=== PATIENT | female | born 1945 | race Caucasian/White ===

== ENCOUNTER 2016-11-11 08:07 | Day surgery (SDC) | payer MEDICARE ==
[2016-11-06 14:30] VITALS: BMI 31.8
[~2016-11-11 08:07] MED LIST: LACTATED RINGERS 1,000 ML IV SCH; LIDOCAINE 1% 20 ML VIAL (10MG/ML) FOR IV START INTRADERMA PRN
[2016-11-11] MEDS ORDERED: LACTATED RINGERS 1,000 ML IV ONE (08:37)
[2016-11-11 08:44] VITALS: TEMP 97.8
[2016-11-11] MEDS ORDERED: LIDOCAINE 1% 20 ML VIAL (10MG/ML) FOR IV START INTRADERMA ONE (08:44)
[2016-11-11 08:55] LABS: Glucose,Whole Blood 111 mg/dL (75-99)
[2016-11-11] MEDS ORDERED: LIDOCAINE 1% INJ 10MG/ML (20 ML MDV) ONE (09:42)
[2016-11-11] MEDS ORDERED: PROPOFOL 10 MG/ML 20 ML VIAL IV ONE (09:42)
[2016-11-11 10:04] VITALS: BP 110/59
--- NOTE | 2016-11-11 10:04 | P.PCN ---
Date of Procedure: 11/11/16 Procedure(s) Performed: Procedure: Total colonoscopy. Preoperative diagnosis: Screening for neoplasia. Postoperative diagnosis: Diverticulosis with no evidence of acute diverticulitis , strictures, polyps or cancer. Preparation: HalfLytely prep. Sedation: Was provided by anesthesia. Brief clinical history: The patient is a 71-year-old female who is referred for this evaluation for screening for neoplasia. She had a prior exam around 10 years ago. The patient has no abdominal complaints, bleeding or anemia. Procedure: With the patient on her left lateral decubitus position and after informed consent and adequate sedation, the perianal area was inspected and it did not show any fissures or fistulas. There were no masses felt on digital rectal examination. The Olympus CFQ 160L video colonoscope was then inserted in the rectum in the usual fashion and advanced to the cecum. There were a few diverticular orifices seen scattered in the sigmoid and on the right side with no evidence of acute diverticulitis or strictures. No polyps or tumors were seen. The mucosa appeared healthy. I retroflexed endoscope in the rectum before the endoscope was withdrawn. The patient tolerated the procedure well. Plan: The patient was reassured. Discussed dietary measures. Consideration can be given for repeat exam in 10 years depending on her overall health at that time. She will be discussing that with you. She will follow-up with you as planned.
[2016-11-11 10:31] VITALS: PULSE 56; RESP 18
== END 2016-11-11 10:44 | disposition home or self-care (01) ==
LOC: ORWHC2ENDO 08:07
DX: Z12.11 Encounter for screening for malignant neoplasm of colon (principal); K57.30 Diverticulosis of large intestine without perforation or abscess without bleeding; I12.9 Hypertensive chronic kidney disease with stage 1 through stage 4 chronic kidney disease, or unspecified chronic kidney disease; N18.9 Chronic kidney disease, unspecified; E78.5 Hyperlipidemia, unspecified; E11.9 Type 2 diabetes mellitus without complications; J45.909 Unspecified asthma, uncomplicated; M10.9 Gout, unspecified; Z79.84 Long term (current) use of oral hypoglycemic drugs; Z79.899 Other long term (current) drug therapy
CPT/HCPCS: J2001; J2704; G0121

== ENCOUNTER → 2016-12-23 | Outpatient (CLI) | payer MEDICARE ==
--- NOTE | 2016-12-23 14:11 | US ---
EXAMINATION TYPE: US kidneys/renal and bladder DATE OF EXAM: 12/23/2016 1:54 PM COMPARISON: NONE CLINICAL HISTORY: N18.3 STAGE III CKD. EXAM MEASUREMENTS: Right Kidney: 9.5 x 4.4 x 4.3cm cm Left Kidney: 9.9 x 4.4 x 4.8cm cm Right Kidney: no hydro or mass seen Left Kidney: no hydro or mass seen Bladder: wnl Bilateral Jets seen: Yes Incidental finding of thickened endometrium, post menopausal patient at 1.4cm There is no evidence for hydronephrosis at this point in time. No nephrolithiasis is seen. No lesia s are identified. The urinary bladder is anechoic. Bilateral ureteral jets are seen. IMPRESSION: No hydronephrosis is evident bilaterally. Note is made of abnormal thickened endometrium. Advise pelv ic ultrasound follow-up to better evaluate and characterize.
== END ==
LOC: RADUSWWP 13:32
PROVIDERS: ATTEND Family Medicine
DX: N18.3 Chronic kidney disease, stage 3 (moderate) (principal)
CPT/HCPCS: 76770

== ENCOUNTER → 2017-02-16 | Outpatient (CLI) | payer MEDICARE ==
--- NOTE | 2017-02-16 15:37 | US ---
EXAMINATION TYPE: US pelvic complete DATE OF EXAM: 02/16/2017 COMPARISON: NONE CLINICAL HISTORY: N85.00 ENDOMETRIAL HYPERPLASIA. Patient states no symptoms, 6, para 6 TECHNIQUE: Transvaginal (TV) and Transabdominal (TA) Date of LMP: 15+ years ago EXAM MEASUREMENTS: Uterus: 8.2 x 3.9 x 4.5 cm Endometrial Stripe: 1.2 cm Right Ovary: not seen Left Ovary: not seen 1. Uterus: anteverted, heterogeneous without any definite lesions seen at this time, nabothian cysts 2. Endometrium: thickened at 1.2cm, complex, vascular 3. Right Ovary: not seen due to overlying bowel 4. Left Ovary: not seen due to overlying bowel 5. Bilateral Adnexa: wnl 6. Posterior cul-de-sac: wnl Uterus is anteverted in shape and within normal limits in size. Endometriosis heterogeneously thicken ed with some solid and cystic component seen best on transvaginal evaluation. No free fluid is seen i n pelvis. Nabothian cysts are seen in the cervix. Neither ovary is present. No suspicious adnexal lesions are seen. IMPRESSION: Abnormal heterogeneous thickening of the endometrium for postmenopausal female, further i nvestigation with biopsy is advised.
== END | disposition home or self-care (01) ==
LOC: RADUSWWP 14:47
PROVIDERS: ATTEND Family Medicine
DX: R93.8 Abnormal findings on diagnostic imaging of other specified body structures (principal); N85.00 Endometrial hyperplasia, unspecified
CPT/HCPCS: 76830; 76856

== ENCOUNTER → 2017-03-30 | Outpatient (CLI) | payer MEDICARE ==
[2017-03-30 11:15] LABS: Basophils # (A) 0.1 k/uL (0-0.2); Basophils % (A) 1 %; CH 29.6; CHCM 33.3; Eosinophils # (A) 0.4 k/uL (0-0.7); Eosinophils % (A) 4 %; HCT 37.3 % (34.0-46.0); HDW 3.02; HGB 12.5 gm/dL (11.4-16.0); Luc # (Auto) 0.14; Luc % (Auto) 1; Lymphocytes # (A) 1.8 k/uL (1.0-4.8); Lymphocytes % (A) 18 %; MCH 29.9 pg (25.0-35.0); MCHC 33.4 g/dL (31.0-37.0); MCV 89.6 fL (80.0-100.0); Mean Platelet Volume 7.4; Monocytes # (A) 0.7 k/uL (0-1.0); Monocytes % (A) 7 %; Neutrophils # (A) 6.9 k/uL (1.3-7.7); Neutrophils % (A) 69 %; RBC 4.17 m/uL (3.80-5.40); RDW 15.5 % (11.5-15.5); WBC 9.9 k/uL (3.8-10.6)
== END | disposition home or self-care (01) ==
LOC: LABPAT 10:34
PROVIDERS: ATTEND Obstetrics & Gynecology
DX: Z01.810 Encounter for preprocedural cardiovascular examination (principal); Z01.818 Encounter for other preprocedural examination
CPT/HCPCS: 85025; 93005

== ENCOUNTER 2017-04-14 06:34 | Day surgery (SDC) | payer MEDICARE ==
[2017-04-08 12:35] VITALS: BMI 32.5
--- NOTE | 2017-04-13 07:06 | P.HPOB ---
History of Present Illness H&P Date: 04/13/17 Chief Complaint: Endometrial thickening on ultrasound This patient is a pleasant 71-year-old 6 para 6 female who referred herself to me for evaluation of an abnormal pelvic ultrasound. Patient apparently had an ultrasound done for unknown reasons that showed endometrium to be 1.2 cm with complex and vascular areas. Patient states she was not having any pain or bleeding and she herself is uncertain as to why she had the ultrasound. Patient did have an endometrial biopsy done by Dr. Thurston on February 19 did not show any tissue. Patient now presents for further evaluation by hysteroscopy and D&C. Review of Systems Constitutional: Denies chills, Denies fever Cardiovascular: Denies chest pain, Denies shortness of breath Respiratory: Denies cough Gastrointestinal: Denies abdominal pain, Denies diarrhea, Denies nausea, Denies vomiting Genitourinary: Reports as per HPI Menstruation: Reports amenorrhea, Reports postmenopausal Past Medical History Past Medical History: Asthma, Diabetes Mellitus, Hyperlipidemia, Hypertension, Renal Disease, Skin Disorder Additional Past Medical History / Comment(s): Psoriasis, kidneys functioning 29% , gout History of Any Multi-Drug Resistant Organisms: None Reported Past Surgical History: Cholecystectomy, Tubal Ligation Past Anesthesia/Blood Transfusion Reactions: No Reported Reaction Past Psychological History: No Psychological Hx Reported Smoking Status: Former smoker Past Alcohol Use History: None Reported Past Drug Use History: None Reported - Past Family History Mother Family Medical History: No Reported History Medications and Allergies Home Medications Medication Instructions Recorded Confirmed Type Atorvastatin [Lipitor] 40 mg PO HS 04/29/16 04/08/17 History Cholecalciferol [Vitamin D3] 2,000 unit PO DAILY 04/29/16 04/08/17 History Metoprolol Tartrate [Lopressor] 25 mg PO DAILY 04/29/16 04/08/17 History Allopurinol [Zyloprim] 300 mg PO AC-SUPPER 11/06/16 04/08/17 History Budesonide-Formot 160-4.5 Mcg 1 - 2 puff INHALATION BID 11/06/16 04/08/17 History [Symbicort 160-4.5 Mcg Inhaler] Glimepiride [Amaryl] 1 mg PO AC-BRKFST 11/06/16 04/08/17 History Aspirin [Adult Low Dose Aspirin EC] 81 mg PO DAILY 04/08/17 04/08/17 History Losartan [Cozaar] 50 mg PO DAILY 04/08/17 04/08/17 History Allergies Allergy/AdvReac Type Severity Reaction Status Date / Time No Known Allergies Allergy Verified 04/08/17 12:26 Exam - OBG Physical Exam Abdomen: bowel sounds normal, no diffuse tenderness, no bruit present, no guarding noted, no hepatomegaly, no splenomegaly, no mass Vulva: both: normal Vagina: no discharge, atrophic mucosa Cervix: no lesion, no discharge Uterus: normal size, normal contour Adnexa: both: normal Results Transvaginal ultrasound on February 16 showed the endometrium to be 1.2 cm. Assessment and Plan (1) Endometrial thickening on ultra sound Narrative/Plan: This is a pleasant 71-year-old 6 para 6 female with abnormal endometrial thickening on ultrasound who presents for hysteroscopy and D&C for further evaluation. Patient denies have discussed the surgery and risks including risks of infection, bleeding, possible uterine perforation. All the patient's questions are answered and a written consent is obtained. Status: Acute
[~2017-04-14 06:34] MED LIST changes: +HYDROmorphone 1 MG/ML 1 ML SYRINGE IVP PRN; -LIDOCAINE 1% 20 ML VIAL (10MG/ML) FOR IV START INTRADERMA PRN; +MIDAZOLAM 2 MG/2 ML VIAL IV PRN; +Pre Op ABX Message 1 EACH MISC MISCELLANE ONE
[2017-04-14 07:08] LABS: Glucose,Whole Blood 107 mg/dL (75-99)
[2017-04-14] MEDS ORDERED: LIDOCAINE 1% 20 ML VIAL (10MG/ML) FOR IV START INTRADERMA ONE (07:09)
[2017-04-14] MEDS: ONDANSETRON 4 MG/2 ML VIAL IVP ONE ×2 (07:13→08:19)
[2017-04-14] MEDS ORDERED: fentaNYL (PF) 50 MCG/ML 2 ML AMP ONE (07:23)
[2017-04-14] MEDS ORDERED: LIDOCAINE 1% INJ 10MG/ML (20 ML MDV) ONE (07:23)
[2017-04-14] MEDS ORDERED: PROPOFOL 10 MG/ML 20 ML VIAL IV ONE (07:23)
[2017-04-14 07:53] VITALS: TEMP 97.4
--- NOTE | 2017-04-14 07:55 | P.OP ---
Date of Procedure: 04/14/17 Preoperative Diagnosis: Abnormal endometrial thickening on ultrasound. Postoperative Diagnosis: Same Procedure(s) Performed: #1: Hysteroscopy. #2: Dilation and curettage. Implants: Anesthesia: MAC Surgeon: Clinton Gonzalez Estimated Blood Loss (ml): 10 Urine output (ml): 10 Pathology: other (Uterine curettings) Condition: stable Disposition: PACU Indications for Procedure: Please see dictated H&P for intimate details of this patient's admission. Brief summary is a pleasant 71-year-old 6 para 6 female who is self referred to pr for evaluation of abnormal pelvic ultrasound. Patient had a pelvic ultrasound showed endometrial thickening to 1.2 cm and insufficient endometrial biopsy. Patient now presents for hysteroscopy D&C for further evaluation. Patient does understand the surgery and risks including risks of infection, bleeding, possible uterine perforation. All the patient's questions are answered and a written consent is obtained. Operative Findings: This patient had a approximately 1-1/2-2 cm endometrial growths that appeared to be a polyp. Description of Procedure: This patient is taken to the operating room where she is laid in the supine position. She subsequently undergoes general mask anesthesia without incident. With an adequate level of anesthesia she's placed in the dorsal lithotomy position. She has a vaginal perineal prep and drape. Examination anesthesia shows a small uterus in the mid position. The bladder is drained at this time for 10 mL of clear urine. A weighted speculum was placed in the posterior vagina. Anterior lip of cervix was grabbed with an Allis clamp. Uterus is then sounded gently to about 7 cm. Gentle dilation at this time is done of the endocervix to allow the hysteroscope easily and the uterine cavity. Hysteroscopy is performed and the endocervix appears normal, there is a 1-1/2 cm growth in the endometrium consistent with a polyp. The rest the endometrium does look atrophic without other growths. This done the hysteroscope was then removed. Cervix is dilated more to allow a polyp forceps and the uterine cavity and the growth is then removed with appears to be intact. With this done a gentle thorough curettage of all 4 quadrants is done and this tissue sent off as well. With this completed the procedure is terminated. The Allis clamp and weighted speculum was removed. Patient is awakened from anesthesia and taken recovery room in satisfactory condition. There are no complications. All counts are correct 3.
[2017-04-14 08:13] LABS: Glucose,Whole Blood 103 mg/dL (75-99)
[2017-04-14] MEDS ORDERED: IBUPROFEN 200 MG TAB PO ONE (08:52)
[2017-04-14 09:34] VITALS: BP 135/60; PULSE 57; RESP 18
== END 2017-04-14 09:39 | disposition home or self-care (01) ==
LOC: OR 06:34
PROVIDERS: ATTEND Obstetrics & Gynecology
DX: N84.0 Polyp of corpus uteri (principal); I10 Essential (primary) hypertension; E78.5 Hyperlipidemia, unspecified; N28.9 Disorder of kidney and ureter, unspecified; E11.9 Type 2 diabetes mellitus without complications; Z79.84 Long term (current) use of oral hypoglycemic drugs; J44.9 Chronic obstructive pulmonary disease, unspecified; Z79.82 Long term (current) use of aspirin; Z79.51 Long term (current) use of inhaled steroids; Z79.899 Other long term (current) drug therapy
CPT/HCPCS: 88305; 58558; J2405; J2001; J3010; J2704

== ENCOUNTER → 2018-03-18 | Outpatient (CLI) | payer MEDICARE | END | disposition home or self-care (01) | LOC: LABWHC1 08:36 | PROVIDERS: ATTEND Family Medicine | DX: Z13.88 Encounter for screening for disorder due to exposure to contaminants (principal) | CPT/HCPCS: 36415; 83655 ==

== ENCOUNTER → 2018-11-03 | Outpatient (CLI) | payer MEDICARE ==
[2018-11-03 08:52] LABS: HCT 40.8 % (34.0-46.0); MCH 29.1 pg (25.0-35.0); MCHC 31.9 g/dL (31.0-37.0); MCV 91.1 fL (80.0-100.0); Mean Platelet Volume 7.4; Platelet Count 362 k/uL (150-450); RBC 4.48 m/uL (3.80-5.40); RDW 15.4 % (11.5-15.5); WBC 8.8 k/uL (3.8-10.6)
[2018-11-03 16:40] LABS: ALT 38 U/L (8-44); AST 32 U/L (13-35)
== END ==
LOC: LABWHC1 07:57
PROVIDERS: ATTEND Dermatology Dermatopathology
DX: L40.0 Psoriasis vulgaris (principal); Z79.899 Other long term (current) drug therapy
CPT/HCPCS: 36415; 84450; 84460; 85027

== ENCOUNTER → 2019-01-31 | Outpatient (CLI) | payer MEDICARE | END | disposition home or self-care (01) | LOC: LABWHC1 08:22 | PROVIDERS: ATTEND Dermatology Dermatopathology | DX: Z53.9 Procedure and treatment not carried out, unspecified reason (principal) ==

== ENCOUNTER → 2019-01-31 | Outpatient (CLI) | payer MEDICARE ==
[2019-01-31 09:20] LABS: Anisocytosis Slight; HGB 13.4 gm/dL (11.4-16.0); MCH 28.8 pg (25.0-35.0); Mean Platelet Volume 7.3; Platelet Count 326 k/uL (150-450); RBC 4.67 m/uL (3.80-5.40); RDW 16.3 % (11.5-15.5); WBC 10.7 k/uL (3.8-10.6)
[2019-01-31 17:30] LABS: ALT 35 U/L (8-44); AST 30 U/L (13-35)
== END ==
LOC: LABWHC1 08:55
PROVIDERS: ATTEND Dermatology Dermatopathology
DX: L40.0 Psoriasis vulgaris (principal); Z79.899 Other long term (current) drug therapy
CPT/HCPCS: 36415; 84450; 84460; 85027

== ENCOUNTER → 2019-04-18 | Outpatient (CLI) | payer MEDICARE ==
[2019-04-18 09:40] LABS: HCT 39.4 % (34.0-46.0); MCH 30.2 pg (25.0-35.0); MCV 91.3 fL (80.0-100.0); Mean Platelet Volume 7.5; Platelet Count 308 k/uL (150-450); RBC 4.31 m/uL (3.80-5.40); RDW 15.3 % (11.5-15.5); WBC 11.2 k/uL (3.8-10.6)
[2019-04-18 16:11] LABS: ALT 34 U/L (8-44); AST 26 U/L (13-35)
== END | disposition home or self-care (01) ==
LOC: LABWHC1 08:46
PROVIDERS: ATTEND Dermatology Dermatopathology
DX: L40.0 Psoriasis vulgaris (principal); Z79.899 Other long term (current) drug therapy
CPT/HCPCS: 36415; 84450; 84460; 85027

== ENCOUNTER → 2019-07-22 | Outpatient (CLI) | payer MEDICARE ==
[2019-07-22 09:06] LABS: HCT 41.6 % (34.0-46.0); HGB 13.7 gm/dL (11.4-16.0); MCH 30.5 pg (25.0-35.0); MCHC 32.9 g/dL (31.0-37.0); MCV 92.7 fL (80.0-100.0); Mean Platelet Volume 6.7; Platelet Count 309 k/uL (150-450); RBC 4.48 m/uL (3.80-5.40); WBC 11.8 k/uL (3.8-10.6)
[2019-07-22 16:21] LABS: ALT 42 U/L (8-44); AST 28 U/L (13-35)
== END | disposition home or self-care (01) ==
LOC: LABWHC1 08:06
PROVIDERS: ATTEND Dermatology Dermatopathology
DX: L40.0 Psoriasis vulgaris (principal); Z79.899 Other long term (current) drug therapy
CPT/HCPCS: 36415; 84450; 84460; 85027

== ENCOUNTER → 2019-10-25 | Outpatient (CLI) | payer MEDICARE ==
[2019-10-25 10:37] LABS: HGB 14.4 gm/dL (11.4-16.0); MCH 29.6 pg (25.0-35.0); MCHC 31.9 g/dL (31.0-37.0); MCV 92.5 fL (80.0-100.0); Mean Platelet Volume 8.5; Platelet Count 284 k/uL (150-450); RBC 4.86 m/uL (3.80-5.40); RDW 14.1 % (11.5-15.5); WBC 9.8 k/uL (3.8-10.6)
[2019-10-25 15:50] LABS: ALT 36 U/L (8-44); AST 30 U/L (13-35)
== END | disposition home or self-care (01) ==
LOC: LABWHC1 09:14
PROVIDERS: ATTEND Dermatology Dermatopathology
DX: L40.0 Psoriasis vulgaris (principal); Z79.899 Other long term (current) drug therapy
CPT/HCPCS: 36415; 84450; 84460; 85027

== ENCOUNTER → 2020-02-13 | Outpatient (CLI) | payer MEDICARE ==
[2020-02-13 10:54] LABS: HCT 44.2 % (34.0-46.0); HGB 13.8 gm/dL (11.4-16.0); MCH 28.7 pg (25.0-35.0); MCHC 31.1 g/dL (31.0-37.0); MCV 92.2 fL (80.0-100.0); Mean Platelet Volume 8.1; Platelet Count 322 k/uL (150-450); RBC 4.79 m/uL (3.80-5.40); RDW 15.2 % (11.5-15.5); WBC 12.7 k/uL (3.8-10.6)
[2020-02-13 17:20] LABS: ALT 39 U/L (8-44); AST 31 U/L (13-35)
== END | disposition home or self-care (01) ==
LOC: LABWHC1 08:48
PROVIDERS: ATTEND Dermatology Dermatopathology
DX: L40.0 Psoriasis vulgaris (principal); Z79.899 Other long term (current) drug therapy
CPT/HCPCS: 36415; 84450; 84460; 85027

== ENCOUNTER → 2020-05-17 | Outpatient (CLI) | payer MEDICARE ==
[2020-05-17 08:50] LABS: HCT 41.2 % (34.0-46.0); HGB 13.1 gm/dL (11.4-16.0); MCH 29.6 pg (25.0-35.0); MCHC 31.9 g/dL (31.0-37.0); MCV 92.6 fL (80.0-100.0); Mean Platelet Volume 8.5; Platelet Count 302 k/uL (150-450); RBC 4.44 m/uL (3.80-5.40); RDW 15.9 % (11.5-15.5); WBC 10.4 k/uL (3.8-10.6)
[2020-05-17 16:41] LABS: ALT 30 U/L (8-44); AST 29 U/L (13-35)
== END | disposition home or self-care (01) ==
LOC: LABWHC1 08:00
PROVIDERS: ATTEND Dermatology Dermatopathology
DX: L40.0 Psoriasis vulgaris (principal); Z79.899 Other long term (current) drug therapy
CPT/HCPCS: 36415; 84450; 84460; 85027

== ENCOUNTER → 2020-07-23 | Outpatient (CLI) | payer MEDICARE ==
[2020-07-23 08:31] LABS: Anisocytosis Slight; HGB 13.4 gm/dL (11.4-16.0); MCHC 33.4 g/dL (31.0-37.0); MCV 95.6 fL (80.0-100.0); Mean Platelet Volume 8.3; Platelet Count 299 k/uL (150-450); RBC 4.19 m/uL (3.80-5.40); RDW 16.4 % (11.5-15.5); WBC 11.6 k/uL (3.8-10.6)
[2020-07-23 15:50] LABS: ALT 33 U/L (8-44); AST 28 U/L (13-35)
== END | disposition home or self-care (01) ==
LOC: LABWHC1 07:49
PROVIDERS: ATTEND Dermatology Dermatopathology
DX: L40.0 Psoriasis vulgaris (principal); Z79.899 Other long term (current) drug therapy
CPT/HCPCS: 36415; 84450; 84460; 85027

== ENCOUNTER → 2020-10-02 | Outpatient (CLI) | payer MEDICARE ==
[2020-10-02 09:34] LABS: HCT 40.9 % (34.0-46.0); HGB 13.5 gm/dL (11.4-16.0); MCH 31.8 pg (25.0-35.0); MCHC 32.9 g/dL (31.0-37.0); MCV 96.5 fL (80.0-100.0); Mean Platelet Volume 7.8; Platelet Count 254 k/uL (150-450); RBC 4.24 m/uL (3.80-5.40); RDW 15.4 % (11.5-15.5); WBC 11.1 k/uL (3.8-10.6)
[2020-10-02 09:47] LABS: Potassium 4.8 mmol/L (3.5-5.1)
== END | disposition home or self-care (01) ==
LOC: LABPAT 08:36
PROVIDERS: ATTEND Internal Medicine Interventional Cardiology
DX: Z01.818 Encounter for other preprocedural examination (principal); I70.213 Atherosclerosis of native arteries of extremities with intermittent claudication, bilateral legs
CPT/HCPCS: 36415; 80051; 82565; 84520; 85027

== ENCOUNTER → 2020-10-23 | Outpatient (CLI) | payer MEDICARE ==
[2020-10-23 15:30] LABS: HCT 40.7 % (37.2-46.3); HGB 13.2 g/dL (12.0-15.0); MCH 30.8 pg (27.0-32.0); MCHC 32.4 g/dL (32.0-37.0); MCV 95.1 fL (80.0-97.0); Mean Platelet Volume 11.2 fL (9.5-12.2); Platelet Count 263 X 10*3/uL (140-440); RBC 4.28 X 10*6/uL (4.10-5.20); RDW 15.2 % (11.5-14.5); WBC 11.29 X 10*3/uL (4.50-10.00)
[2020-10-23 15:45] LABS: ALT 40 U/L (8-44); AST 30 U/L (13-35)
== END | disposition home or self-care (01) ==
LOC: LABWHC1 08:36
PROVIDERS: ATTEND Physician Assistant
DX: L40.0 Psoriasis vulgaris (principal); Z79.899 Other long term (current) drug therapy
CPT/HCPCS: 36415; 84450; 84460; 85027; 86480

== ENCOUNTER 2020-12-15 18:39 | Inpatient (IN) | payer MEDICARE ==
[2020-12-15] MEDS ORDERED: SODIUM CHLORIDE 0.9% 1,000 ML IV STA ×2 (19:09)
[2020-12-15] MEDS ORDERED: ALBUTEROL HFA INHALER INHALATION STA (19:17)
[2020-12-15] MEDS ORDERED: methylPREDNISolone SOD SUCCI 125 MG/2 ML VIAL IV STA (19:20)
[2020-12-15 19:32] LABS: Basophils % (A) 0 %; Eosinophils % (A) 0 %; HCT 38.4 % (34.0-46.0); Lymphocytes # (A) 0.9 k/uL (1.0-4.8); Lymphocytes % (A) 8 %; MCH 30.9 pg (25.0-35.0); MCHC 33.7 g/dL (31.0-37.0); MCV 91.5 fL (80.0-100.0); Mean Platelet Volume 8.3; Monocytes # (A) 0.7 k/uL (0-1.0); Monocytes % (A) 6 %; Neutrophils # (A) 9.7 k/uL (1.3-7.7); Neutrophils % (A) 83 %; Platelet Count 244 k/uL (150-450); RDW 15.1 % (11.5-15.5); WBC 11.6 k/uL (3.8-10.6)
[2020-12-15 19:47] LABS: Albumin 3.6 g/dL (3.5-5.0); Calcium 7.2 mg/dL (8.4-10.2); Magnesium 2.3 mg/dL (1.6-2.3); Total Bilirubin 0.9 mg/dL (0.2-1.3); Total Protein 6.8 g/dL (6.3-8.2)
[2020-12-15 19:48] LABS: Potassium 5.9 mmol/L (3.5-5.1)
--- NOTE | 2020-12-15 19:58 | XR ---
EXAMINATION TYPE: XR chest 2V DATE OF EXAM: 12/15/2020 COMPARISON: 12/05/2013 HISTORY: Difficulty breathing TECHNIQUE: 2 views FINDINGS: There is coarse interstitial infiltrate in both lungs. Heart size is normal. There are ches t leads. Costophrenic angles are fairly clear. Bony thorax is intact. IMPRESSION: Coarse pulmonary infiltrates appear new compared to old exam and consistent with moderate interstitial pneumonia. No pleural fluid seen to suggest heart failure.
[2020-12-15 20:01] LABS: Partial Thromboplastin Time 24.8 sec (22.0-30.0); Prothrombin Time 10.7 sec (9.0-12.0)
--- NOTE | 2020-12-15 20:35 | ED ---
SOB HPI - General Chief Complaint: Shortness of Breath Stated Complaint: Low O2 Time Seen by Provider: 12/15/20 18:53 Source: patient, RN notes reviewed Mode of arrival: ambulatory Limitations: no limitations - History of Present Illness Initial Comments: This is a 75-year-old female who has a history of diagnosed Covid 19 who was supposed get outpatient antibody infusion was found be hypoxemic on evaluation was brought here for further evaluation she is complaints of shortness of breath decreased oral intake. He was diagnosed yesterday with a viral infection. No other complaints by her she was found have her pulse ox in the 70s. MD Complaint: shortness of breath, cough - Related Data Home Medications Medication Instructions Recorded Confirmed Metoprolol Tartrate [Lopressor] 25 mg PO DAILY 04/29/16 12/15/20 Glimepiride [Amaryl] 0.5 mg PO AC-BRKFST 11/06/16 12/15/20 allopurinoL [Zyloprim] 300 mg PO DAILY 11/06/16 12/15/20 Azithromycin [Zithromax Z-pack (6 See Taper PO DIRECTED 12/15/20 12/15/20 tabs)] Dexamethasone 6 mg PO DAILY 12/15/20 12/15/20 Montelukast Sodium [Singulair] 10 mg PO DAILY 12/15/20 12/15/20 Pantoprazole Sodium [Protonix] 20 mg PO BID 12/15/20 12/15/20 Rosuvastatin [Crestor] 10 mg PO HS 12/15/20 12/15/20 Telmisartan [Micardis] 80 mg PO DAILY 12/15/20 12/15/20 Allergies Allergy/AdvReac Type Severity Reaction Status Date / Time No Known Allergies Allergy Verified 12/15/20 20:55 Review of Systems ROS Statement: Those systems with pertinent positive or pertinent negative responses have been documented in the HPI. ROS Other: All systems not noted in ROS Statement are negative. Past Medical History Past Medical History: Asthma, COPD, Diabetes Mellitus, Hyperlipidemia, Hypertension, Renal Disease, Skin Disorder Additional Past Medical History / Comment(s): Psoriasis, kidneys functioning 29%, gout History of Any Multi-Drug Resistant Organisms: None Reported Past Surgical History: Cholecystectomy, Tubal Ligation Past Anesthesia/Blood Transfusion Reactions: No Reported Reaction Past Psychological History: No Psychological Hx Reported Smoking Status: Former smoker Past Alcohol Use History: None Reported Past Drug Use History: None Reported - Past Family History Mother Family Medical History: No Reported History General Exam - General Exam Comments Initial Comments: This a well-developed well-nourished awake alert oriented 3 female Limitations: no limitations General appearance: alert, in no apparent distress Head exam: Present: atraumatic, normocephalic, normal inspection Eye exam: Present: normal appearance, PERRL, EOMI. Absent: scleral icterus, conjunctival injection, periorbital swelling ENT exam: Present: mucous membranes dry Neck exam: Present: normal inspection. Absent: tenderness, meningismus, lymphadenopathy Respiratory exam: Present: rales, decreased breath sounds. Absent: respiratory distress, wheezes, rhonchi, stridor Cardiovascular Exam: Present: regular rate, normal rhythm, normal heart sounds. Absent: systolic murmur, diastolic murmur, rubs, gallop, clicks GI/Abdominal exam: Present: soft, normal bowel sounds. Absent: distended, tenderness, guarding, rebound, rigid Extremities exam: Present: normal inspection, full ROM, normal capillary refill. Absent: tenderness, pedal edema, joint swelling, calf tenderness Back exam: Present: normal inspection Neurological exam: Present: alert, oriented X3, CN II-XII intact Psychiatric exam: Present: normal affect, normal mood Skin exam: Present: warm, dry, intact, normal color. Absent: rash Course Vital Signs 12/15/20 12/15/20 12/15/20 18:41 19:19 20:19 Temperature 97.9 F Pulse Rate 70 69 Respiratory 22 18 Rate Blood Pressure 130/64 121/60 O2 Sat by Pulse 93 L 93 L 95 Oximetry Medical Decision Making - Medical Decision Making I did discuss findings with the patient she did demonstrate evidence of acute kidney injury but he acidosis likely on the basis of dehydration she is Covid 19 positive in addition to hypoxemia. Sodium 126 and d-dimer is 1.21 this is also likely elevated on the basis of the QT kidney injury VQ scan will be ordered for the morning. - Lab Data Result diagrams: 12/15/20 19:15 12/15/20 19:15 Lab Results 12/15/20 12/15/20 12/15/20 Range/Units 19:15 19:15 19:15 WBC 11.6 H (3.8-10.6) k/uL RBC 4.20 (3.80-5.40) m/uL Hgb 13.0 (11.4-16.0) gm/dL Hct 38.4 (34.0-46.0) % MCV 91.5 (80.0-100.0) fL MCH 30.9 (25.0-35.0) pg MCHC 33.7 (31.0-37.0) g/dL RDW 15.1 (11.5-15.5) % Plt Count 244 (150-450) k/uL MPV 8.3 Neutrophils % 83 % Lymphocytes % 8 % Monocytes % 6 % Eosinophils % 0 % Basophils % 0 % Neutrophils # 9.7 H (1.3-7.7) k/uL Lymphocytes # 0.9 L (1.0-4.8) k/uL Monocytes # 0.7 (0-1.0) k/uL Eosinophils # 0.0 (0-0.7) k/uL Basophils # 0.0 (0-0.2) k/uL PT 10.7 (9.0-12.0) sec INR 1.0 (<1.2) APTT 24.8 (22.0-30.0) sec D-Dimer 1.21 H (<0.60) mg/L FEU Sodium 126 L (137-145) mmol/L Potassium 5.9 H (3.5-5.1) mmol/L Chloride 96 L (98-107) mmol/L Carbon Dioxide 17 L (22-30) mmol/L Anion Gap 13 mmol/L BUN 86 H (7-17) mg/dL Creatinine 2.98 H (0.52-1.04) mg/dL Est GFR (CKD-EPI)AfAm 17 (>60 ml/min/1.73 sqM) Est GFR (CKD-EPI)NonAf 15 (>60 ml/min/1.73 sqM) Glucose 161 H (74-99) mg/dL Lactic Ac Sepsis Rflx Plasma Lactic Acid Ming (0.7-2.0) mmol/L Calcium 7.2 L (8.4-10.2) mg/dL Magnesium 2.3 (1.6-2.3) mg/dL Total Bilirubin 0.9 (0.2-1.3) mg/dL AST 85 H (14-36) U/L ALT 43 H (4-34) U/L Alkaline Phosphatase 66 (38-126) U/L Creatine Kinase 370 H (30-135) U/L Troponin I (0.000-0.034) ng/mL NT-Pro-B Natriuret Pep pg/mL Total Protein 6.8 (6.3-8.2) g/dL Albumin 3.6 (3.5-5.0) g/dL 12/15/20 12/15/20 12/15/20 Range/Units 19:15 19:15 19:15 WBC (3.8-10.6) k/uL RBC (3.80-5.40) m/uL Hgb (11.4-16.0) gm/dL Hct (34.0-46.0) % MCV (80.0-100.0) fL MCH (25.0-35.0) pg MCHC (31.0-37.0) g/dL RDW (11.5-15.5) % Plt Count (150-450) k/uL MPV Neutrophils % % Lymphocytes % % Monocytes % % Eosinophils % % Basophils % % Neutrophils # (1.3-7.7) k/uL Lymphocytes # (1.0-4.8) k/uL Monocytes # (0-1.0) k/uL Eosinophils # (0-0.7) k/uL Basophils # (0-0.2) k/uL PT (9.0-12.0) sec INR (<1.2) APTT (22.0-30.0) sec D-Dimer (<0.60) mg/L FEU Sodium (137-145) mmol/L Potassium (3.5-5.1) mmol/L Chloride (98-107) mmol/L Carbon Dioxide (22-30) mmol/L Anion Gap mmol/L BUN (7-17) mg/dL Creatinine (0.52-1.04) mg/dL Est GFR (CKD-EPI)AfAm (>60 ml/min/1.73 sqM) Est GFR (CKD-EPI)NonAf (>60 ml/min/1.73 sqM) Glucose (74-99) mg/dL Lactic Ac Sepsis Rflx Plasma Lactic Acid Ming 2.9 H* (0.7-2.0) mmol/L Calcium (8.4-10.2) mg/dL Magnesium (1.6-2.3) mg/dL Total Bilirubin (0.2-1.3) mg/dL AST (14-36) U/L ALT (4-34) U/L Alkaline Phosphatase (38-126) U/L Creatine Kinase (30-135) U/L Troponin I <0.012 (0.000-0.034) ng/mL NT-Pro-B Natriuret Pep 621 pg/mL Total Protein (6.3-8.2) g/dL Albumin (3.5-5.0) g/dL 12/15/20 12/15/20 Range/Units 19:53 21:58 WBC (3.8-10.6) k/uL RBC (3.80-5.40) m/uL Hgb (11.4-16.0) gm/dL Hct (34.0-46.0) % MCV (80.0-100.0) fL MCH (25.0-35.0) pg MCHC (31.0-37.0) g/dL RDW (11.5-15.5) % Plt Count (150-450) k/uL MPV Neutrophils % % Lymphocytes % % Monocytes % % Eosinophils % % Basophils % % Neutrophils # (1.3-7.7) k/uL Lymphocytes # (1.0-4.8) k/uL Monocytes # (0-1.0) k/uL Eosinophils # (0-0.7) k/uL Basophils # (0-0.2) k/uL PT (9.0-12.0) sec INR (<1.2) APTT (22.0-30.0) sec D-Dimer (<0.60) mg/L FEU Sodium (137-145) mmol/L Potassium (3.5-5.1) mmol/L Chloride (98-107) mmol/L Carbon Dioxide (22-30) mmol/L Anion Gap mmol/L BUN (7-17) mg/dL Creatinine (0.52-1.04) mg/dL Est GFR (CKD-EPI)AfAm (>60 ml/min/1.73 sqM) Est GFR (CKD-EPI)NonAf (>60 ml/min/1.73 sqM) Glucose (74-99) mg/dL Lactic Ac Sepsis Rflx Y Plasma Lactic Acid Ming 1.8 (0.7-2.0) mmol/L Calcium (8.4-10.2) mg/dL Magnesium (1.6-2.3) mg/dL Total Bilirubin (0.2-1.3) mg/dL AST (14-36) U/L ALT (4-34) U/L Alkaline Phosphatase (38-126) U/L Creatine Kinase (30-135) U/L Troponin I (0.000-0.034) ng/mL NT-Pro-B Natriuret Pep pg/mL Total Protein (6.3-8.2) g/dL Albumin (3.5-5.0) g/dL - EKG Data -: EKG Interpreted by Me EKG Comments: Neuro sinus rhythm a 75 KS interval 188 QRS duration 82 QT since QTC 46/[address]-T wave changes - Radiology Data Radiology results: report reviewed (Imaging reviewed diffuse interstitial infiltrates), image reviewed Disposition Clinical Impression: Pneumonia due to COVID-19 virus, Acute kidney injury, Dehydration, Hyponatremia, Hypoxemia, Elevated d-dimer Disposition: ADMITTED IP TO THIS HOSP Condition: Fair Referrals: Nilsa Thurston MD [Primary Care Provider] - 1-2 days
[2020-12-15 20:56] LABS: D-Dimer 1.21 mg/L FEU (<0.60)
[2020-12-15] MEDS ORDERED: NALOXONE 0.4 MG/ML 1 ML VIAL IV PRN (22:41)
[2020-12-15] MEDS ORDERED: ACETAMINOPHEN TAB 325 MG TAB PO PRN (22:41)
[2020-12-15] MEDS: AZITHROMYCIN 250 MG TAB PO SCH (23:07)
[2020-12-15] MEDS: SODIUM CHLORIDE 0.9% 1,000 ML IV SCH (23:08)
[2020-12-16] MEDS: ALBUTEROL HFA INHALER INHALATION SCH ×5 (04:40→22:17)
--- NOTE | 2020-12-16 08:21 | NM ---
EXAMINATION TYPE: NM pul perfusion DATE OF EXAM: 12/16/2020 COMPARISON: Radiographs 12/15/2020. HISTORY: Shortness of breath and elevated d-dimer. Following administration of 4.9 mCi Tc 99m MAA. Images obtained post injection. FINDINGS: There are 2 small segmental perfusion defects in the right middle and lower lobe. Otherwise homogenou s perfusion elsewhere. IMPRESSION: Low probability for acute PE in the right lung.
[2020-12-16] MEDS: SODIUM CHLORIDE 0.9% 1,000 ML IV SCH ×2 (08:51→15:23)
[2020-12-16] MEDS: METOPROLOL TARTRATE 25 MG TAB PO SCH (08:52)
[2020-12-16] MEDS: ZINC SULFATE 220 MG CAP PO SCH (08:52)
[2020-12-16] MEDS: ASCORBIC ACID 500 MG TAB PO SCH (08:52)
[2020-12-16] MEDS: MONTELUKAST 10 MG TAB PO SCH (08:53)
[2020-12-16] MEDS: dexAMETHasone 2 MG TAB PO SCH (08:53)
[2020-12-16] MEDS: CHOLECALCIFEROL 25 MCG (1000 IU) TABLET PO SCH (08:53)
[2020-12-16 08:54] LABS: HCT 37.3 % (34.0-46.0); HGB 12.6 gm/dL (11.4-16.0); MCH 31.6 pg (25.0-35.0); MCHC 33.9 g/dL (31.0-37.0); Mean Platelet Volume 7.8; Platelet Count 249 k/uL (150-450); RBC 4.01 m/uL (3.80-5.40); RDW 15.2 % (11.5-15.5); WBC 10.1 k/uL (3.8-10.6)
[2020-12-16] MEDS: PANTOPRAZOLE 40 MG/10 ML VIAL IV SCH (08:54)
[2020-12-16] MEDS: ENOXAPARIN 40 MG/0.4 ML SYRINGE SQ SCH (08:55)
[2020-12-16] MEDS ORDERED: LOSARTAN 50 MG TAB PO SCH (09:00)
[2020-12-16] MEDS ORDERED: allopurinoL 300 MG TAB PO SCH (09:00)
[2020-12-16 09:06] LABS: Albumin 3.3 g/dL (3.5-5.0); Calcium 6.8 mg/dL (8.4-10.2); Magnesium 2.5 mg/dL (1.6-2.3); Potassium 5.7 mmol/L (3.5-5.1); Total Bilirubin 0.6 mg/dL (0.2-1.3); Total Protein 6.2 g/dL (6.3-8.2)
[2020-12-16] MEDS: GLIMEPIRIDE 1 MG TAB PO SCH (09:09)
[2020-12-16 09:36] LABS: Glucose,Whole Blood 191 mg/dL (75-99)
--- NOTE | 2020-12-16 10:23 | P.HPIM ---
History of Present Illness H&P Date: 12/16/20 HISTORY OF PRESENT ILLNESS: 75-year-old female one of Dr. Thurston's patient with multiple medical problem known to have history of COPD, type 2 diabetes, hypertension, chronic kidney disease who apparently was exposed to Covid 19 from her daughter and granddaughter 5 days ago, patient was tested on Thursday was positive. Patient developed to have worsening dyspnea and shortness of breath cough productive DrRamírez phlegm along with tightness and wheezes with low-grade temperature and nausea and abdominal pain with generalized fatigue tiredness become debilitated not been able to ambulate and walk her symptoms become much worse ended up coming to the emergency department at [facility] on 12/15/2020 where was seen and evaluated her chest x-ray showed bilateral infiltrate, patient was hypoxic requiring high flow O2. Patient was started on steroid pulmonary consultation was obtained patient will be hospitalized with above problem. REVIEW OF SYSTEMS: Constitutional: Generalized fatigue, low-grade temperature, night sweats, weakness and lethargy and significant shortness of breath. EENT: No headache. No blurred vision or double vision, no loss of vision. No loss of Hearing, no ringing in the ears, no dizziness. No nasal drainage or congestion. No epistaxis. No sore throat. Lungs: Significant dyspnea and shortness of breath cough wheezes. Cardiovascular: No chest pain, no lower extremity edema. No palpitations. No paroxysmal nocturnal dyspnea. No orthopnea. No lightheadedness or dizziness. No syncopal episodes. Abdominal: No abdominal pain. No nausea, vomiting. No diarrhea. No constipation. No bloody or tarry stools.. No loss of appetite. Genitourinary: No dysuria, increased frequency, urgency. No urinary retention. Musculoskeletal: No myalgias. No muscle weakness, no gait dysfunction, no frequent falls. No back pain. No neck pain. Integumentary: No wounds, no lesions. No rash or pruritus. No unusual bruising. No change in hair or nails. Neurologic: No aphasia. No facial droop. No change in mentation. No head injury. No headache. No paralysis. No paresthesia. Psychiatric: No depression. No anxiety. No mood swings. Endocrine: No abnormal blood sugars. No weight change. No excessive sweating or thirst. No cold intolerance. SOCIAL HISTORY: She quit smoking 16 years ago he smoked pack a day for 20 years no alcohol abuse no drug use she is and lives with her family. FAMILY HISTORY: Father age 83 from CVA, mother age 80 from cancer most likely breast, patient had 6 children are all living and well and 16 siblings few have passed from CAD cancer and COPD. PHYSICAL EXAMINATION: Gen: This is 75-year-old female in mild respiratory distress slightly bit anxious having mild wheezes. HEENT: Head is atraumatic, normocephalic. Pupils equal, round. Sclerae is anicteric. NECK: Supple. No JVD. No lymphadenopathy. No thyromegaly. LUNGS: Decreased breath some bilateral rhonchi slight crackles in the bases more in the right than the left side mild expiratory wheezes. HEART: Regular rate and rhythm. No murmur. Mild tachycardia ABDOMEN: Soft. Bowel sounds are present. No masses. No tenderness. EXTREMITIES: No pedal edema. No calf tenderness. NEUROLOGICAL: Patient is awake, alert and oriented x3. Cranial nerves 2 through 12 are grossly intact. ASSESSMENT AND PLAN: 1. Acute respiratory failure: Secondary to Covid 19 mellitus. Continue high flow O2 deny consultation continue updraft treatment and steroid. 2. Acute Covid 19 pneumonitis: Patient be seen pulmonary she might be a good candidate to start antiviral medication, she is ready pastime for monoclonal antibiotic infusion, continue steroid management continue updraft continue O2 along with zinc vitamin D and vitamin C. Patient marker will be drawn every 2 days and repeat chest x-ray returned days. 3. D-dimer: The kidney function being abnormal patient will be going for VQ scan in the meanwhile continue anticoagulation management.. 4. Acute kidney injury with chronic kidney disease: Her creatinine is much worse up to 2.98 with GFR only at 15, continue hydration we'll consult nep hrology.. 5. Severe hyponatremia: Most likely the effect of the Covid 19 causing mild SIADH, continue fluid restriction repeat CMP in 24 hours. 6. Type 2 diabetes: Continue Accu-Chek with sliding scales coverage orders home oral hypoglycemic medication which has less effect this point.. 7. COPD with slight excess patient specially with the Covid 19 infection and pneumonitis continue dexamethasone 6 mg a day, continue DuoNeb and Pulmicort. 8. Hypertension: Resume losartan 150 mg a day along with metoprolol 25 mg daily. 9. Hyperlipidemia: Continue patient on atorvastatin 20 mg daily.. 10. GI prophylaxis: Continue patient on pantoprazole 40 mg a day. 11. DVT prophylaxis: Continue Lovenox 40 mg subcutaneous daily. CODE STATUS: Full code. Patient will be admitted to the hospital for a minimum of 2 night stay. Past Medical History Past Medical History: Asthma, COPD, Diabetes Mellitus, Hyperlipidemia, Hypertension, Renal Disease, Skin Disorder Additional Past Medical History / Comment(s): Psoriasis, kidneys functioning 29%, gout History of Any Multi-Drug Resistant Organisms: None Reported Past Surgical History: Cholecystectomy, Tubal Ligation Past Anesthesia/Blood Transfusion Reactions: No Reported Reaction Past Psychological History: No Psychological Hx Reported Smoking Status: Former smoker Past Alcohol Use History: None Reported Past Drug Use History: None Reported - Past Family History Mother Family Medical History: No Reported History Medications and Allergies Home Medications Medication Instructions Recorded Confirmed Type Metoprolol Tartrate [Lopressor] 25 mg PO DAILY 04/29/16 12/15/20 History Glimepiride [Amaryl] 0.5 mg PO AC-BRKFST 11/06/16 12/15/20 History allopurinoL [Zyloprim] 300 mg PO DAILY 11/06/16 12/15/20 History Azithromycin [Zithromax Z-pack (6 See Taper PO DIRECTED 12/15/20 12/15/20 H istory tabs)] Dexamethasone 6 mg PO DAILY 12/15/20 12/15/20 History Montelukast Sodium [Singulair] 10 mg PO DAILY 12/15/20 12/15/20 History Pantoprazole Sodium [Protonix] 20 mg PO BID 12/15/20 12/15/20 History Rosuvastatin [Crestor] 10 mg PO HS 12/15/20 12/15/20 History Telmisartan [Micardis] 80 mg PO DAILY 12/15/20 12/15/20 History Allergies Allergy/AdvReac Type Severity Reaction Status Date / Time No Known Allergies Allergy Verified 12/15/20 20:55 Physical Exam Vitals: Vital Signs Temp Pulse Resp BP Pulse Ox 12/16/20 04:51 75 18 128/74 93 L 12/16/20 02:44 97.5 F L 61 18 114/54 98 12/15/20 23:13 66 20 125/95 93 L 12/15/20 20:19 69 18 121/60 95 12/15/20 19:19 93 L 12/15/20 18:41 97.9 F 70 22 130/64 93 L Intake and Output 12/15/20 12/15/20 12/16/20 14:59 22:59 06:59 Other: Weight 76.204 kg Results CBC & Chem 7: 12/16/20 08:35 12/16/20 08:35 Labs: Abnormal Lab Results - Last 24 Hours (Table) 12/15/20 12/15/20 12/15/20 Range/Units 19:15 19:15 19:15 WBC 11.6 H (3.8-10.6) k/uL Neutrophils # 9.7 H (1.3-7.7) k/uL Lymphocytes # 0.9 L (1.0-4.8) k/uL D-Dimer 1.21 H (<0.60) mg/L FEU Sodium 126 L (137-145) mmol/L Potassium 5.9 H (3.5-5.1) mmol/L Chloride 96 L (98-107) mmol/L Carbon Dioxide 17 L (22-30) mmol/L BUN 86 H (7-17) mg/dL Creatinine 2.98 H (0.52-1.04) mg/dL Glucose 161 H (74-99) mg/dL Plasma Lactic Acid Ming (0.7-2.0) mmol/L Calcium 7.2 L (8.4-10.2) mg/dL AST 85 H (14-36) U/L ALT 43 H (4-34) U/L Creatine Kinase 370 H (30-135) U/L Coronavirus (PCR) (Not Detectd) 12/15/20 12/15/20 Range/Units 19:15 23:12 WBC (3.8-10.6) k/uL Neutrophils # (1.3-7.7) k/uL Lymphocytes # (1.0-4.8) k/uL D-Dimer (<0.60) mg/L FEU Sodium (137-145) mmol/L Potassium (3.5-5.1) mmol/L Chloride (98-107) mmol/L Carbon Dioxide (22-30) mmol/L BUN (7-17) mg/dL Creatinine (0.52-1.04) mg/dL Glucose (74-99) mg/dL Plasma Lactic Acid Ming 2.9 H* (0.7-2.0) mmol/L Calcium (8.4-10.2) mg/dL AST (14-36) U/L ALT (4-34) U/L Creatine Kinase (30-135) U/L Coronavirus (PCR) Detected A (Not Detectd)
--- NOTE | 2020-12-16 12:02 | P.CNPUL ---
History of Present Illness Consult date: 12/16/20 Requesting physician: Hay Menon Reason for consult: hypoxemia, pneumonia Chief complaint: Shortness of breath and cough. History of present illness: This is a 75-year-old female primarily a patient Dr. Thurston, patient is known to have history of COPD, hypertension, type 2 diabetes, chronic kidney disease. Patient was recently exposed to her granddaughter and she tested positive for covid 19. Patient tested positive last Thursday. However she had symptoms now for almost 10 days symptoms are classic symptoms of Covid 19 pneumonia. Patient had cough, shortness of breath, fever, nausea vomiting, diarrhea, fatigue, aches and pains. Patient was seen in the emergency room on 12/15/2020, and her chest x- ray showed evidence of bilateral infiltrates. Patient was also noted to be hypoxic, and she required high flow oxygen and high FiO2. Patient is presently on a nonrebreather mask, 100% FiO2, and her O2 saturation is marginal. Patient was admitted to the ICU after I reviewed her chest x-ray and I reviewed her vitals, and I saw her on consultation in the ICU. Patient is now on a high flow cannula at 50 L in the ICU, and her O2 saturation 92%. Hemodynamically stable. And she had a temp of 98. CBC was relatively normal. Electrolytes showed elevated potassium of 5.7 BUN is 71 creatinine 2.32. LDH was 1760, lactic acid was 1.8. And her PCR for wan virus was positive. D-dimer was 1.87. Review of Systems Constitutional: Generalized fatigue, low-grade temperature, night sweats, weakness and lethargy and significant shortness of breath. EENT: No headache. No blurred vision or double vision, no loss of vision. No loss of Hearing, no ringing in the ears, no dizziness. No nasal drainage or congestion. No epistaxis. No sore throat. Lungs: Significant dyspnea and shortness of breath cough wheezes. Cardiovascular: No chest pain, no lower extremity edema. No palpitations. No paroxysmal nocturnal dyspnea. No orthopnea. No lightheadedness or dizziness. No syncopal episodes. Abdominal: No abdominal pain. No nausea, vomiting. No diarrhea. No constipation. No bloody or tarry stools.. No loss of appetite. Genitourinary: No dysuria, increased frequency, urgency. No urinary retention. Musculoskeletal: No myalgias. No muscle weakness, no gait dysfunction, no frequent falls. No back pain. No neck pain. Integumentary: No wounds, no lesions. No rash or pruritus. No unusual bruising. No change in hair or nails. Neurologic: No aphasia. No facial droop. No change in mentation. No head injury. No headache. No paralysis. No paresthesia. Psychiatric: No depression. No anxiety. No mood swings. Endocrine: No abnormal blood sugars. No weight change. No excessive sweating or thirst. No cold intolerance. Past Medical History Past Medical History: Asthma, COPD, Diabetes Mellitus, Hyperlipidemia, Hypertension, Renal Disease, Skin Disorder Additional Past Medical History / Comment(s): Psoriasis, kidneys functioning 29%, gout History of Any Multi-Drug Resistant Organisms: None Reported Past Surgical History: Cholecystectomy, Tubal Ligation Past Anesthesia/Blood Transfusion Reactions: No Reported Reaction Past Psychological History: No Psychological Hx Reported Smoking Status: Former smoker Past Alcohol Use History: None Reported Past Drug Use History: None Reported - Past Family History Mother Family Medical History: No Reported History Medications and Allergies Home Medications Medication Instructions Recorded Confirmed Type Metoprolol Tartrate [Lopressor] 25 mg PO DAILY 04/29/16 12/15/20 History Glimepiride [Amaryl] 0.5 mg PO AC-BRKFST 11/06/16 12/15/20 History allopurinoL [Zyloprim] 300 mg PO DAILY 11/06/16 12/15/20 History Azithromycin [Zithromax Z-pack (6 See Taper PO DIRECTED 12/15/20 12/15/20 History tabs)] Dexamethasone 6 mg PO DAILY 12/15/20 12/15/20 History Montelukast Sodium [Singulair] 10 mg PO DAILY 12/15/20 12/15/20 History Pantoprazole Sodium [Protonix] 20 mg PO BID 12/15/20 12/15/20 History Rosuvastatin [Crestor] 10 mg PO HS 12/15/20 12/15/20 History Telmisartan [Micardis] 80 mg PO DAILY 12/15/20 12/15/20 History Allergies Allergy/AdvReac Type Severity Reaction Status Date / Time No Known Allergies Allergy Verified 12/15/20 20:55 Physical Exam Vitals: Vital Signs Temp Pulse Resp BP Pulse Ox 12/16/20 11:00 98.0 F 62 24 100/50 92 L 12/16/20 10:10 65 24 88 L 12/16/20 10:00 63 18 110/58 87 L 12/16/20 09:50 65 22 87 L 12/16/20 09:40 97.5 F L 66 26 H 128/111 88 L 12/16/20 09:31 72 12/16/20 08:50 97.6 F 76 18 130/61 94 L 12/16/20 07:19 76 20 122/86 91 L 12/16/20 06:00 57 L 18 99 12/16/20 04:51 75 18 128/74 93 L 12/16/20 02:44 97.5 F L 61 18 114/54 98 12/15/20 23:13 66 20 125/95 93 L 12/15/20 20:19 69 18 121/60 95 12/15/20 19:19 93 L 12/15/20 18:41 97.9 F 70 22 130/64 93 L Intake and Output 12/15/20 12/16/20 12/16/20 22:59 06:59 14:59 Intake Total 260 Output Total 0 Balance 260 Intake: IV 260 Sodium Chloride 0.9% 1, 260 000 ml @ 130 mls/hr IV . [id number] [facility] Rx#:[id number] Output: Urine 0 Other: # Voids 1 Weight 76.204 kg Physical Exam Physical exam revealed a 75-year-old female pleasant in mild respiratory distress. Head: Atraumatic, normocephalic. HEENT:[Neck is supple.] [No neck masses.] [No thyromegaly.] [No JVD.] Chest: [Symmetrical chest expansion, fine crackles at the bases, no rhonchi and no wheezes Cardiac Exam: [Normal S1 and S2, no S3 gallop, no murmur.] Abdomen: [Soft, nontender, no megaly, no rebound, no guarding, normal bowel sounds.] Extremities: [No clubbing, no edema, no cyanosis.] Neurological Exam: [No focal neurologic deficit.] Alert oriented 3. Psychiatric: Normal mood, affect and normal mental status examination. Results - Laboratory Findings CBC and BMP: 12/16/20 08:35 12/16/20 08:35 PT/INR, D-dimer PT 10.7 sec (9.0-12.0) 12/15/20 19:15 INR 1.0 (<1.2) 12/15/20 19:15 D-Dimer 1.87 mg/L FEU (<0.60) H 12/16/20 08:35 Abnormal lab findings: Abnormal Labs 12/15/20 12/15/20 12/15/20 19:15 19:15 19:15 WBC 11.6 H Neutrophils # 9.7 H Lymphocytes # 0.9 L D-Dimer 1.21 H Sodium 126 L Potassium 5.9 H Chloride 96 L Carbon Dioxide 17 L BUN 86 H Creatinine 2.98 H Glucose 161 H POC Glucose (mg/dL) Plasma Lactic Acid Ming Calcium 7.2 L Magnesium AST 85 H ALT 43 H Lactate Dehydrogenase Creatine Kinase 370 H Total Protein Albumin Coronavirus (PCR) 12/15/20 12/15/20 12/16/20 19:15 23:12 08:35 WBC Neutrophils # Lymphocytes # D-Dimer 1.87 H Sodium Potassium Chloride Carbon Dioxide BUN Creatinine Glucose POC Glucose (mg/dL) Plasma Lactic Acid Ming 2.9 H* Calcium Magnesium AST ALT Lactate Dehydrogenase Creatine Kinase Total Protein Albumin Coronavirus (PCR) Detected A 12/16/20 12/16/20 08:35 09:35 WBC Neutrophils # Lymphocytes # D-Dimer Sodium 135 L Potassium 5.7 H Chloride Carbon Dioxide 21 L BUN 71 H Creatinine 2.32 H Glucose 200 H POC Glucose (mg/dL) 191 H Plasma Lactic Acid Ming Calcium 6.8 L Magnesium 2.5 H AST 82 H ALT 49 H Lactate Dehydrogenase 1760 H Creatine Kinase Total Protein 6.2 L Albumin 3.3 L Coronavirus (PCR) - Diagnostic Findings Chest x-ray: image reviewed (Diffuse bilateral interstitial infiltrates) Assessment and Plan Assessment: Impression: Acute hypoxic respiratory failure secondary to acute covid 19 pneumonitis. Acute on chronic kidney disease. Could be related to hypovolemia. Hypovolemic hyponatremia on presentation, improved with hydration. Acute hyperkalemia secondary to acute on chronic kidney disease. Elevated inflammatory markers. Type 2 diabetes. Benign essential hypertension. Dyslipidemia. History of underlying COPD, presently in active. Recommendation: Continue high FiO2 and titrate accordingly. Continue hydration using 0.9 normal saline at 100 mL per hour. Continue the Covid 19 cocktails. Continue Lovenox. Continue Decadron. Continue GI and DVT prophylaxis. Continue tight control of her blood sugars. Will recommend actemra and convalescent plasma if available. Patient is beyond the window for treatment with REM. Prognosis is definitely guarded. We'll continue to follow in the ICU Time with Patient: Greater than 30
[2020-12-16 12:16] LABS: Glucose,Whole Blood 194 mg/dL (75-99)
[2020-12-16 12:17] LABS: Ferritin 2442.5 ng/mL (10.0-291.0)
--- NOTE | 2020-12-16 12:22 | P.NPCON ---
History of Present Illness - Reason for Consult Consult date: 12/16/20 acute renal failure, hyperkalemia - Chief Complaint Shortness of breath - History of Present Illness 75-year-old female coming to the hospital with the above complaints. She was diagnosed with Covid last week Thursday and was staying at home. She was developing progressive shortness of breath associated with cough and phlegm. She also had low-grade fever with abdominal pain. She has chronic kidney disease stage III with a baseline creatinine of 1.5 MG per DL. On admission serum creatinine was 2.9, started on IV fluids improved to 2.3 today. She had fevers associated with poor oral intake nausea vomiting and diarrhea. No NSAID use or recent contrast studies. She takes allopurinol and telmisartan at home. Blood pressures were in 80s systolic on arrival. Review of Systems Constitutional: Reports as per HPI Past Medical History Past Medical History: Asthma, COPD, Diabetes Mellitus, Hyperlipidemia, Hyp ertension, Renal Disease, Skin Disorder Additional Past Medical History / Comment(s): Psoriasis, kidneys functioning 29%, gout History of Any Multi-Drug Resistant Organisms: None Reported Past Surgical History: Cholecystectomy, Tubal Ligation Past Anesthesia/Blood Transfusion Reactions: No Reported Reaction Past Psychological History: No Psychological Hx Reported Smoking Status: Former smoker Past Alcohol Use History: None Reported Past Drug Use History: None Reported - Past Family History Mother Family Medical History: No Reported History Medications and Allergies Home Medications Medication Instructions Recorded Confirmed Type Metoprolol Tartrate [Lopressor] 25 mg PO DAILY 04/29/16 12/15/20 History Glimepiride [Amaryl] 0.5 mg PO AC-BRKFST 11/06/16 12/15/20 History allopurinoL [Zyloprim] 300 mg PO DAILY 11/06/16 12/15/20 History Azithromycin [Zithromax Z-pack (6 See Taper PO DIRECTED 12/15/20 12/15/20 History tabs)] Dexamethasone 6 mg PO DAILY 12/15/20 12/15/20 History Montelukast Sodium [Singulair] 10 mg PO DAILY 12/15/20 12/15/20 History Pantoprazole Sodium [Protonix] 20 mg PO BID 12/15/20 12/15/20 History Rosuvastatin [Crestor] 10 mg PO HS 12/15/20 12/15/20 History Telmisartan [Micardis] 80 mg PO DAILY 12/15/20 12/15/20 History Allergies Allergy/AdvReac Type Severity Reaction Status Date / Time No Known Allergies Allergy Verified 12/15/20 20:55 Physical Exam Vitals: Vital Signs Temp Pulse Resp BP Pulse Ox 12/16/20 12:00 98.0 F 65 17 117/76 94 L 12/16/20 11:00 98.0 F 62 24 100/50 92 L 12/16/20 10:10 65 24 88 L 12/16/20 10:00 63 18 110/58 87 L 12/16/20 09:50 65 22 87 L 12/16/20 09:40 97.5 F L 66 26 H 128/111 88 L 12/16/20 09:31 72 12/16/20 08:50 97.6 F 76 18 130/61 94 L 12/16/20 07:19 76 20 122/86 91 L 12/16/20 06:00 57 L 18 99 12/16/20 04:51 75 18 128/74 93 L 12/16/20 02:44 97.5 F L 61 18 114/54 98 12/15/20 23:13 66 20 125/95 93 L 12/15/20 20:19 69 18 121/60 95 12/15/20 19:19 93 L 12/15/20 18:41 97.9 F 70 22 130/64 93 L Intake and Output 12/15/20 12/16/20 12/16/20 22:59 06:59 14:59 Intake Total 335 Output Total 550 Balance -215 Intake: IV 335 Sodium Chloride 0.9% 1, 335 000 ml @ 75 mls/hr IV . [id number] [facility] Rx#:[id number] Output: Urine 550 Other: # Voids 0 Weight 76.204 kg Exam limited secondary to Covid 19 pandemic to limit PPE. Results - Lab Results Most recent lab results Calcium 6.8 mg/dL (8.4-10.2) L 12/16/20 08:35 Magnesium 2.5 mg/dL (1.6-2.3) H 12/16/20 08:35 12/16/20 08:35 12/16/20 08:35 Assessment and Plan Assessment: #1 nonoliguric acute kidney injury suspect hemodynamic /Covid 19 ATN with low blood pressure and concomitant use of telmisartan. #2 hyperkalemia secondary to acute kidney injury/telmisartan. #3 hyponatremia secondary to hypovolemia from nausea vomiting and diarrhea. #4 Covid 19 pneumonia #5 chronic kidney disease stage III suspect nephrosclerosis with a baseline creatinine of 1.5 MG per DL. Plan: #1 agree with IV fluids continue at 75 ML's an hour. Monitor closely for respiratory status. #2 stop losartan/allopurinol with hyperkalemia and acute kidney injury. #3 bladder scan to rule out urinary retention. #4 strict ins and outs, renal ultrasound, urine analysis and urine electrolytes. #5 avoid nephrotoxic agents and hypotensive episodes #6 no acute indication for INTRAMURAL DIRECTOR at this time.
[2020-12-16] MEDS: INSULIN ASPART (NovoLOG) 100 UNIT/ML VIAL SQ SCH ×3 (12:54→20:38)
--- NOTE | 2020-12-16 13:33 | US ---
EXAMINATION TYPE: US kidneys/renal and bladder DATE OF EXAM: 12/16/2020 COMPARISON: NONE CLINICAL HISTORY: 75 year-old female acute kidney injury. TECHNIQUE: Multiple sonographic images of the kidneys and bladder are obtained. FINDINGS: EXAM MEASUREMENTS: Right Kidney: 9.1 x 3.9 x 3.5 cm Left Kidney: 9.7 x 4.5 x 4.1 cm Right Kidney: Small extrarenal pelvis. No calyceal dilatation to suggest hydronephrosis. Medial corti elizabeth cyst measuring 1.1 x 0.8 x 1.1cm Left Kidney: No evidence of hydronephrosis Bladder: appears wnl Bilateral Jets seen: yes Incidental echogenic appearance to the visualized liver. IMPRESSION: No hydronephrosis. A 1.1 cm cortical cyst in the right kidney. There may be underlying hepatic steato sis partially visualized.
[2020-12-16 13:41] LABS: Creatinine,Urine Random 70.2 mg/dL
[2020-12-16 13:42] LABS: Appearance,Urine Clear (Clear); Bacteria,Urine Rare /hpf; Bilirubin,Urine Negative (Negative); Blood,Urine Trace (Negative); Color,Urine Light Yellow; Glucose,Urine (UA) Negative (Negative); Ketones,Urine Negative (Negative); Leukocyte Esterase,Urine Negative (Negative); Mucus,Urine Rare /hpf; Nitrite,Urine Negative (Negative); PH, Urine 5.5 (5.0-8.0); Protein,Urine 1+ (Negative); RBC,Urine <1 /hpf (0-5); Specific Gravity,Urine 1.016 (1.001-1.035); Urobilinogen,Urine <2.0 mg/dL (<2.0); WBC,Urine 1 /hpf (0-5)
[2020-12-16 14:31] LABS: Erythrocyte Sedimentation Rate 77 mm/hr (0-20)
[2020-12-16 18:08] LABS: Glucose,Whole Blood 271 mg/dL (75-99)
[2020-12-16] MEDS: AZITHROMYCIN 250 MG TAB PO SCH (20:19)
[2020-12-16] MEDS: ATORVASTATIN 20 MG TAB PO SCH (20:19)
[2020-12-16 20:26] LABS: Glucose,Whole Blood 244 mg/dL (75-99)
[2020-12-17] MEDS: ALBUTEROL HFA INHALER INHALATION SCH ×6 (01:26→19:39)
[2020-12-17] MEDS: SODIUM CHLORIDE 0.9% 1,000 ML IV SCH ×2 (03:30→23:00)
[2020-12-17 05:27] LABS: HCT 36.7 % (34.0-46.0); HGB 12.2 gm/dL (11.4-16.0); MCH 31.1 pg (25.0-35.0); MCHC 33.1 g/dL (31.0-37.0); MCV 93.9 fL (80.0-100.0); Platelet Count 291 k/uL (150-450); RBC 3.91 m/uL (3.80-5.40); RDW 15.5 % (11.5-15.5); WBC 14.4 k/uL (3.8-10.6)
[2020-12-17 05:39] LABS: Albumin 2.9 g/dL (3.5-5.0); Calcium 6.8 mg/dL (8.4-10.2); Total Bilirubin 0.7 mg/dL (0.2-1.3); Total Protein 5.6 g/dL (6.3-8.2)
[2020-12-17 05:58] LABS: Potassium 6.4 mmol/L (3.5-5.1)
[2020-12-17 06:17] LABS: Glucose,Whole Blood 150 mg/dL (75-99)
[2020-12-17] MEDS ORDERED: INSULIN REGULAR 100 UNIT/ML VIAL IV ONE ×3 (06:27→19:13)
[2020-12-17] MEDS ORDERED: DEXTROSE 50% SYRINGE 50 ML IVP STA ×3 (06:28→19:14)
[2020-12-17] MEDS: GLIMEPIRIDE 1 MG TAB PO SCH (06:44)
[2020-12-17] MEDS: INSULIN ASPART (NovoLOG) 100 UNIT/ML VIAL SQ SCH ×4 (06:44→22:59)
[2020-12-17 07:11] LABS: Phosphorus 3.2 mg/dL (2.5-4.5)
[2020-12-17 07:45] LABS: Erythrocyte Sedimentation Rate 58 mm/hr (0-20)
--- NOTE | 2020-12-17 08:14 | XR ---
EXAMINATION TYPE: XR chest 1V portable DATE OF EXAM: 12/17/2020 Comparison: 12/15/2020 Clinical History: 75-year-old female Pneumonia Findings: Heart mildly enlarged. Redemonstrated interstitial opacities with increasing and more confluent bilat eral airspace disease. No pleural effusion. Impression: Progression with more confluent formation of bilateral airspace disease now.
[2020-12-17] MEDS: dexAMETHasone 2 MG TAB PO SCH (09:43)
[2020-12-17] MEDS: ASCORBIC ACID 500 MG TAB PO SCH (09:43)
[2020-12-17] MEDS: CHOLECALCIFEROL 25 MCG (1000 IU) TABLET PO SCH (09:43)
[2020-12-17] MEDS: METOPROLOL TARTRATE 25 MG TAB PO SCH (09:44)
[2020-12-17] MEDS: ZINC SULFATE 220 MG CAP PO SCH (09:45)
[2020-12-17] MEDS: MONTELUKAST 10 MG TAB PO SCH (09:45)
[2020-12-17] MEDS: ENOXAPARIN 40 MG/0.4 ML SYRINGE SQ SCH (09:45)
[2020-12-17] MEDS: PANTOPRAZOLE 40 MG/10 ML VIAL IV SCH (09:45)
[2020-12-17] MEDS ORDERED: TOCILIZUMAB 640 MG in SODIUM CHLORIDE 0.9% 68 ML IV ONE (11:00)
[2020-12-17 11:26] LABS: Glucose,Whole Blood 177 mg/dL (75-99)
--- NOTE | 2020-12-17 11:52 | P.PN ---
Subjective Progress Note Date: 12/17/20 HISTORY OF PRESENT ILLNESS: 75-year-old female one of Dr. Thurston's patient with multiple medical problem known to have history of COPD, type 2 diabetes, hypertension, chronic kidney disease who apparently was exposed to Covid 19 from her daughter and granddaughter 5 days ago, patient was tested on Thursday was positive. Patient developed to have worsening dyspnea and shortness of breath cough productive Dr. phlegm along with tightness and wheezes with low-grade temperature and nausea and abdominal pain with generalized fatigue tiredness become debilitated not been able to ambulate and walk her symptoms become much worse ended up coming to the emergency department at [facility] on 12/15/2020 where was seen and evaluated her chest x-ray showed bilateral infiltrate, patient was hypoxic requiring high flow O2. Patient was started on steroid pulmonary consultation was obtained patient will be hospitalized with above problem. 12/17: Patient remains in the ICU, on nonrebreather with pulse ox running between 85 and 92%. Respiratory rate in the 20s to 30, heart rate in the 70s and 80s, afebrile, blood pressure 126/59. Repeat blood work reveals WBC 14.4, hemoglobin 12.2, count 291. D-dimer 2.48. Sodium 134 initially 6.4 this morning repeat 5.9. Chloride 105, CO2 23, BUN 55 and creatinine 1.53. Blood sugars running between 143 and 244. Ferritin 2825. AST 85, ALT 53. LDH 2007. CK 146. Repeat chest x-ray reveals progression with more confluent formation of bilateral airspace disease. Renal ultrasound reveals no hydronephrosis. A 1.1 cm cortical cyst in the right kidney. There may be underlying hepatic steatosis. Patient is followed by nephrology with plan to continue IV fluids at 75 mL per hour, patient of losartan and allopurinol. Strict I&O, bladder scan. REVIEW OF SYSTEMS: Constitutional: Generalized fatigue, low-grade temperature, night sweats, weakness and lethargy and significant shortness of breath. EENT: No headache. No blurred vision or double vision, no loss of vision. No loss of Hearing, no ringing in the ears, no dizziness. No nasal drainage or congestion. No epistaxis. No sore throat. Lungs: Significant dyspnea and shortness of breath cough wheezes. Cardiovascular: No chest pain, no lower extremity edema. No palpitations. No paroxysmal nocturnal dyspnea. No orthopnea. No lightheadedness or dizziness. No syncopal episodes. Abdominal: No abdominal pain. No nausea, vomiting. No diarrhea. No constipation. No bloody or tarry stools.. No loss of appetite. Genitourinary: No dysuria, increased frequency, urgency. No urinary retention. Musculoskeletal: No myalgias. No muscle weakness, no gait dysfunction, no frequent falls. No back pain. No neck pain. Integumentary: No wounds, no lesions. No rash or pruritus. No unusual bruising. No change in hair or nails. Neurologic: No aphasia. No facial droop. No change in mentation. No head injury. No headache. No paralysis. No paresthesia. Psychiatric: No depression. No anxiety. No mood swings. Endocrine: Noted abnormal blood sugars. No weight change. PHYSICAL EXAMINATION: Gen: This is 75-year-old female in mild respiratory distress with mild wheezes. HEENT: Head is atraumatic, normocephalic. Pupils equal, round. Sclerae is anicteric. NECK: Supple. No JVD. No lymphadenopathy. No thyromegaly. LUNGS: Decreased breath some bilateral rhonchi slight crackles in the bases more in the right than the left side mild expiratory wheezes. HEART: Regular rate and rhythm. No murmur. Mild tachycardia ABDOMEN: Soft. Bowel sounds are present. No masses. No tenderness. EXTREMITIES: No pedal edema. No calf tenderness. NEUROLOGICAL: Patient is awake, alert and oriented x3. Cranial nerves 2 through 12 are grossly intact. ASSESSMENT AND PLAN: 1. Acute hypoxic respiratory failure: Secondary to Covid 19 infection. Continue high flow O2 deny consultation continue updraft treatment and steroid. Pulmonary medicine consult appreciated. 2. Acute Covid 19 pneumonitis: Patient be seen pulmonary she might be a good candidate to start antiviral medication, she is ready pastime for monoclonal antibiotic infusion, continue steroid management continue updraft continue O2 along with zinc vitamin D and vitamin C. Patient marker will be drawn every 2 days and repeat chest x-ray returned days. 3. D-dimer: The kidney function being abnormal patient will be going for VQ scan in the meanwhile continue anticoagulation management.. 4. Acute kidney injury with chronic kidney disease stage III: Her creatinine is much worse up to 2.98 with GFR only at 15, continue hydration we'll consult nephrology.. 5. Severe hyponatremia, resolved: Most likely the effect of the Covid 19 causing mild SIADH, continue fluid restriction repeat CMP in 24 hours. 6. Type 2 diabetes, uncontrolled with hyperglycemia. Continue glimepiride 0.5 mg with breakfast, NovoLog scale. 7. COPD with slight exacerbation with the Covid 19 infection and pneumonitis continue dexamethasone 6 mg a day, continue DuoNeb and Pulmicort. 8. Hypertension: Hold losartan, continue metoprolol 25 mg daily. 9. Hyperlipidemia: Continue patient on atorvastatin 20 mg daily.. 10. GI prophylaxis: Continue patient on pantoprazole 40 mg a day. 11. DVT prophylaxis: Continue Lovenox 40 mg subcutaneous daily. CODE STATUS: Full code. DISCHARGE PLAN To be determined. Impression and plan of care have been directed as dictated by the signing physician. Yecenia Mendosa nurse practitioner acting as scribe for signing physician. Objective - Vital Signs Vital signs: Vital Signs Temp 99 F 12/17/20 08:00 Pulse 87 12/17/20 08:00 Resp 26 H 12/17/20 08:00 BP 113/34 12/17/20 08:00 Pulse Ox 86 L 12/17/20 09:05 Intake & Output 12/16/20 12/17/20 12/17/20 18:59 06:59 18:59 Intake Total 785 900 75 Output Total 1835 885 80 Balance -1050 15 -5 Weight 81.3 kg Intake: IV 785 900 75 Sodium Chloride 0.9% 1, 785 900 75 000 ml @ 75 mls/hr IV . [id number] [facility] Rx#:[id number] Output: Urine 1535 885 80 Post Void Residual 300 Other: Voiding Method Indwelling Catheter Indwelling Catheter # Voids 0 - Labs CBC & Chem 7: 12/17/20 04:27 12/17/20 04:27 Labs: Abnormal Lab Results - Last 24 Hours (Table) 12/16/20 12/16/20 12/16/20 Range/Units 08:35 08:35 09:35 WBC (3.8-10.6) k/uL ESR 77 H (0-20) mm/hr D-Dimer (<0.60) mg/L FEU Sodium (137-145) mmol/L Potassium (3.5-5.1) mmol/L BUN (7-17) mg/dL Creatinine (0.52-1.04) mg/dL Glucose (74-99) mg/dL POC Glucose (mg/dL) 191 H (75-99) mg/dL Calcium (8.4-10.2) mg/dL Ferritin 2442.5 H (10.0-291.0) ng/mL AST (14-36) U/L ALT (4-34) U/L Lactate Dehydrogenase (313-618) U/L Creatine Kinase (30-135) U/L Total Protein (6.3-8.2) g/dL Albumin (3.5-5.0) g/dL Urine Protein (Negative) Urine Blood (Negative) Urine Bacteria (None) /hpf Urine Mucus (None) /hpf 12/16/20 12/16/20 12/16/20 Range/Units 12:15 13:17 17:56 WBC (3.8-10.6) k/uL ESR (0-20) mm/hr D-Dimer (<0.60) mg/L FEU Sodium (137-145) mmol/L Potassium (3.5-5.1) mmol/L BUN (7-17) mg/dL Creatinine (0.52-1.04) mg/dL Glucose (74-99) mg/dL POC Glucose (mg/dL) 194 H 271 H (75-99) mg/dL Calcium (8.4-10.2) mg/dL Ferritin (10.0-291.0) ng/mL AST (14-36) U/L ALT (4-34) U/L Lactate Dehydrogenase (313-618) U/L Creatine Kinase (30-135) U/L Total Protein (6.3-8.2) g/dL Albumin (3.5-5.0) g/dL Urine Protein 1+ H (Negative) Urine Blood Trace H (Negative) Urine Bacteria Rare H (None) /hpf Urine Mucus Rare H (None) /hpf 12/16/20 12/17/20 12/17/20 Range/Units 20:25 04:27 04:27 WBC 14.4 H (3.8-10.6) k/uL ESR 58 H (0-20) mm/hr D-Dimer 2.48 H (<0.60) mg/L FEU Sodium (137-145) mmol/L Potassium (3.5-5.1) mmol/L BUN (7-17) mg/dL Creatinine (0.52-1.04) mg/dL Glucose (74-99) mg/dL POC Glucose (mg/dL) 244 H (75-99) mg/dL Calcium (8.4-10.2) mg/dL Ferritin (10.0-291.0) ng/mL AST (14-36) U/L ALT (4-34) U/L Lactate Dehydrogenase (313-618) U/L Creatine Kinase (30-135) U/L Total Protein (6.3-8.2) g/dL Albumin (3.5-5.0) g/dL Urine Protein (Negative) Urine Blood (Negative) Urine Bacteria (None) /hpf Urine Mucus (None) /hpf 12/17/20 12/17/20 12/17/20 Range/Units 04:27 04:27 06:15 WBC (3.8-10.6) k/uL ESR (0-20) mm/hr D-Dimer (<0.60) mg/L FEU Sodium 134 L (137-145) mmol/L Potassium 6.4 H* (3.5-5.1) mmol/L BUN 55 H (7-17) mg/dL Creatinine 1.53 H (0.52-1.04) mg/dL Glucose 143 H (74-99) mg/dL POC Glucose (mg/dL) 150 H (75-99) mg/dL Calcium 6.8 L (8.4-10.2) mg/dL Ferritin (10.0-291.0) ng/mL AST 85 H (14-36) U/L ALT 53 H (4-34) U/L Lactate Dehydrogenase 2007 H (313-618) U/L Creatine Kinase 146 H (30-135) U/L Total Protein 5.6 L (6.3-8.2) g/dL Albumin 2.9 L (3.5-5.0) g/dL Urine Protein (Negative) Urine Blood (Negative) Urine Bacteria (None) /hpf Urine Mucus (None) /hpf Microbiology - Last 24 Hours (Table) 12/15/20 20:18 Blood Culture - Preliminary Blood No Growth after 24 hours 12/15/20 20:00 Blood Culture - Preliminary Blood No Growth after 24 hours
[2020-12-17] MEDS ORDERED: FUROSEMIDE 10 MG/ML 4 ML VIAL IV STA (13:27)
--- NOTE | 2020-12-17 13:47 | P.PN ---
Subjective Progress Note Date: 12/17/20 Principal diagnosis: hypoxemia, pneumonia This is a 75-year-old female primarily a patient Dr. Thurston, patient is known to have history of COPD, hypertension, type 2 diabetes, chronic kidney disease. Patient was recently exposed to her granddaughter and she tested positive for c ovid 19. Patient tested positive last Thursday. However she had symptoms now for almost 10 days symptoms are classic symptoms of Covid 19 pneumonia. Patient had cough, shortness of breath, fever, nausea vomiting, diarrhea, fatigue, aches and pains. Patient was seen in the emergency room on 12/15/2020, and her chest x- ray showed evidence of bilateral infiltrates. Patient was also noted to be hypo xic, and she required high flow oxygen and high FiO2. Patient is presently on a nonrebreather mask, 100% FiO2, and her O2 saturation is marginal. Patient was admitted to the ICU after I reviewed her chest x-ray and I reviewed her vitals, and I saw her on consultation in the ICU. Patient is now on a high flow cannula at 50 L in the ICU, and her O2 saturation 92%. Hemodynamically stable. And she had a temp of 98. CBC was relatively normal. Electrolytes showed elevated potassium of 5.7 BUN is 71 creatinine 2.32. LDH was 1760, lactic acid was 1.8. And her PCR for wan virus was positive. D-dimer was 1.87. On 12/17/2020 patient seen in follow-up in intensive care unit, patient was ad mitted on 12/15/2020 with Covid pneumonia and acute kidney injury, onset of symptoms was 90s prior to presentation. Transfer to the ICU on the same day on 12/15/2020, patient is on 15 L of oxygen and 100% nonrebreather, and his pulse ox is between 85-88%. Patient has been afebrile. Hemodynamically stable, 0.9 normal saline was seen infusing at 75 ML per hour. Awake and alert, appears to be in no acute distress. Patient refused convalescent plasma transfusion, she is awaiting possibly some rehab today she is expected to be available this morning. Remains on dexamethasone 6 mg daily, vitamins, and prophylactic anticoagulation in the form of Lovenox. Today's potassium was 6.4 and patient was given insulin and dextrose, nephrology is following and managing electrolytes. Today's chest x-ray shows progression with more confluent formation of bilateral airspace disease. Objective - Vital Signs Vital signs: Vital Signs Temp 99 F 12/17/20 08:00 Pulse 66 12/17/20 13:00 Resp 24 12/17/20 13:00 BP 102/50 12/17/20 13:00 Pulse Ox 88 L 12/17/20 13:00 Intake & Output 12/16/20 12/17/20 12/17/20 18:59 06:59 18:59 Intake Total 785 900 550 Output Total 1835 885 390 Balance -1050 15 160 Weight 81.3 kg Intake: IV 785 900 450 Sodium Chloride 0.9% 1, 785 900 450 000 ml @ 75 mls/hr IV . [id number] [facility] Rx#:[id number] Oral 100 Output: Urine 1535 885 390 Post Void Residual 300 Other: Voiding Method Indwelling Catheter Indwelling Catheter Indwelling Catheter # Voids 0 - Exam GENERAL EXAM: Alert, very pleasant 75-year-old white female, liters of oxygen per high flow nasal cannula and on her percent nonrebreather with a pulse ox of 88% comfortable in no apparent distress. HEAD: Normocephalic/atraumatic. EYES: Normal reaction of pupils, equal size. Conjunctiva pink, sclera white. NOSE: Clear with pink turbinates. THROAT: No erythema or exudates. NECK: No masses, no JVD, no thyroid enlargement, no adenopathy. CHEST: No chest wall deformity. Symmetrical expansion. LUNGS: Equal air entry with no crackles, wheeze, rhonchi or dullness. CVS: Regular rate and rhythm, normal S1 and S2, no gallops, no murmurs, no rubs ABDOMEN: Soft, nontender. No hepatosplenomegaly, normal bowel sounds, no guarding or rigidity. EXTREMITIES: No clubbing, no edema, no cyanosis, 2+ pulses and upper and lower extremities. MUSCULOSKELETAL: Muscle strength and tone normal. SPINE: No scoliosis or deformity SKIN: No rashes CENTRAL NERVOUS SYSTEM: Alert and oriented -3. No focal deficits, tone is normal in all 4 extremities. PSYCHIATRIC: Alert and oriented -3. Appropriate affect. Intact judgment and insight. - Labs CBC & Chem 7: 12/17/20 04:27 12/17/20 10:16 Labs: Abnormal Lab Results - Last 24 Hours (Table) 12/16/20 12/16/20 12/16/20 Range/Units 08:35 13:17 17:56 WBC (3.8-10.6) k/uL ESR 77 H (0-20) mm/hr D-Dimer (<0.60) mg/L FEU Sodium (137-145) mmol/L Potassium (3.5-5.1) mmol/L BUN (7-17) mg/dL Creatinine (0.52-1.04) mg/dL Glucose (74-99) mg/dL POC Glucose (mg/dL) 271 H (75-99) mg/dL Calcium (8.4-10.2) mg/dL Ferritin (10.0-291.0) ng/mL AST (14-36) U/L ALT (4-34) U/L Lactate Dehydrogenase (313-618) U/L Creatine Kinase (30-135) U/L Total Protein (6.3-8.2) g/dL Albumin (3.5-5.0) g/dL Urine Protein 1+ H (Negative) Urine Blood Trace H (Negative) Urine Bacteria Rare H (None) /hpf Urine Mucus Rare H (None) /hpf 12/16/20 12/17/20 12/17/20 Range/Units 20:25 04:27 04:27 WBC 14.4 H (3.8-10.6) k/uL ESR 58 H (0-20) mm/hr D-Dimer 2.48 H (<0.60) mg/L FEU Sodium (137-145) mmol/L Potassium (3.5-5.1) mmol/L BUN (7-17) mg/dL Creatinine (0.52-1.04) mg/dL Glucose (74-99) mg/dL POC Glucose (mg/dL) 244 H (75-99) mg/dL Calcium (8.4-10.2) mg/dL Ferritin (10.0-291.0) ng/mL AST (14-36) U/L ALT (4-34) U/L Lactate Dehydrogenase (313-618) U/L Creatine Kinase (30-135) U/L Total Protein (6.3-8.2) g/dL Albumin (3.5-5.0) g/dL Urine Protein (Negative) Urine Blood (Negative) Urine Bacteria (None) /hpf Urine Mucus (None) /hpf 12/17/20 12/17/20 12/17/20 Range/Units 04:27 04:27 06:15 WBC (3.8-10.6) k/uL ESR (0-20) mm/hr D-Dimer (<0.60) mg/L FEU Sodium 134 L (137-145) mmol/L Potassium 6.4 H* (3.5-5.1) mmol/L BUN 55 H (7-17) mg/dL Creatinine 1.53 H (0.52-1.04) mg/dL Glucose 143 H (74-99) mg/dL POC Glucose (mg/dL) 150 H (75-99) mg/dL Calcium 6.8 L (8.4-10.2) mg/dL Ferritin 2825.0 H (10.0-291.0) ng/mL AST 85 H (14-36) U/L ALT 53 H (4-34) U/L Lactate Dehydrogenase 2007 H (313-618) U/L Creatine Kinase 146 H (30-135) U/L Total Protein 5.6 L (6.3-8.2) g/dL Albumin 2.9 L (3.5-5.0) g/dL Urine Protein (Negative) Urine Blood (Negative) Urine Bacteria (None) /hpf Urine Mucus (None) /hpf 12/17/20 12/17/20 Range/Units 10:16 11:23 WBC (3.8-10.6) k/uL ESR (0-20) mm/hr D-Dimer (<0.60) mg/L FEU Sodium (137-145) mmol/L Potassium 5.9 H (3.5-5.1) mmol/L BUN (7-17) mg/dL Creatinine (0.52-1.04) mg/dL Glucose (74-99) mg/dL POC Glucose (mg/dL) 177 H (75-99) mg/dL Calcium (8.4-10.2) mg/dL Ferritin (10.0-291.0) ng/mL AST (14-36) U/L ALT (4-34) U/L Lactate Dehydrogenase (313-618) U/L Creatine Kinase (30-135) U/L Total Protein (6.3-8.2) g/dL Albumin (3.5-5.0) g/dL Urine Protein (Negative) Urine Blood (Negative) Urine Bacteria (None) /hpf Urine Mucus (None) /hpf Microbiology - Last 24 Hours (Table) 12/15/20 20:18 Blood Culture - Preliminary Blood No Growth after 24 hours 12/15/20 20:00 Blood Culture - Preliminary Blood No Growth after 24 hours Assessment and Plan Plan: Assessment: #1. Acute hypoxic respiratory failure secondary to acute coronary 19 pneumonitis #2. Acute on chronic kidney disease, likely related to hypovolemia #3. Hypovolemic hyponatremia on presentation improvement with hydration #4. Acute hyperkalemia secondary to acute on chronic kidney disease #5. Elevated inflammatory markers #6. Type 2 diabetes mellitus #7. Benign essential hypertension #8. Dyslipidemia #9. History of underlying COPD Plan: Continue prophylactic anticoagulation, continue IV hydration, continue the vitamins, continue current dose Decadron, and GI DVT prophylaxis, patient has received a dose of Actemra, she has refused convalescent plasma transfusion, we will continue to closely follow her electrolytes, renal profile, inflammatory markers, follow-up chest x-ray in the morning, daily d-dimer. We'll continue to closely follow her clinical course in the ICU and make further recommendations I performed a history & physical examination of the patient and discussed their management with my nurse practitioner, Monique Phelan. I reviewed the nurse practitioner's note and agree with the documented findings and plan of care. Lung sounds are positive for diminished breath sounds. The findings and the impression was discussed with the patient. I attest to the documentation by the nurse practitioner. Time with Patient: Greater than 30
--- NOTE | 2020-12-17 14:29 | PN ---
PROGRESS NOTE The patient is seen for followup for acute kidney injury. She is being treated for COVID-19 pneumonia. Patient is awake. She is maintained on 100% non-rebreather. Oxygen status has been stable. Renal function is improving. However, potassium was elevated at 6.4 today. PHYSICAL EXAMINATION: On examination today, blood pressure 93/63, heart rate 60 per minute. She is afebrile. Examination shows no significant edema lower extremities. Abdomen is soft, nontender. Lungs and heart are not examined due to COVID. LABS: Labs show sodium 134, potassium 6.4 this morning, chloride 105, BUN 55, creatinine 1.53, hemoglobin 12.2 g/dL. ASSESSMENT: 1. Acute kidney injury, acute tubular necrosis, from underlying infection and some degree of hypoperfusion currently improving. Patient is maintained on IV fluids. 2. Hyperkalemia associated with acute kidney injury, use of angiotensin receptor blockers currently off of telmisartan. The patient will be maintained on low- potassium diet. I will also give her a dose of IV Lasix. 3. COVID-19 pneumonia. 4. Chronic kidney disease stage 3 secondary to nephrosclerosis. Baseline creatinine about 1.5 mg/dL. PLAN: Continue with IV fluids for now. Adjust diet for low-potassium diet. Add a dose of IV Lasix if potassium remains elevated. MMODL / IJN: [id number] /
[2020-12-17 16:39] LABS: Glucose,Whole Blood 148 mg/dL (75-99)
[2020-12-17] MEDS ORDERED: SODIUM POLYSTYRENE SULFONATE 15 GM/60 ML BOTTLE PO ONE (19:14)
[2020-12-17 20:11] LABS: Glucose,Whole Blood 264 mg/dL (75-99)
[2020-12-17] MEDS: ATORVASTATIN 20 MG TAB PO SCH (20:25)
[2020-12-17 22:57] LABS: Glucose,Whole Blood 171 mg/dL (75-99)
[2020-12-17] MEDS: MELATONIN 3 MG TABLET PO PRN (23:49)
[2020-12-18] MEDS: ALBUTEROL HFA INHALER INHALATION SCH ×6 (00:40→19:33)
[2020-12-18 04:45] LABS: Basophils % (A) 0 %; Eosinophils % (A) 0 %; HCT 37.5 % (34.0-46.0); HGB 12.2 gm/dL (11.4-16.0); Lymphocytes # (A) 0.5 k/uL (1.0-4.8); Lymphocytes % (A) 4 %; MCH 30.7 pg (25.0-35.0); MCHC 32.7 g/dL (31.0-37.0); Monocytes # (A) 0.6 k/uL (0-1.0); Monocytes % (A) 5 %; Neutrophils # (A) 11.3 k/uL (1.3-7.7); Neutrophils % (A) 90 %; Platelet Count 286 k/uL (150-450); RBC 3.99 m/uL (3.80-5.40); RDW 15.6 % (11.5-15.5); WBC 12.6 k/uL (3.8-10.6)
[2020-12-18 05:06] LABS: Albumin 2.6 g/dL (3.5-5.0); C Reactive Protein 84.2 mg/L (<10.0); Calcium 6.5 mg/dL (8.4-10.2); Potassium 5.7 mmol/L (3.5-5.1); Total Bilirubin 0.8 mg/dL (0.2-1.3); Total Protein 5.4 g/dL (6.3-8.2)
[2020-12-18] MEDS: SODIUM CHLORIDE 0.9% 1,000 ML IV SCH ×2 (05:50→21:16)
[2020-12-18 06:03] LABS: Glucose,Whole Blood 168 mg/dL (75-99)
[2020-12-18] MEDS: INSULIN ASPART (NovoLOG) 100 UNIT/ML VIAL SQ SCH ×6 (06:09→21:30)
[2020-12-18] MEDS: GLIMEPIRIDE 1 MG TAB PO SCH (06:10)
[2020-12-18] MEDS: ONDANSETRON 4 MG/2 ML VIAL IVP PRN ×2 (06:58→18:32)
[2020-12-18] MEDS: ASCORBIC ACID 500 MG TAB PO SCH (09:18)
[2020-12-18] MEDS: CHOLECALCIFEROL 25 MCG (1000 IU) TABLET PO SCH (09:19)
[2020-12-18] MEDS: METOPROLOL TARTRATE 25 MG TAB PO SCH (09:19)
[2020-12-18] MEDS: dexAMETHasone 2 MG TAB PO SCH (09:20)
[2020-12-18] MEDS: PANTOPRAZOLE 40 MG/10 ML VIAL IV SCH (09:20)
[2020-12-18] MEDS: ENOXAPARIN 30 MG/0.3 ML SYRINGE SQ SCH (09:20)
[2020-12-18] MEDS: MONTELUKAST 10 MG TAB PO SCH (09:20)
[2020-12-18] MEDS: ZINC SULFATE 220 MG CAP PO SCH (09:21)
--- NOTE | 2020-12-18 11:19 | P.PN ---
Subjective Progress Note Date: 12/18/20 HISTORY OF PRESENT ILLNESS: 75-year-old female one of Dr. Thurston's patient with multiple medical problem known to have history of COPD, type 2 diabetes, hypertension, chronic kidney disease who apparently was exposed to Covid 19 from her daughter and granddaughter 5 days ago, patient was tested on Thursday was positive. Patient developed to have worsening dyspnea and shortness of breath cough productive Dr. phlegm along with tightness and wheezes with low-grade temperature and nausea and abdominal pain with generalized fatigue tiredness become debilitated not been able to ambulate and walk her symptoms become much worse ended up coming to the emergency department at [facility] on 12/15/2020 where was seen and evaluated her chest x-ray showed bilateral infiltrate, patient was hypoxic requiring high flow O2. Patient was started on steroid pulmonary consultation was obtained patient will be hospitalized with above problem. 12/17: Patient remains in the ICU, on nonrebreather with pulse ox running between 85 and 92%. Respiratory rate in the 20s to 30, heart rate in the 70s and 80s, afebrile, blood pressure 126/59. Repeat blood work reveals WBC 14.4, hemoglobin 12.2, count 291. D-dimer 2.48. Sodium 134 initially 6.4 this morning repeat 5.9. Chloride 105, CO2 23, BUN 55 and creatinine 1.53. Blood sugars running between 143 and 244. Ferritin 2825. AST 85, ALT 53. LDH 2007. CK 146. Repeat chest x-ray reveals progression with more confluent formation of bilateral airspace disease. Renal ultrasound reveals no hydronephrosis. A 1.1 cm cortical cyst in the right kidney. There may be underlying hepatic steatosis. Patient is followed by nephrology with plan to continue IV fluids at 75 mL per hour, patient of losartan and allopurinol. Strict I&O, bladder scan. 12/18: Patient states that she is feeling more comfortable today. She is on AirVo and NRB with pulse ox of 95%. She has been afebrile, heart rate 86, respiratory rate 26-34, blood pressure 105/45. Repeat blood work reveals WBC 12.6, hemoglobin 12.2, platelet count 286. Lymphocytes 0.5. Sodium 137, potassium 5.7, chloride 108, CO2 23, BUN 51 and creatinine 1.46. Blood sugars running between 148 and 264. Repeat chest x-ray has been done and report is pending. Patient is followed by nephrology and is status post 1 dose of IV Lasix yesterday as well as dextrose, insulin,. Patient received Tocilizumab x1 yesterday REVIEW OF SYSTEMS: Constitutional: Generalized fatigue, low-grade temperature, night sweats, weakness and lethargy and significant shortness of breath. EENT: No headache. No blurred vision or double vision, no loss of vision. No loss of Hearing, no ringing in the ears, no dizziness. No nasal drainage or congestion. No epistaxis. No sore throat. Lungs: Significant dyspnea and shortness of breath cough wheezes. Cardiovascular: No chest pain, no lower extremity edema. No palpitations. No paroxysmal nocturnal dyspnea. No orthopnea. No lightheadedness or dizziness. No syncopal episodes. Abdominal: No abdominal pain. No nausea, vomiting. No diarrhea. No constipation. No bloody or tarry stools.. No loss of appetite. Genitourinary: No dysuria, increased frequency, urgency. No urinary retention. Musculoskeletal: No myalgias. No muscle weakness, no gait dysfunction, no frequent falls. No back pain. No neck pain. Integumentary: No wounds, no lesions. No rash or pruritus. No unusual bruising. No change in hair or nails. Neurologic: No aphasia. No facial droop. No change in mentation. No head injury. No headache. No paralysis. No paresthesia. Psychiatric: No depression. No anxiety. No mood swings. Endocrine: Noted abnormal blood sugars. No weight change. PHYSICAL EXAMINATION: Gen: This is 75-year-old female iICU bed, she appears to be comfortable at rest. AirVo and nonrebreather in place. HEENT: Head is atraumatic, normocephalic. Pupils equal, round. Sclerae is a nicteric. NECK: Supple. No JVD. No lymphadenopathy. No thyromegaly. LUNGS: Decreased breath some bilateral rhonchi slight crackles in the bases more in the right than the left side mild expiratory wheezes. HEART: Regular rate and rhythm. No murmur. Mild tachycardia ABDOMEN: Soft. Bowel sounds are present. No masses. No tenderness.. Catheter draining clear ayesha urine. EXTREMITIES: No pedal edema. No calf tenderness. NEUROLOGICAL: Patient is awake, alert and oriented x3. Cranial nerves 2 through 12 are grossly intact. ASSESSMENT AND PLAN: 1. Acute hypoxic respiratory failure: Secondary to Covid 19 infection. Patient is currently on AirVo and nonrebreather, status post Tocilizumab x1, continue Dexamethasone 6 mg daily, Lovenox 30 mg subcu daily, supplements. Pulmonary medicine consult appreciated. 2. Acute Covid 19 pneumonitis. Continue in #1. 3. D-dimer elevation secondary to Covid 19. 4. Acute kidney injury with chronic kidney disease stage III: Her creatinine is much worse up to 2.98 with GFR only at 15, continue hydration , nephrology c onsult appreciated. 5. Severe hyponatremia, resolved: Most likely the effect of the Covid 19 causi ng mild SIADH. 6. Type 2 diabetes, uncontrolled with hyperglycemia. Continue glimepiride 0.5 mg with breakfast, NovoLog scale. 7. COPD with slight exacerbation with the Covid 19 infection and pneumonitis continue dexamethasone 6 mg a day, continue DuoNeb and Pulmicort. 8. Hypertension: Hold losartan, continue metoprolol 25 mg daily. 9. Hyperlipidemia: Continue patient on atorvastatin 20 mg daily.. 10. GI prophylaxis: Continue patient on pantoprazole 40 mg a day. 11. DVT prophylaxis: Continue Lovenox 40 mg subcutaneous daily. CODE STATUS: Full code. DISCHARGE PLAN To be determined. Impression and plan of care have been directed as dictated by the signing physician. Yecenia Mendosa nurse practitioner acting as scribe for signing physician. Objective - Vital Signs Vital signs: Vital Signs Temp 98.4 F 12/18/20 04:00 Pulse 91 12/18/20 10:00 Resp 26 H 12/18/20 10:00 BP 115/41 12/18/20 10:00 Pulse Ox 88 L 12/18/20 10:02 Intake & Output 12/17/20 12/18/20 12/18/20 18:59 06:59 18:59 Intake Total 925 900 910 Output Total 1340 855 295 Balance -415 45 615 Weight 79.5 kg Intake: IV 825 900 300 Sodium Chloride 0.9% 1, 825 900 300 000 ml @ 75 mls/hr IV . [id number] [facility] Rx#:[id number] Oral 100 610 Output: Urine 1340 855 295 Other: Voiding Method Indwelling Catheter Indwelling Catheter Indwelling Catheter # Voids 0 - Labs CBC & Chem 7: 12/18/20 03:23 12/18/20 03:23 Labs: Abnormal Lab Results - Last 24 Hours (Table) 12/17/20 12/17/20 12/17/20 Range/Units 04:27 10:16 10:20 WBC (3.8-10.6) k/uL RDW (11.5-15.5) % Neutrophils # (1.3-7.7) k/uL Lymphocytes # (1.0-4.8) k/uL Potassium 5.9 H (3.5-5.1) mmol/L Chloride (98-107) mmol/L BUN (7-17) mg/dL Creatinine (0.52-1.04) mg/dL Glucose (74-99) mg/dL POC Glucose (mg/dL) (75-99) mg/dL Calcium (8.4-10.2) mg/dL Ferritin 2825.0 H (10.0-291.0) ng/mL AST (14-36) U/L ALT (4-34) U/L Lactate Dehydrogenase (313-618) U/L C-Reactive Protein (<10.0) mg/L Total Protein (6.3-8.2) g/dL Albumin (3.5-5.0) g/dL Procalcitonin 0.19 H (0.02-0.09) ng/mL 12/17/20 12/17/20 12/17/20 Range/Units 11:23 16:37 18:01 WBC (3.8-10.6) k/uL RDW (11.5-15.5) % Neutrophils # (1.3-7.7) k/uL Lymphocytes # (1.0-4.8) k/uL Potassium 6.3 H* (3.5-5.1) mmol/L Chloride (98-107) mmol/L BUN (7-17) mg/dL Creatinine (0.52-1.04) mg/dL Glucose (74-99) mg/dL POC Glucose (mg/dL) 177 H 148 H (75-99) mg/dL Calcium (8.4-10.2) mg/dL Ferritin (10.0-291.0) ng/mL AST (14-36) U/L ALT (4-34) U/L Lactate Dehydrogenase (313-618) U/L C-Reactive Protein (<10.0) mg/L Total Protein (6.3-8.2) g/dL Albumin (3.5-5.0) g/dL Procalcitonin (0.02-0.09) ng/mL 12/17/20 12/17/20 12/18/20 Range/Units 20:09 22:56 03:23 WBC 12.6 H (3.8-10.6) k/uL RDW 15.6 H (11.5-15.5) % Neutrophils # 11.3 H (1.3-7.7) k/uL Lymphocytes # 0.5 L (1.0-4.8) k/uL Potassium (3.5-5.1) mmol/L Chloride (98-107) mmol/L BUN (7-17) mg/dL Creatinine (0.52-1.04) mg/dL Glucose (74-99) mg/dL POC Glucose (mg/dL) 264 H 171 H (75-99) mg/dL Calcium (8.4-10.2) mg/dL Ferritin (10.0-291.0) ng/mL AST (14-36) U/L ALT (4-34) U/L Lactate Dehydrogenase (313-618) U/L C-Reactive Protein (<10.0) mg/L Total Protein (6.3-8.2) g/dL Albumin (3.5-5.0) g/dL Procalcitonin (0.02-0.09) ng/mL 12/18/20 12/18/20 Range/Units 03:23 06:01 WBC (3.8-10.6) k/uL RDW (11.5-15.5) % Neutrophils # (1.3-7.7) k/uL Lymphocytes # (1.0-4.8) k/uL Potassium 5.7 H (3.5-5.1) mmol/L Chloride 108 H (98-107) mmol/L BUN 51 H (7-17) mg/dL Creatinine 1.46 H (0.52-1.04) mg/dL Glucose 148 H (74-99) mg/dL POC Glucose (mg/dL) 168 H (75-99) mg/dL Calcium 6.5 L (8.4-10.2) mg/dL Ferritin (10.0-291.0) ng/mL AST 79 H (14-36) U/L ALT 68 H (4-34) U/L Lactate Dehydrogenase 2092 H (313-618) U/L C-Reactive Protein 84.2 H (<10.0) mg/L Total Protein 5.4 L (6.3-8.2) g/dL Albumin 2.6 L (3.5-5.0) g/dL Procalcitonin (0.02-0.09) ng/mL Microbiology - Last 24 Hours (Table) 12/15/20 20:18 Blood Culture - Preliminary Blood No Growth after 48 hours 12/15/20 20:00 Blood Culture - Preliminary Blood No Growth after 48 hours
[2020-12-18 11:33] LABS: Glucose,Whole Blood 261 mg/dL (75-99)
[2020-12-18] MEDS ORDERED: INSULIN DETEMIR (LEVEMIR) 100 UNIT/ML SYR SQ STA (12:07)
[2020-12-18] MEDS ORDERED: INSULIN ASPART (NovoLOG) 100 UNIT/ML VIAL SQ ONE (12:15)
--- NOTE | 2020-12-18 12:43 | P.PN ---
Subjective Progress Note Date: 12/18/20 Principal diagnosis: hypoxemia, pneumonia This is a 75-year-old female primarily a patient Dr. Thurston, patient is known to have history of COPD, hypertension, type 2 diabetes, chronic kidney disease. Patient was recently exposed to her granddaughter and she tested positive for c ovid 19. Patient tested positive last Thursday. However she had symptoms now for almost 10 days symptoms are classic symptoms of Covid 19 pneumonia. Patient had cough, shortness of breath, fever, nausea vomiting, diarrhea, fatigue, aches and pains. Patient was seen in the emergency room on 12/15/2020, and her chest x- ray showed evidence of bilateral infiltrates. Patient was also noted to be hypo xic, and she required high flow oxygen and high FiO2. Patient is presently on a nonrebreather mask, 100% FiO2, and her O2 saturation is marginal. Patient was admitted to the ICU after I reviewed her chest x-ray and I reviewed her vitals, and I saw her on consultation in the ICU. Patient is now on a high flow cannula at 50 L in the ICU, and her O2 saturation 92%. Hemodynamically stable. And she had a temp of 98. CBC was relatively normal. Electrolytes showed elevated potassium of 5.7 BUN is 71 creatinine 2.32. LDH was 1760, lactic acid was 1.8. And her PCR for wan virus was positive. D-dimer was 1.87. On 12/17/2020 patient seen in follow-up in intensive care unit, patient was ad mitted on 12/15/2020 with Covid pneumonia and acute kidney injury, onset of symptoms was 90s prior to presentation. Transfer to the ICU on the same day on 12/15/2020, patient is on 15 L of oxygen and 100% nonrebreather, and his pulse ox is between 85-88%. Patient has been afebrile. Hemodynamically stable, 0.9 normal saline was seen infusing at 75 ML per hour. Awake and alert, appears to be in no acute distress. Patient refused convalescent plasma transfusion, she is awaiting possibly some rehab today she is expected to be available this morning. Remains on dexamethasone 6 mg daily, vitamins, and prophylactic anticoagulation in the form of Lovenox. Today's potassium was 6.4 and patient was given insulin and dextrose, nephrology is following and managing electrolytes. Today's chest x-ray shows progression with more confluent formation of bilateral airspace disease. On 12/18/2020 patient seen in follow-up in the intensive care unit, currently remains on 15 L per high flow nasal cannula, and her percent nonrebreather, and only satting 83-80%, she will be switched over to Airvo to improve her O2 saturations, she remains on Decadron 6 mg daily, she is on prophylactic dose Lovenox 30 mg daily, today's chest x-ray is pending. Today's labs have been reviewed, showing white blood cell count 12.6, hemoglobin 12.2, last d-dimer was yesterday, today is d-dimer is pending, sodium is 137, potassium is 5.7, B1 of 51, creatinine is 1.46. LDH is still elevated at 2091, and CRP is 84.2. Progesterone level was negative at 0.19. Patient did receive a dose of Actemra on 12/17/2020 Objective - Vital Signs Vital signs: Vital Signs Temp 98.4 F 12/18/20 04:00 Pulse 88 12/18/20 11:00 Resp 25 H 12/18/20 11:00 BP 131/71 12/18/20 11:00 Pulse Ox 88 L 12/18/20 11:31 Intake & Output 12/17/20 12/18/20 12/18/20 18:59 06:59 18:59 Intake Total 211 261 5153 Output Total 1340 855 370 Balance -415 45 690 Weight 79.5 kg Intake: IV 825 900 450 Sodium Chloride 0.9% 1, 825 900 450 000 ml @ 75 mls/hr IV . [id number] [facility] Rx#:[id number] Oral 100 610 Output: Urine 1340 855 370 Other: Voiding Method Indwelling Catheter Indwelling Catheter Indwelling Catheter # Voids 0 - Exam GENERAL EXAM: Alert, very pleasant 75-year-old white female, 15 liters of oxygen per high flow nasal cannula and 100 percent nonrebreather with a pulse ox of 88% comfortable in no apparent distress. HEAD: Normocephalic/atraumatic. EYES: Normal reaction of pupils, equal size. Conjunctiva pink, sclera white. NOSE: Clear with pink turbinates. THROAT: No erythema or exudates. NECK: No masses, no JVD, no thyroid enlargement, no adenopathy. CHEST: No chest wall deformity. Symmetrical expansion. LUNGS: Equal air entry with no crackles, wheeze, rhonchi or dullness. CVS: Regular rate and rhythm, normal S1 and S2, no gallops, no murmurs, no rubs ABDOMEN: Soft, nontender. No hepatosplenomegaly, normal bowel sounds, no gua rding or rigidity. EXTREMITIES: No clubbing, no edema, no cyanosis, 2+ pulses and upper and lower extremities. MUSCULOSKELETAL: Muscle strength and tone normal. SPINE: No scoliosis or deformity SKIN: No rashes CENTRAL NERVOUS SYSTEM: Alert and oriented -3. No focal deficits, tone is normal in all 4 extremities. PSYCHIATRIC: Alert and oriented -3. Appropriate affect. Intact judgment and insight. - Labs CBC & Chem 7: 12/18/20 03:23 12/18/20 03:23 Labs: Abnormal Lab Results - Last 24 Hours (Table) 12/17/20 12/17/20 12/17/20 Range/Units 10:20 16:37 18:01 WBC (3.8-10.6) k/uL RDW (11.5-15.5) % Neutrophils # (1.3-7.7) k/uL Lymphocytes # (1.0-4.8) k/uL Potassium 6.3 H* (3.5-5.1) mmol/L Chloride (98-107) mmol/L BUN (7-17) mg/dL Creatinine (0.52-1.04) mg/dL Glucose (74-99) mg/dL POC Glucose (mg/dL) 148 H (75-99) mg/dL Calcium (8.4-10.2) mg/dL AST (14-36) U/L ALT (4-34) U/L Lactate Dehydrogenase (313-618) U/L C-Reactive Protein (<10.0) mg/L Total Protein (6.3-8.2) g/dL Albumin (3.5-5.0) g/dL Procalcitonin 0.19 H (0.02-0.09) ng/mL 12/17/20 12/17/20 12/18/20 Range/Units 20:09 22:56 03:23 WBC 12.6 H (3.8-10.6) k/uL RDW 15.6 H (11.5-15.5) % Neutrophils # 11.3 H (1.3-7.7) k/uL Lymphocytes # 0.5 L (1.0-4.8) k/uL Potassium (3.5-5.1) mmol/L Chloride (98-107) mmol/L BUN (7-17) mg/dL Creatinine (0.52-1.04) mg/dL Glucose (74-99) mg/dL POC Glucose (mg/dL) 264 H 171 H (75-99) mg/dL Calcium (8.4-10.2) mg/dL AST (14-36) U/L ALT (4-34) U/L Lactate Dehydrogenase (313-618) U/L C-Reactive Protein (<10.0) mg/L Total Protein (6.3-8.2) g/dL Albumin (3.5-5.0) g/dL Procalcitonin (0.02-0.09) ng/mL 12/18/20 12/18/20 12/18/20 Range/Units 03:23 06:01 11:32 WBC (3.8-10.6) k/uL RDW (11.5-15.5) % Neutrophils # (1.3-7.7) k/uL Lymphocytes # (1.0-4.8) k/uL Potassium 5.7 H (3.5-5.1) mmol/L Chloride 108 H (98-107) mmol/L BUN 51 H (7-17) mg/dL Creatinine 1.46 H (0.52-1.04) mg/dL Glucose 148 H (74-99) mg/dL POC Glucose (mg/dL) 168 H 261 H (75-99) mg/dL Calcium 6.5 L (8.4-10.2) mg/dL AST 79 H (14-36) U/L ALT 68 H (4-34) U/L Lactate Dehydrogenase 2092 H (313-618) U/L C-Reactive Protein 84.2 H (<10.0) mg/L Total Protein 5.4 L (6.3-8.2) g/dL Albumin 2.6 L (3.5-5.0) g/dL Procalcitonin (0.02-0.09) ng/mL Microbiology - Last 24 Hours (Table) 12/15/20 20:18 Blood Culture - Preliminary Blood No Growth after 48 hours 12/15/20 20:00 Blood Culture - Preliminary Blood No Growth after 48 hours Assessment and Plan Plan: Assessment: #1. Acute hypoxic respiratory failure secondary to acute coronary 19 pneumonitis, S/P Tocilizumab on 12/17/2020, refused convalescent plasma #2. Acute on chronic kidney disease, likely related to hypovolemia #3. Hypovolemic hyponatremia on presentation improvement with hydration #4. Acute hyperkalemia secondary to acute on chronic kidney disease #5. Elevated inflammatory markers #6. Type 2 diabetes mellitus #7. Benign essential hypertension #8. Dyslipidemia #9. History of underlying COPD Plan: We will obtain follow-up d-dimer today, continue with current dose of Lovenox, inflammatory markers continue to be elevated, we'll obtain a follow-up inflammatory markers, chest x-ray is pending. Patient still requiring high flow oxygen at 15 L and on percent nonrebreather, she'll be switched over to Airvo to maintain O2 saturations between 80-90%. May try BiPAP support if she becomes fatigued, patient has refused convalescent plasma, she did receive a dose of Actemra. Overall prognosis is guarded, will continue to closely monitor in the ICU. I performed a history & physical examination of the patient and discussed their management with my nurse practitioner, Monique Phelan. I reviewed the nurse practitioner's note and agree with the documented findings and plan of care. Lung sounds are positive for diminished breath sounds. The findings and the impression was discussed with the patient. I attest to the documentation by the nurse practitioner. Time with Patient: Greater than 30
[2020-12-18 13:20] LABS: Ferritin 3137.8 ng/mL (10.0-291.0)
--- NOTE | 2020-12-18 16:04 | PN ---
PROGRESS NOTE Patient is seen for followup for acute kidney injury and hyperkalemia. Her potassium has improved although still staying on the higher side. Creatinine is slightly better at 1.4 from 1.53 yesterday. Urine output is maintained at about 50-100 mL an hour. Case is discussed with nursing staff. The patient is not examined due to COVID pneumonia. Her blood pressure was 108/42, heart rate 87 per minute. Oxygen requirements still maintained on high-flow nasal cannula, which appears to be stable. Patient is afebrile. No significant edema as of yesterday. [employer] exam is intact. LABS: Labs show sodium 137, potassium 5.7, chloride 108, CO2 is 23, BUN 51, creatinine 1.46. ASSESSMENT: 1. Acute kidney injury, acute tubular necrosis, nonoliguric, currently improving. 2. Hyperkalemia associated with acute kidney injury and blood sugars staying on the high side. Patient was also maintained on angiotensin receptor blockers prior to admission. 3. COVID pneumonia. PLAN: Repeat potassium later this evening. Control blood sugars and continue with IV fluids for now. MMODL / IJN: [id number] /
[2020-12-18 17:20] LABS: Glucose,Whole Blood 136 mg/dL (75-99)
[2020-12-18] MEDS: ATORVASTATIN 20 MG TAB PO SCH (21:16)
[2020-12-18] MEDS: MELATONIN 3 MG TABLET PO PRN (21:16)
[2020-12-18 21:22] LABS: Glucose,Whole Blood 160 mg/dL (75-99)
[2020-12-19] MEDS ORDERED: ZOLPIDEM 5 MG TAB PO ONE (00:08)
[2020-12-19] MEDS: ALBUTEROL HFA INHALER INHALATION SCH ×7 (01:28→23:57)
[2020-12-19 05:55] LABS: Glucose,Whole Blood 134 mg/dL (75-99)
[2020-12-19 06:02] LABS: Basophils % (A) 0 %; C Reactive Protein 44.1 mg/L (<10.0); Calcium 6.9 mg/dL (8.4-10.2); Eosinophils % (A) 0 %; HCT 34.2 % (34.0-46.0); HGB 11.5 gm/dL (11.4-16.0); Lymphocytes # (A) 0.5 k/uL (1.0-4.8); Lymphocytes % (A) 3 %; MCH 31.6 pg (25.0-35.0); MCHC 33.6 g/dL (31.0-37.0); Mean Platelet Volume 7.9; Monocytes # (A) 0.9 k/uL (0-1.0); Monocytes % (A) 5 %; Neutrophils % (A) 91 %; Platelet Count 283 k/uL (150-450); RBC 3.64 m/uL (3.80-5.40); RDW 15.5 % (11.5-15.5); WBC 18.6 k/uL (3.8-10.6)
[2020-12-19] MEDS: GLIMEPIRIDE 1 MG TAB PO SCH (06:36)
[2020-12-19] MEDS: INSULIN ASPART (NovoLOG) 100 UNIT/ML VIAL SQ SCH ×7 (06:36→20:17)
[2020-12-19] MEDS ORDERED: INSULIN DETEMIR (LEVEMIR) 100 UNIT/ML SYR SQ SCH (07:00)
[2020-12-19] MEDS: ENOXAPARIN 30 MG/0.3 ML SYRINGE SQ SCH (08:37)
[2020-12-19] MEDS: ZINC SULFATE 220 MG CAP PO SCH (08:37)
[2020-12-19] MEDS: CHOLECALCIFEROL 25 MCG (1000 IU) TABLET PO SCH (08:37)
[2020-12-19] MEDS: PANTOPRAZOLE 40 MG/10 ML VIAL IV SCH (08:37)
[2020-12-19] MEDS: METOPROLOL TARTRATE 25 MG TAB PO SCH (08:38)
[2020-12-19] MEDS: MONTELUKAST 10 MG TAB PO SCH (08:38)
[2020-12-19] MEDS: ASCORBIC ACID 500 MG TAB PO SCH (08:38)
[2020-12-19] MEDS: dexAMETHasone 2 MG TAB PO SCH (08:38)
--- NOTE | 2020-12-19 08:38 | XR ---
EXAMINATION TYPE: XR chest 1V portable DATE OF EXAM: 12/19/2020 HISTORY: Shortness of breath. COMPARISON: 12/18/20 TECHNIQUE: Single view of the chest is submitted. FINDINGS: Demonstrated are scattered senescent parenchymal change. Diffuse interstitial and airspace infiltrates noted with interval progression suggested. The heart is stable. Hilar and mediastinal structures are within normal limits. Degenerative changes are seen of the dorsal spine. IMPRESSION: 1. Diffuse interstitial and airspace infiltrates noted with interval progression suggested.
[2020-12-19 11:40] LABS: Glucose,Whole Blood 150 mg/dL (75-99)
[2020-12-19] MEDS: SODIUM CHLORIDE 0.9% 1,000 ML IV SCH (12:35)
--- NOTE | 2020-12-19 13:59 | P.PN ---
Subjective Progress Note Date: 12/19/20 HISTORY OF PRESENT ILLNESS: 75-year-old female one of Dr. Thurston's patient with multiple medical problem known to have history of COPD, type 2 diabetes, hypertension, chronic kidney disease who apparently was exposed to Covid 19 from her daughter and granddaughter 5 days ago, patient was tested on Thursday was positive. Patient developed to have worsening dyspnea and shortness of breath cough productive Dr. phlegm along with tightness and wheezes with low-grade temperature and nausea and abdominal pain with generalized fatigue tiredness become debilitated not been able to ambulate and walk her symptoms become much worse ended up coming to the emergency department at [facility] on 12/15/2020 where was seen and evaluated her chest x-ray showed bilateral infiltrate, patient was hypoxic requiring high flow O2. Patient was started on steroid pulmonary consultation was obtained patient will be hospitalized with above problem. 12/17: Patient remains in the ICU, on nonrebreather with pulse ox running between 85 and 92%. Respiratory rate in the 20s to 30, heart rate in the 70s and 80s, afebrile, blood pressure 126/59. Repeat blood work reveals WBC 14.4, hemoglobin 12.2, count 291. D-dimer 2.48. Sodium 134 initially 6.4 this morning repeat 5.9. Chloride 105, CO2 23, BUN 55 and creatinine 1.53. Blood sugars running between 143 and 244. Ferritin 2825. AST 85, ALT 53. LDH 2007. CK 146. Repeat chest x-ray reveals progression with more confluent formation of bilateral airspace disease. Renal ultrasound reveals no hydronephrosis. A 1.1 cm cortical cyst in the right kidney. There may be underlying hepatic steatosis. Patient is followed by nephrology with plan to continue IV fluids at 75 mL per hour, patient of losartan and allopurinol. Strict I&O, bladder scan. 12/18: Patient states that she is feeling more comfortable today. She is on AirVo and NRB with pulse ox of 95%. She has been afebrile, heart rate 86, respiratory rate 26-34, blood pressure 105/45. Repeat blood work reveals WBC 12.6, hemoglobin 12.2, platelet count 286. Lymphocytes 0.5. Sodium 137, potassium 5.7, chloride 108, CO2 23, BUN 51 and creatinine 1.46. Blood sugars running between 148 and 264. Repeat chest x-ray has been done and report is pending. Patient is followed by nephrology and is status post 1 dose of IV Lasix yesterday as well as dextrose, insulin,. Patient received Tocilizumab x1 yesterday 12/19: Patient's pulse ox readings have worsened and she has been on Airvo and NRB with pulse ox in the mid 80s and down to 79. Patient was placed on BiPAP. Patient is really not able to communicate at this time with pulse ox dropping with only speaking a few words. She has been afebrile, heart rate 80, blood pressure 147/67, pulse ox 74% on BiPAP. Repeat blood work reveals WBC 18.6, hemoglobin 11.5, platelet count 283. D-dimer 13.81. BUN 44 and creatinine 1.15. Blood sugars running between 100 3460. LDH 2013. C-reactive protein 44.1. REVIEW OF SYSTEMS: Constitutional: Generalized fatigue, low-grade temperature, night sweats, weakness and lethargy and significant shortness of breath. EENT: No headache. No blurred vision or double vision, no loss of vision. No loss of Hearing, no ringing in the ears, no dizziness. No nasal drainage or congestion. No epistaxis. No sore throat. Lungs: Significant dyspnea and shortness of breath cough wheezes. Cardiovascular: No chest pain, no lower extremity edema. No palpitations. No paroxysmal nocturnal dyspnea. No orthopnea. No lightheadedness or dizziness. No syncopal episodes. Abdominal: No abdominal pain. No nausea, vomiting. No diarrhea. No constipation. No bloody or tarry stools.. No loss of appetite. Genitourinary: No dysuria, increased frequency, urgency. No urinary retention. Musculoskeletal: No myalgias. No muscle weakness, no gait dysfunction, no frequent falls. No back pain. No neck pain. Integumentary: No wounds, no lesions. No rash or pruritus. No unusual bruising. No change in hair or nails. Neurologic: No aphasia. No facial droop. No change in mentation. No head injury. No headache. No paralysis. No paresthesia. Psychiatric: No depression. No anxiety. No mood swings. Endocrine: Noted abnormal blood sugars. No weight change. PHYSICAL EXAMINATION: Gen: This is 75-year-old female iICU bed, she appears to be comfortable at rest. AirVo and nonrebreather in place. HEENT: Head is atraumatic, normocephalic. Pupils equal, round. Sclerae is anicteric. NECK: Supple. No JVD. No lymphadenopathy. No thyromegaly. LUNGS: Decreased breath some bilateral rhonchi slight crackles in the bases more in the right than the left side mild expiratory wheezes. HEART: Regular rate and rhythm. No murmur. Mild tachycardia ABDOMEN: Soft. Bowel sounds are present. No masses. No tenderness.. Catheter draining clear ayesha urine. EXTREMITIES: No pedal edema. No calf tenderness. NEUROLOGICAL: Patient is awake, alert and oriented x3. Cranial nerves 2 through 12 are grossly intact. ASSESSMENT AND PLAN: 1. Acute hypoxic respiratory failure: Secondary to Covid 19 infection. Patient is currently on BiPAP. Patient is currently on AirVo and nonrebreather, status post Tocilizumab x1, continue Dexamethasone 6 mg daily, Lovenox 30 mg subcu daily, supplements. Pulmonary medicine consult appreciated. 2. Acute Covid 19 pneumonitis. Continue in #1. 3. D-dimer elevation secondary to Covid 19. 4. Acute kidney injury with chronic kidney disease stage III: Her creatinine is much worse up to 2.98 with GFR only at 15, continue hydration , nephrology consult appreciated. 5. Severe hyponatremia, resolved: Most likely the effect of the Covid 19 causing mild SIADH. 6. Type 2 diabetes, uncontrolled with hyperglycemia. Continue glimepiride 0.5 mg with breakfast, NovoLog scale. 7. COPD with slight exacerbation with the Covid 19 infection and pneumonitis continue dexamethasone 6 mg a day, continue DuoNeb and Pulmicort. 8. Hypertension: Hold losartan, continue metoprolol 25 mg daily. 9. Hyperlipidemia: Continue patient on atorvastatin 20 mg daily.. 10. GI prophylaxis: Continue patient on pantoprazole 40 mg a day. 11. DVT prophylaxis: Continue Lovenox 40 mg subcutaneous daily. CODE STATUS: Full code. Prognosis guarded. DISCHARGE PLAN To be determined. Impression and plan of care have been directed as dictated by the signing physician. Yecenia Mendosa nurse practitioner acting as scribe for signing physician. Objective - Vital Signs Vital signs: Vital Signs Temp 97.6 F 12/19/20 08:00 Pulse 65 04/07/21 08:00 Resp 31 H 12/19/20 08:00 BP 117/47 12/19/20 08:00 Pulse Ox 86 L 12/19/20 08:06 Intake & Output 12/18/20 12/19/20 12/19/20 18:59 06:59 18:59 Intake Total 2075 1215 375 Output Total 730 750 160 Balance 1345 465 215 Weight 81.5 kg Intake: IV 975 975 225 Sodium Chloride 0.9% 1, 975 975 225 000 ml @ 75 mls/hr IV . [id number] [facility] Rx#:[id number] Oral 1100 240 150 Output: Urine 730 750 160 Other: Voiding Method Indwelling Catheter Indwelling Catheter Indwelling Catheter # Voids 0 - Labs CBC & Chem 7: 12/19/20 05:04 12/19/20 05:04 Labs: Abnormal Lab Results - Last 24 Hours (Table) 12/18/20 12/18/20 12/18/20 Range/Units 03:23 11:32 12:54 WBC (3.8-10.6) k/uL RBC (3.80-5.40) m/uL Neutrophils # (1.3-7.7) k/uL Lymphocytes # (1.0-4.8) k/uL D-Dimer 6.56 H (<0.60) mg/L FEU Chloride (98-107) mmol/L BUN (7-17) mg/dL Creatinine (0.52-1.04) mg/dL Glucose (74-99) mg/dL POC Glucose (mg/dL) 261 H (75-99) mg/dL Calcium (8.4-10.2) mg/dL Ferritin 3137.8 H (10.0-291.0) ng/mL Lactate Dehydrogenase (313-618) U/L C-Reactive Protein (<10.0) mg/L 12/18/20 12/18/20 12/19/20 Range/Units 17:08 21:20 05:04 WBC (3.8-10.6) k/uL RBC (3.80-5.40) m/uL Neutrophils # (1.3-7.7) k/uL Lymphocytes # (1.0-4.8) k/uL D-Dimer 13.81 H (<0.60) mg/L FEU Chloride (98-107) mmol/L BUN (7-17) mg/dL Creatinine (0.52-1.04) mg/dL Glucose (74-99) mg/dL POC Glucose (mg/dL) 136 H 160 H (75-99) mg/dL Calcium (8.4-10.2) mg/dL Ferritin (10.0-291.0) ng/mL Lactate Dehydrogenase (313-618) U/L C-Reactive Protein (<10.0) mg/L 12/19/20 12/19/20 12/19/20 Range/Units 05:04 05:04 05:54 WBC 18.6 H (3.8-10.6) k/uL RBC 3.64 L (3.80-5.40) m/uL Neutrophils # 17.0 H (1.3-7.7) k/uL Lymphocytes # 0.5 L (1.0-4.8) k/uL D-Dimer (<0.60) mg/L FEU Chloride 109 H (98-107) mmol/L BUN 44 H (7-17) mg/dL Creatinine 1.15 H (0.52-1.04) mg/dL Glucose 146 H (74-99) mg/dL POC Glucose (mg/dL) 134 H (75-99) mg/dL Calcium 6.9 L (8.4-10.2) mg/dL Ferritin (10.0-291.0) ng/mL Lactate Dehydrogenase 2013 H (313-618) U/L C-Reactive Protein 44.1 H (<10.0) mg/L Microbiology - Last 24 Hours (Table) 12/15/20 20:18 Blood Culture - Preliminary Blood No Growth after 72 hours 12/15/20 20:00 Blood Culture - Preliminary Blood No Growth after 72 hours
--- NOTE | 2020-12-19 14:16 | P.PN ---
Subjective Progress Note Date: 12/19/20 Principal diagnosis: Acute hypoxemic respiratory failure. This is a 75-year-old female primarily a patient Dr. Thurston, patient is known to have history of COPD, hypertension, type 2 diabetes, chronic kidney disease. Patient was recently exposed to her granddaughter and she tested positive for covid 19. Patient tested positive last Thursday. However she had symptoms now for almost 10 days symptoms are classic symptoms of Covid 19 pneumonia. Patient had cough, shortness of breath, fever, nausea vomiting, diarrhea, fatigue, aches and pains. Patient was seen in the emergency room on 12/15/2020, and her chest x- ray showed evidence of bilateral infiltrates. Patient was also noted to be hypoxic, and she required high flow oxygen and high FiO2. Patient is presently on a nonrebreather mask, 100% FiO2, and her O2 saturation is marginal. Patient was admitted to the ICU after I reviewed her chest x-ray and I reviewed her vitals, and I saw her on consultation in the ICU. Patient is now on a high flow cannula at 50 L in the ICU, and her O2 saturation 92%. Hemodynamically stable. And she had a temp of 98. CBC was relatively normal. Electrolytes showed elevated potassium of 5.7 BUN is 71 creatinine 2.32. LDH was 1760, lactic acid was 1.8. And her PCR for wan virus was positive. D-dimer was 1.87. On 12/17/2020 patient seen in follow-up in intensive care unit, patient was admitted on 12/15/2020 with Covid pneumonia and acute kidney injury, onset of symptoms was 90s prior to presentation. Transfer to the ICU on the same day on 12/15/2020, patient is on 15 L of oxygen and 100% nonrebreather, and his pulse ox is between 85-88%. Patient has been afebrile. Hemodynamically stable, 0.9 normal saline was seen infusing at 75 ML per hour. Awake and alert, appears to be in no acute distress. Patient refused convalescent plasma transfusion, she is awaiting possibly some rehab today she is expected to be available this morning. Remains on dexamethasone 6 mg daily, vitamins, and prophylactic anticoagulation in the form of Lovenox. Today's potassium was 6.4 and patient was given insulin and dextrose, nephrology is following and managing electrolytes. Today's chest x-ray shows progression with more confluent formation of bilateral airspace disease. On 12/18/2020 patient seen in follow-up in the intensive care unit, currently remains on 15 L per high flow nasal cannula, and her percent nonrebreather, and only satting 83-80%, she will be switched over to Airvo to improve her O2 saturations, she remains on Decadron 6 mg daily, she is on prophylactic dose Lovenox 30 mg daily, today's chest x-ray is pending. Today's labs have been reviewed, showing white blood cell count 12.6, hemoglobin 12.2, last d-dimer was yesterday, today is d-dimer is pending, sodium is 137, potassium is 5.7, B1 of 51, creatinine is 1.46. LDH is still elevated at 2091, and CRP is 84.2. Progesterone level was negative at 0.19. Patient did receive a dose of Actemra on 12/17/2020 Progress note dated 12/19/2020. This is a 75-year-old female with a history of COPD, hypertension, diabetes, and chronic kidney disease. She is again seen here in the intensive care unit, room 266. She remains on AIRVO, at 60 L/m, and an estimated FiO2 of 92%. On top of that, she is wearing a nonrebreather mask. She is getting saline at 75 mL an hour. With that, saturations are in the mid to high. White count 18.6, he will let 0.5, hematocrit 34.2, and platelet count 283,000. D-dimer 13.81. Sodium and potassium are normal. Chloride 109, CO2 25, anion gap 4, BUN 44, creatinine 1.15. C-reactive protein is 44.1 and LDH is 2013. Chest x-ray shows persistent bilateral infiltrates, which may have progressed. Objective - Vital Signs Vital signs: Vital Signs Temp 97.7 F 12/19/20 12:00 Pulse 63 12/19/20 12:00 Resp 27 H 12/19/20 12:00 BP 164/78 12/19/20 12:00 Pulse Ox 82 L 12/19/20 12:00 Intake & Output 12/18/20 12/19/20 12/19/20 18:59 06:59 18:59 Intake Total 2075 1215 675 Output Total 730 750 385 Balance 1345 465 290 Weight 81.5 kg Intake: IV 975 975 525 Sodium Chloride 0.9% 1, 975 975 525 000 ml @ 75 mls/hr IV . [id number] [facility] Rx#:[id number] Oral 1100 240 150 Output: Urine 730 750 385 Other: Voiding Method Indwelling Catheter Indwelling Catheter Indwelling Catheter # Voids 0 - Exam Saturations are mid to high 80s. The patient does have some conversational dyspnea, and use of accessory muscles. HEENT examination is grossly unremarkable. Neck supple. Full range of motion. No adenopathy thyromegaly or neck vein distention. Cardiovascular examination reveals regular rhythm rate. S1-S2 normal. No S3 or S4. No discernible murmur noted. Heart rate 63 bpm. Lungs reveal diffuse bilateral rhonchi, and bilateral crackles. No wheezes. Breath sounds equal. Abdomen soft bowel sounds are heard. No masses or tenderness. Extremities are intact. No cyanosis clubbing or edema. Skin is without rash or lesion. Neurologic examination is brief but nonfocal. - Labs CBC & Chem 7: 12/19/20 05:04 12/19/20 05:04 Labs: Abnormal Lab Results - Last 24 Hours (Table) 12/18/20 12/18/20 12/19/20 Range/Units 17:08 21:20 05:04 WBC (3.8-10.6) k/uL RBC (3.80-5.40) m/uL Neutrophils # (1.3-7.7) k/uL Lymphocytes # (1.0-4.8) k/uL D-Dimer 13.81 H (<0.60) mg/L FEU Chloride (98-107) mmol/L BUN (7-17) mg/dL Creatinine (0.52-1.04) mg/dL Glucose (74-99) mg/dL POC Glucose (mg/dL) 136 H 160 H (75-99) mg/dL Calcium (8.4-10.2) mg/dL Lactate Dehydrogenase (313-618) U/L C-Reactive Protein (<10.0) mg/L 12/19/20 12/19/20 12/19/20 Range/Units 05:04 05:04 05:54 WBC 18.6 H (3.8-10.6) k/uL RBC 3.64 L (3.80-5.40) m/uL Neutrophils # 17.0 H (1.3-7.7) k/uL Lymphocytes # 0.5 L (1.0-4.8) k/uL D-Dimer (<0.60) mg/L FEU Chloride 109 H (98-107) mmol/L BUN 44 H (7-17) mg/dL Creatinine 1.15 H (0.52-1.04) mg/dL Glucose 146 H (74-99) mg/dL POC Glucose (mg/dL) 134 H (75-99) mg/dL Calcium 6.9 L (8.4-10.2) mg/dL Lactate Dehydrogenase 2013 H (313-618) U/L C-Reactive Protein 44.1 H (<10.0) mg/L 12/19/20 Range/Units 11:39 WBC (3.8-10.6) k/uL RBC (3.80-5.40) m/uL Neutrophils # (1.3-7.7) k/uL Lymphocytes # (1.0-4.8) k/uL D-Dimer (<0.60) mg/L FEU Chloride (98-107) mmol/L BUN (7-17) mg/dL Creatinine (0.52-1.04) mg/dL Glucose (74-99) mg/dL POC Glucose (mg/dL) 150 H (75-99) mg/dL Calcium (8.4-10.2) mg/dL Lactate Dehydrogenase (313-618) U/L C-Reactive Protein (<10.0) mg/L Microbiology - Last 24 Hours (Table) 12/15/20 20:18 Blood Culture - Preliminary Blood No Growth after 72 hours 12/15/20 20:00 Blood Culture - Preliminary Blood No Growth after 72 hours Assessment and Plan Assessment: #1. Acute hypoxic respiratory failure secondary to acute coronary 19 pneumonitis, S/P Tocilizumab on 12/17/2020, refused convalescent plasma #2. Acute on chronic kidney disease, likely related to hypovolemia #3. Hypovolemic hyponatremia on presentation improvement with hydration #4. Acute hyperkalemia secondary to acute on chronic kidney disease #5. Elevated inflammatory markers #6. Type 2 diabetes mellitus #7. Benign essential hypertension #8. Dyslipidemia #9. History of underlying COPD Plan: Plan dated 12/19/2020. Currently, the patient's overall condition is quite tenuous. In the end, she may require intubation and mechanical ventilation. We'll continue to monitor her closely. X-ray does show some progression of disease. Labs are reviewed. Medications are reviewed. The patient is currently on vitamins, and Lovenox. Additional recommendations and suggestions are forthcoming. The patient did refuse convalescent plasma. She did receive a dose of TOCI. Time with Patient: Greater than 30
[2020-12-19] MEDS ORDERED: FUROSEMIDE 10 MG/ML 2 ML VIAL IV ONE (15:44)
[2020-12-19 17:59] LABS: Glucose,Whole Blood 148 mg/dL (75-99)
--- NOTE | 2020-12-19 19:25 | PN ---
PROGRESS NOTE The patient is seen for followup for acute kidney injury associated with underlying COVID pneumonia. The patient's renal function has improved. She was hyperkalemic. Potassium has improved as well. Creatinine is down to 1.1 from 2.98 on initial admission and potassium is down to about 5 from 6.4 at peak. The patient has had good urine output. She is currently maintained on steroids. She is getting IV fluids as well at 75 mL an hour. PHYSICAL EXAMINATION: On examination today, patient is awake. She is short of breath. Complaining of cough as well. Blood pressure 164/78, heart rate 63 per minute. Heart and lungs are not examined. Examination of lower extremity shows trace edema. S[employer]IOR [employer] PRESIDENT AND [employer] INFORMATION OFFICER exam grossly intact. LABS: Show sodium 138, potassium 5.0, chloride 109, BUN 44, creatinine 1.15, hemoglobin 11.5 g/dL. ASSESSMENT: 1. Acute kidney injury associated with acute tubular necrosis associated with underlying COVID pneumonia and hypotension. I will discontinue the IV fluids. 2. Hyperkalemia associated with acute kidney injury, use of angiotensin receptor blockers, now improved. 3. COVID-19 pneumonia. 4. Chronic kidney disease stage 3. Baseline creatinine previously around 1.5. PLAN: Discontinue IV fluids. I will add a 1 time dose of Lasix as well today. MMODL / IJN: [id number] /
[2020-12-19 20:13] LABS: Glucose,Whole Blood 133 mg/dL (75-99)
[2020-12-19] MEDS: ATORVASTATIN 20 MG TAB PO SCH (20:18)
[2020-12-19] MEDS: ENOXAPARIN 40 MG/0.4 ML SYRINGE SQ SCH (20:18)
[2020-12-19] MEDS: MELATONIN 3 MG TABLET PO PRN (20:18)
[2020-12-20] MEDS: ALBUTEROL HFA INHALER INHALATION SCH ×5 (03:45→20:53)
[2020-12-20] MEDS: HYDROcodone/APAP 5-325MG 1 EACH TAB PO PRN ×2 (04:04→15:27)
[2020-12-20 05:00] LABS: Basophils % (A) 0 %; Eosinophils % (A) 0 %; HCT 35.3 % (34.0-46.0); HGB 11.8 gm/dL (11.4-16.0); Lymphocytes # (A) 0.5 k/uL (1.0-4.8); Lymphocytes % (A) 3 %; MCH 31.3 pg (25.0-35.0); MCHC 33.4 g/dL (31.0-37.0); MCV 93.6 fL (80.0-100.0); Mean Platelet Volume 8.1; Monocytes # (A) 0.6 k/uL (0-1.0); Monocytes % (A) 3 %; Neutrophils # (A) 16.9 k/uL (1.3-7.7); Neutrophils % (A) 93 %; Platelet Count 220 k/uL (150-450); RBC 3.77 m/uL (3.80-5.40); RDW 15.5 % (11.5-15.5); WBC 18.3 k/uL (3.8-10.6)
[2020-12-20 05:09] LABS: Albumin 2.8 g/dL (3.5-5.0); C Reactive Protein 26.3 mg/L (<10.0); Calcium 7.4 mg/dL (8.4-10.2); Potassium 5.1 mmol/L (3.5-5.1); Total Protein 5.6 g/dL (6.3-8.2)
[2020-12-20 08:35] LABS: Glucose,Whole Blood 119 mg/dL (75-99)
[2020-12-20] MEDS: ENOXAPARIN 40 MG/0.4 ML SYRINGE SQ SCH ×2 (08:38→20:40)
[2020-12-20] MEDS: PANTOPRAZOLE 40 MG/10 ML VIAL IV SCH (08:38)
[2020-12-20] MEDS: ZINC SULFATE 220 MG CAP PO SCH (08:38)
[2020-12-20] MEDS: CHOLECALCIFEROL 25 MCG (1000 IU) TABLET PO SCH (08:38)
[2020-12-20] MEDS: MONTELUKAST 10 MG TAB PO SCH (08:39)
[2020-12-20] MEDS: dexAMETHasone 2 MG TAB PO SCH (08:39)
[2020-12-20] MEDS: ASCORBIC ACID 500 MG TAB PO SCH (08:39)
[2020-12-20] MEDS: METOPROLOL TARTRATE 25 MG TAB PO SCH (08:39)
[2020-12-20] MEDS ORDERED: INSULIN DETEMIR (LEVEMIR) 100 UNIT/ML SYR SQ PRN (11:11)
--- NOTE | 2020-12-20 11:32 | P.PN ---
Subjective Progress Note Date: 12/20/20 Principal diagnosis: Acute hypoxemic respiratory failure. This is a 75-year-old female primarily a patient Dr. Thurston, patient is known to have history of COPD, hypertension, type 2 diabetes, chronic kidney disease. Patient was recently exposed to her granddaughter and she tested positive for covid 19. Patient tested positive last Thursday. However she had symptoms now for almost 10 days symptoms are classic symptoms of Covid 19 pneumonia. Patient had cough, shortness of breath, fever, nausea vomiting, diarrhea, fatigue, aches and pains. Patient was seen in the emergency room on 12/15/2020, and her chest x- ray showed evidence of bilateral infiltrates. Patient was also noted to be hypoxic, and she required high flow oxygen and high FiO2. Patient is presently on a nonrebreather mask, 100% FiO2, and her O2 saturation is marginal. Patient was admitted to the ICU after I reviewed her chest x-ray and I reviewed her vitals, and I saw her on consultation in the ICU. Patient is now on a high flow cannula at 50 L in the ICU, and her O2 saturation 92%. Hemodynamically stable. And she had a temp of 98. CBC was relatively normal. Electrolytes showed elevated potassium of 5.7 BUN is 71 creatinine 2.32. LDH was 1760, lactic acid was 1.8. And her PCR for wan virus was positive. D-dimer was 1.87. On 12/17/2020 patient seen in follow-up in intensive care unit, patient was admitted on 12/15/2020 with Covid pneumonia and acute kidney injury, onset of symptoms was 90s prior to presentation. Transfer to the ICU on the same day on 12/15/2020, patient is on 15 L of oxygen and 100% nonrebreather, and his pulse ox is between 85-88%. Patient has been afebrile. Hemodynamically stable, 0.9 normal saline was seen infusing at 75 ML per hour. Awake and alert, appears to be in no acute distress. Patient refused convalescent plasma transfusion, she is awaiting possibly some rehab today she is expected to be available this morning. Remains on dexamethasone 6 mg daily, vitamins, and prophylactic anticoagulation in the form of Lovenox. Today's potassium was 6.4 and patient was given insulin and dextrose, nephrology is following and managing electrolytes. Today's chest x-ray shows progression with more confluent formation of bilateral airspace disease. On 12/18/2020 patient seen in follow-up in the intensive care unit, currently remains on 15 L per high flow nasal cannula, and her percent nonrebreather, and only satting 83-80%, she will be switched over to Airvo to improve her O2 saturations, she remains on Decadron 6 mg daily, she is on prophylactic dose Lovenox 30 mg daily, today's chest x-ray is pending. Today's labs have been reviewed, showing white blood cell count 12.6, hemoglobin 12.2, last d-dimer was yesterday, today is d-dimer is pending, sodium is 137, potassium is 5.7, B1 of 51, creatinine is 1.46. LDH is still elevated at 2091, and CRP is 84.2. Progesterone level was negative at 0.19. Patient did receive a dose of Actemra on 12/17/2020 Progress note dated 12/19/2020. This is a 75-year-old female with a history of COPD, hypertension, diabetes, and chronic kidney disease. She is again seen here in the intensive care unit, room 266. She remains on AIRVO, at 60 L/m, and an estimated FiO2 of 92%. On top of that, she is wearing a nonrebreather mask. She is getting saline at 75 mL an hour. With that, saturations are in the mid to high. White count 18.6, he will let 0.5, hematocrit 34.2, and platelet count 283,000. D-dimer 13.81. Sodium and potassium are normal. Chloride 109, CO2 25, anion gap 4, BUN 44, creatinine 1.15. C-reactive protein is 44.1 and LDH is 2013. Chest x-ray shows persistent bilateral infiltrates, which may have progressed. Progress note dated 12/20/2020. 75-year-old female, who is again seen in the intensive care unit, room 266. She remains on BiPAP, 25/02, with an FiO2 100%. She's getting saline at 75 and hour. She could not tolerate the AIRVO. We are going to place a PICC line in her, for TPN. The patient is doing about the same. While on BiPAP, her saturations are in the low 90s. White count 18.3, hemoglobin, hematocrit, and platelet count normal. D-dimer greater than 34.10. Sodium 138, potassium 5.1, chlorides 107, CO2 27, anion gap 4, BUN 47, and creatinine 1.18. LDH is 2437. C- reactive protein is 26.3. There was no chest x-ray today. Objective - Vital Signs Vital signs: Vital Signs Temp 98.1 F 12/20/20 08:00 Pulse 66 12/20/20 11:00 Resp 20 12/20/20 11:00 BP 151/71 12/20/20 11:00 Pulse Ox 86 L 12/20/20 11:00 Intake & Output 12/19/20 12/20/20 12/20/20 18:59 06:59 18:59 Intake Total 1275 825 375 Output Total 1010 1310 350 Balance 265 -485 25 Weight 81.7 kg Intake: IV 1050 825 375 Sodium Chloride 0.9% 1, 1050 825 375 000 ml @ 75 mls/hr IV . [id number] [facility] Rx#:[id number] Oral 225 Output: Urine 1010 1310 350 Other: Voiding Method Indwelling Catheter Indwelling Catheter Indwelling Catheter # Voids 0 - Exam Saturations are in the low 90s on BiPAP. The patient does have some conversational dyspnea, and use of accessory muscles. HEENT examination is grossly unremarkable. Neck supple. Full range of motion. No adenopathy thyromegaly or neck vein distention. Cardiovascular examination reveals regular rhythm rate. S1-S2 normal. No S3 or S4. No discernible murmur noted. Heart rate 66 bpm. Lungs reveal diffuse bilateral rhonchi, and bilateral crackles. No wheezes. Breath sounds equal. Her examination is unchanged. Abdomen soft bowel sounds are heard. No masses or tenderness. Extremities are intact. No cyanosis clubbing or edema. Skin is without rash or lesion. Neurologic examination is brief but nonfocal. - Labs CBC & Chem 7: 12/20/20 03:39 12/20/20 03:39 Labs: Abnormal Lab Results - Last 24 Hours (Table) 12/19/20 12/19/20 12/19/20 Range/Units 11:39 17:58 20:12 WBC (3.8-10.6) k/uL RBC (3.80-5.40) m/uL Neutrophils # (1.3-7.7) k/uL Lymphocytes # (1.0-4.8) k/uL D-Dimer (<0.60) mg/L FEU BUN (7-17) mg/dL Creatinine (0.52-1.04) mg/dL Glucose (74-99) mg/dL POC Glucose (mg/dL) 150 H 148 H 133 H (75-99) mg/dL Calcium (8.4-10.2) mg/dL AST (14-36) U/L ALT (4-34) U/L Alkaline Phosphatase (38-126) U/L Lactate Dehydrogenase (313-618) U/L C-Reactive Protein (<10.0) mg/L Total Protein (6.3-8.2) g/dL Albumin (3.5-5.0) g/dL 12/20/20 12/20/20 12/20/20 Range/Units 03:39 03:39 03:39 WBC 18.3 H (3.8-10.6) k/uL RBC 3.77 L (3.80-5.40) m/uL Neutrophils # 16.9 H (1.3-7.7) k/uL Lymphocytes # 0.5 L (1.0-4.8) k/uL D-Dimer >34.10 H (<0.60) mg/L FEU BUN 47 H (7-17) mg/dL Creatinine 1.18 H (0.52-1.04) mg/dL Glucose 145 H (74-99) mg/dL POC Glucose (mg/dL) (75-99) mg/dL Calcium 7.4 L (8.4-10.2) mg/dL AST 67 H (14-36) U/L ALT 80 H (4-34) U/L Alkaline Phosphatase 169 H (38-126) U/L Lactate Dehydrogenase 2437 H (313-618) U/L C-Reactive Protein 26.3 H (<10.0) mg/L Total Protein 5.6 L (6.3-8.2) g/dL Albumin 2.8 L (3.5-5.0) g/dL 12/20/20 Range/Units 08:33 WBC (3.8-10.6) k/uL RBC (3.80-5.40) m/uL Neutrophils # (1.3-7.7) k/uL Lymphocytes # (1.0-4.8) k/uL D-Dimer (<0.60) mg/L FEU BUN (7-17) mg/dL Creatinine (0.52-1.04) mg/dL Glucose (74-99) mg/dL POC Glucose (mg/dL) 119 H (75-99) mg/dL Calcium (8.4-10.2) mg/dL AST (14-36) U/L ALT (4-34) U/L Alkaline Phosphatase (38-126) U/L Lactate Dehydrogenase (313-618) U/L C-Reactive Protein (<10.0) mg/L Total Protein (6.3-8.2) g/dL Albumin (3.5-5.0) g/dL Microbiology - Last 24 Hours (Table) 12/15/20 20:18 Blood Culture - Preliminary Blood No Growth after 96 hours 12/15/20 20:00 Blood Culture - Preliminary Blood No Growth after 96 hours Assessment and Plan Assessment: #1. Acute hypoxic respiratory failure secondary to acute COVID 19 pneumonitis, S/P Tocilizumab on 12/17/2020, refused convalescent plasma #2. Acute on chronic kidney disease, likely related to hypovolemia #3. Hypovolemic hyponatremia on presentation improvement with hydration #4. Acute hyperkalemia secondary to acute on chronic kidney disease #5. Elevated inflammatory markers #6. Type 2 diabetes mellitus #7. Benign essential hypertension #8. Dyslipidemia #9. History of underlying COPD Plan: Plan dated 12/19/2020. Currently, the patient's overall condition is quite tenuous. In the end, she may require intubation and mechanical ventilation. We'll continue to monitor her closely. X-ray does show some progression of disease. Labs are reviewed. Medications are reviewed. The patient is currently on vitamins, and Lovenox. A dditional recommendations and suggestions are forthcoming. The patient did refuse convalescent plasma. She did receive a dose of TOCI. Plan dated 12/20/2020. The patient was placed back on BiPAP. She seemed to do better on that. A PICC line will be placed for TPN. Additional recommendations and suggestions are forthcoming. The patient did refuse convalescent plasma, but did get TOCI. We will continue to follow make recommendations were appropriate. Prognosis is guarded. The patient may end up on mechanical ventilator. Time with Patient: Greater than 30
[2020-12-20] MEDS: INSULIN ASPART (NovoLOG) 100 UNIT/ML VIAL SQ SCH ×3 (11:52→19:08)
--- NOTE | 2020-12-20 11:56 | P.PN ---
Subjective Progress Note Date: 12/20/20 HISTORY OF PRESENT ILLNESS: 75-year-old female one of Dr. Thurston's patient with multiple medical problem known to have history of COPD, type 2 diabetes, hypertension, chronic kidney disease who apparently was exposed to Covid 19 from her daughter and granddaughter 5 days ago, patient was tested on Thursday was positive. Patient developed to have worsening dyspnea and shortness of breath cough productive Dr. phlegm along with tightness and wheezes with low-grade temperature and nausea and abdominal pain with generalized fatigue tiredness become debilitated not been able to ambulate and walk her symptoms become much worse ended up coming to the emergency department at [facility] on 12/15/2020 where was seen and evaluated her chest x-ray showed bilateral infiltrate, patient was hypoxic requiring high flow O2. Patient was started on steroid pulmonary consultation was obtained patient will be hospitalized with above problem. 12/17: Patient remains in the ICU, on nonrebreather with pulse ox running between 85 and 92%. Respiratory rate in the 20s to 30, heart rate in the 70s and 80s, afebrile, blood pressure 126/59. Repeat blood work reveals WBC 14.4, hemoglobin 12.2, count 291. D-dimer 2.48. Sodium 134 initially 6.4 this morning repeat 5.9. Chloride 105, CO2 23, BUN 55 and creatinine 1.53. Blood sugars running between 143 and 244. Ferritin 2825. AST 85, ALT 53. LDH 2007. CK 146. Repeat chest x-ray reveals progression with more confluent formation of bilateral airspace disease. Renal ultrasound reveals no hydronephrosis. A 1.1 cm cortical cyst in the right kidney. There may be underlying hepatic steatosis. Patient is followed by nephrology with plan to continue IV fluids at 75 mL per hour, patient of losartan and allopurinol. Strict I&O, bladder scan. 12/18: Patient states that she is feeling more comfortable today. She is on AirVo and NRB with pulse ox of 95%. She has been afebrile, heart rate 86, respiratory rate 26-34, blood pressure 105/45. Repeat blood work reveals WBC 12.6, hemoglobin 12.2, platelet count 286. Lymphocytes 0.5. Sodium 137, potassium 5.7, chloride 108, CO2 23, BUN 51 and creatinine 1.46. Blood sugars running between 148 and 264. Repeat chest x-ray has been done and report is pending. Patient is followed by nephrology and is status post 1 dose of IV Lasix yesterday as well as dextrose, insulin,. Patient received Tocilizumab x1 yesterday 12/19: Patient's pulse ox readings have worsened and she has been on Airvo and NRB with pulse ox in the mid 80s and down to 79. Patient was placed on BiPAP. Patient is really not able to communicate at this time with pulse ox dropping with only speaking a few words. She has been afebrile, heart rate 80, blood pressure 147/67, pulse ox 74% on BiPAP. Repeat blood work reveals WBC 18.6, hemoglobin 11.5, platelet count 283. D-dimer 13.81. BUN 44 and creatinine 1.15. Blood sugars running between 100 3460. LDH 2013. C-reactive protein 44.1. 12/20: She remains in the intensive care unit currently on BiPAP pulse oxing 86% on 100% FiO2 with noted increased fatigue. Patient may require intubation. TPN is to be started today. She's been afebrile, heart rate in the 60s, blood pressure 151/71. WBC 18.3, hemoglobin 11.8, platelet count 220. D-dimer greater than 34.1. Electrolytes normal. BUN 47 creatinine 1.18. Blood sugars running between 119 and 145. AST 67, a ALT 80, alkaline phosphatase 169. LDH 2437. CK 52. C-reactive protein 26.3. REVIEW OF SYSTEMS: Constitutional: Generalized fatigue, low-grade temperature, night sweats, increased fatigue, weakness and lethargy and significant shortness of breath. EENT: No headache. No blurred vision or double vision, no loss of vision. No loss of Hearing, no ringing in the ears, no dizziness. No nasal drainage or congestion. No epistaxis. No sore throat. Lungs: Significant worsening dyspnea and shortness of breath cough wheezes. Cardiovascular: No chest pain, no lower extremity edema. No palpitations. No paroxysmal nocturnal dyspnea. No orthopnea. No lightheadedness or dizziness. No syncopal episodes. Abdominal: No abdominal pain. No nausea, vomiting. No diarrhea. No constipation. No bloody or tarry stools.. No loss of appetite. Genitourinary: No dysuria, increased frequency, urgency. No urinary retention. Musculoskeletal: No myalgias. No muscle weakness, no gait dysfunction, no frequent falls. No back pain. No neck pain. Integumentary: No wounds, no lesions. No rash or pruritus. No unusual bruising. No change in hair or nails. Neurologic: No aphasia. No facial droop. No change in mentation. No head injury. No headache. No paralysis. No paresthesia. Psychiatric: No depression. No anxiety. No mood swings. Endocrine: Noted abnormal blood sugars. No weight change. PHYSICAL EXAMINATION: Gen: This is 75-year-old female iICU bed, she appears to be mild to moderate respiratory distress. HEENT: Head is atraumatic, normocephalic. Pupils equal, round. Sclerae is anicteric. NECK: Supple. No JVD. No lymphadenopathy. No thyromegaly. LUNGS: Decreased breath some bilateral rhonchi slight crackles in the bases more in the right than the left side mild expiratory wheezes. HEART: Regular rate and rhythm. No murmur. ABDOMEN: Soft. Bowel sounds are present. No masses. No tenderness. Catheter draining clear ayehsa urine. EXTREMITIES: No pedal edema. No calf tenderness. NEUROLOGICAL: Patient is awake, alert and oriented x3. Cranial nerves 2 through 12 are grossly intact. ASSESSMENT AND PLAN: 1. Acute hypoxic respiratory failure: Secondary to Covid 19 infection. Patient is currently on BiPAP. Patient is currently on AirVo and nonrebreather, status post Tocilizumab x1, continue Dexamethasone 6 mg daily, Lovenox 40 mg subcu twice daily, supplements. Pulmonary medicine consult appreciated. Lasix 20 mg IV 1 per nephrology. 2. Acute Covid 19 pneumonitis. Continue in #1. 3. D-dimer elevation secondary to Covid 19. 4. Acute kidney injury with chronic kidney disease stage III: nephrology consult appreciated. 5. Severe hyponatremia, resolved: Most likely the effect of the Covid 19 causing mild SIADH. 6. Type 2 diabetes, uncontrolled with hyperglycemia. Continue Levemir 5 units daily, NovoLog scale. 7. COPD with slight exacerbation with the Covid 19 infection and pneumonitis continue dexamethasone 6 mg a day, continue albuterol inhaler. 8. Hypertension: Hold losartan, continue metoprolol 25 mg daily. 9. Hyperlipidemia: Continue patient on atorvastatin 20 mg daily. 10. GI prophylaxis: Continue patient on pantoprazole 40 mg a day. 11. DVT prophylaxis: Continue Lovenox 40 mg subcutaneous twice daily. CODE STATUS: Full code. Prognosis guarded. DISCHARGE PLAN To be determined. Impression and plan of care have been directed as dictated by the signing physician. Yecenia Mendosa nurse practitioner acting as scribe for signing physician. Objective - Vital Signs Vital signs: Vital Signs Temp 98.1 F 12/20/20 08:00 Pulse 84 12/20/20 09:00 Resp 35 H 12/20/20 09:00 BP 148/68 12/20/20 09:00 Pulse Ox 82 L 12/20/20 09:00 Intake & Output 12/19/20 12/20/20 12/20/20 18:59 06:59 18:59 Intake Total 1275 825 225 Output Total 1010 1310 240 Balance 265 -485 -15 Weight 81.7 kg Intake: IV 1050 825 225 Sodium Chloride 0.9% 1, 1050 825 225 000 ml @ 75 mls/hr IV . [id number] [facility] Rx#:[id number] Oral 225 Output: Urine 1010 1310 240 Other: Voiding Method Indwelling Catheter Indwelling Catheter Indwelling Catheter # Voids 0 - Labs CBC & Chem 7: 12/20/20 03:39 12/20/20 03:39 Labs: Abnormal Lab Results - Last 24 Hours (Table) 12/19/20 12/19/20 12/19/20 Range/Units 11:39 17:58 20:12 WBC (3.8-10.6) k/uL RBC (3.80-5.40) m/uL Neutrophils # (1.3-7.7) k/uL Lymphocytes # (1.0-4.8) k/uL D-Dimer (<0.60) mg/L FEU BUN (7-17) mg/dL Creatinine (0.52-1.04) mg/dL Glucose (74-99) mg/dL POC Glucose (mg/dL) 150 H 148 H 133 H (75-99) mg/dL Calcium (8.4-10.2) mg/dL AST (14-36) U/L ALT (4-34) U/L Alkaline Phosphatase (38-126) U/L Lactate Dehydrogenase (313-618) U/L C-Reactive Protein (<10.0) mg/L Total Protein (6.3-8.2) g/dL Albumin (3.5-5.0) g/dL 12/20/20 12/20/20 12/20/20 Range/Units 03:39 03:39 03:39 WBC 18.3 H (3.8-10.6) k/uL RBC 3.77 L (3.80-5.40) m/uL Neutrophils # 16.9 H (1.3-7.7) k/uL Lymphocytes # 0.5 L (1.0-4.8) k/uL D-Dimer >34.10 H (<0.60) mg/L FEU BUN 47 H (7-17) mg/dL Creatinine 1.18 H (0.52-1.04) mg/dL Glucose 145 H (74-99) mg/dL POC Glucose (mg/dL) (75-99) mg/dL Calcium 7.4 L (8.4-10.2) mg/dL AST 67 H (14-36) U/L ALT 80 H (4-34) U/L Alkaline Phosphatase 169 H (38-126) U/L Lactate Dehydrogenase 2437 H (313-618) U/L C-Reactive Protein 26.3 H (<10.0) mg/L Total Protein 5.6 L (6.3-8.2) g/dL Albumin 2.8 L (3.5-5.0) g/dL 12/20/20 Range/Units 08:33 WBC (3.8-10.6) k/uL RBC (3.80-5.40) m/uL Neutrophils # (1.3-7.7) k/uL Lymphocytes # (1.0-4.8) k/uL D-Dimer (<0.60) mg/L FEU BUN (7-17) mg/dL Creatinine (0.52-1.04) mg/dL Glucose (74-99) mg/dL POC Glucose (mg/dL) 119 H (75-99) mg/dL Calcium (8.4-10.2) mg/dL AST (14-36) U/L ALT (4-34) U/L Alkaline Phosphatase (38-126) U/L Lactate Dehydrogenase (313-618) U/L C-Reactive Protein (<10.0) mg/L Total Protein (6.3-8.2) g/dL Albumin (3.5-5.0) g/dL Microbiology - Last 24 Hours (Table) 12/15/20 20:18 Blood Culture - Preliminary Blood No Growth after 96 hours 12/15/20 20:00 Blood Culture - Preliminary Blood No Growth after 96 hours
[2020-12-20 12:15] LABS: Phosphorus 3.4 mg/dL (2.5-4.5)
[2020-12-20 12:26] LABS: Glucose,Whole Blood 155 mg/dL (75-99)
[2020-12-20] MEDS ORDERED: LIDOCAINE 1% INJ 10MG/ML (20 ML MDV) ONE (12:47)
[2020-12-20] MEDS ORDERED: LIDOCAINE 1% INJ 10MG/ML (20 ML MDV) SQ ONE (13:20)
--- NOTE | 2020-12-20 13:42 | IR ---
PICC LINE PLACEMENT: HISTORY: TPN PROCEDURE: Ultrasound guidance of PICC line placement. GUT SORTER: Dr. Sue. COMPLICATIONS: None ANESTHESIA: 1. 1% Lidocaine locally. FINDINGS/TECHNIQUE: The procedure was explained to the patient. The risks, complications, benefits and alternatives were discussed and any questions were answered. Informed consent was obtained. The patient was placed supine on the fluoroscopic table and prepped and draped in the usual sterile fash ion. Utilizing a 21 gauge needle and sonographic guidance, access in the left brachial vein was ach ieved and there is placement of a 0.018 guidewire. The vein is patent. A 5-F. sheath was placed ove r the guidewire. The guidewire and dilator were removed and a 5-F. Double lumen PICC line was placed through the sheath with the chest x-ray confirming the tip at the level of the SVC. The sheath was removed, the catheter was flushed and sutured into position. The patient was stable throughout the p rocedure and remained stable upon discharge from the Department of Radiology. The vein puncture was patent under ultrasound. A canela scale image was obtained to document patency of the vein punctured. All elements of the maximal barrier technique were utilized. IMPRESSION: 1. Successful PICC line placement under ultrasound performed bedside within the ICU.
--- NOTE | 2020-12-20 13:47 | XR ---
EXAMINATION TYPE: XR chest 1V portable DATE OF EXAM: 12/18/2020 COMPARISON: 12/17/2020 HISTORY: Shortness of breath TECHNIQUE: Single frontal view of the chest is obtained. FINDINGS: Case is presented to me on 12/20/2020. Diffuse airspace disease is stable. Biapical pleural thickening. Heart size stable. No pneumothorax. Biapical pleural thickening. Tiny bilateral effusions .. IMPRESSION: A diffuse bilateral infiltrate stable.
--- NOTE | 2020-12-20 13:54 | XR ---
EXAMINATION TYPE: XR chest 1V confirm line [facility] DATE OF EXAM: 12/20/2020 COMPARISON: 12/19/2020 HISTORY: PICC line placement TECHNIQUE: Single frontal view of the chest is obtained. FINDINGS: Diffuse bilateral interstitial infiltrates are stable. Portion of the right lung not inclu ded on exam. PICC line seen with the tip overlying the right atrium. Heart enlarged. No pneumothorax or pleural effusion. IMPRESSION: 1. PICC line appears to tip overlying the right atrium 2. Diffuse bilateral airspace disease stable
[2020-12-20] MEDS ORDERED: [UNRECOGNIZED DRUG - REMARK] IV SCH ×7 (15:00)
[2020-12-20] MEDS ORDERED: HYDROmorphone 1 MG/ML 1 ML SYRINGE ONE (15:53)
[2020-12-20 16:13] LABS: ABG Base Excess -0.7 mmol/L; ABG HCO3 26 mmol/L (21-25); ABG PCO2 56 mmHg (35-45); ABG PH 7.28 (7.35-7.45); ABG TCO2 28 mmol/L (19-24); Allen Test Performed? Yes
[2020-12-20 16:14] LABS: ABG PO2 45 mmHg (83-108)
[2020-12-20] MEDS ORDERED: propofoL 100 ML IV ONE (16:27)
[2020-12-20] MEDS ORDERED: PROPOFOL 10 MG/ML 20 ML VIAL IV ONE (16:30)
[2020-12-20] MEDS ORDERED: ROCURONIUM 10 MG/ML (5 ML VIAL) IV ONE (16:30)
[2020-12-20] MEDS ORDERED: CHLORHEXIDINE GLUCONATE 15 ML CUP MUCOUS MEM ONE (16:31)
--- NOTE | 2020-12-20 17:09 | PN ---
PROGRESS NOTE Patient is seen for followup for acute kidney injury. Renal function has been improving. However, patient's respiratory status has worsened. She was maintained on BiPAP, which patient had refused earlier. Case is discussed with nursing staff. Blood pressure was 158/71, heart rate 67 per minute. She is afebrile. Patient has been following commands. She is not eating much. She has had good urine output. Currently maintained on IV fluids. Patient will be started on TPN. Labs are reviewed. Sodium 138, potassium 5.1, chloride 107, BUN 47, creatinine 1.18. ASSESSMENT: 1. Acute kidney injury, currently significantly improved, mostly acute tubular necrosis, nonoliguric secondary to underlying COVID infection and inflammatory response, also secondary to hypotension. 2. Hyperkalemia associated with acute kidney injury, use of angiotensin receptor blockers, now improved. 3. COVID-19 pneumonia. 4. Chronic kidney disease, stage 3. Previous creatinine around 1.5. PLAN: Discontinue IV fluids when TPN is started. Monitor electrolytes. MMODL / IJN: [id number] /
--- NOTE | 2020-12-20 17:33 | XR ---
EXAMINATION TYPE: XR chest 1V portable DATE OF EXAM: 12/20/2020 COMPARISON: Earlier same day. HISTORY: Line placement. TECHNIQUE: Single frontal view of the chest is obtained. FINDINGS: There is interval placement of endotracheal tube terminating 2.6 cm above the tamica. Ther e is a nasogastric tube coursing below the diaphragm with distal portion overlying the stomach, howev er tip not included in the field of view. The left PICC remains in place. There is interval decrease of interstitial opacities in the right lung. There is persistent moderate bilateral interstitial opac ities in the mid to lower lungs. No pleural effusion, or pneumothorax seen. The cardiac silhouette s ize is within normal limits. The osseous structures are intact. IMPRESSION: Status post support apparatus placement as above. Decreased interstitial opacities, with persistent moderate residual.
[2020-12-20 17:52] LABS: ABG Base Excess -1.7 mmol/L; ABG HCO3 26 mmol/L (21-25); ABG Oxygen Saturation 62.2 % (94-97); ABG PCO2 63 mmHg (35-45); ABG PH 7.22 (7.35-7.45); ABG TCO2 28 mmol/L (19-24); Allen Test Performed? Yes
[2020-12-20 17:54] LABS: ABG PO2 39 mmHg (83-108)
[2020-12-20] MEDS ORDERED: CISATRACURIUM 2 MG/ML 5 ML VIAL IV ONE (18:04)
[2020-12-20 18:21] LABS: Glucose,Whole Blood 227 mg/dL (75-99)
[2020-12-20] MEDS: CISATRACURIUM 200 MG in SODIUM CHLORIDE 0.9% 180 ML IV SCH (18:24)
[2020-12-20] MEDS ORDERED: SODIUM CHLORIDE 0.9% 2,000 ML IV ONE ×2 (18:58→18:59)
[2020-12-20] MEDS: ATORVASTATIN 20 MG TAB PO SCH (20:40)
[2020-12-20] MEDS: ARTIFICIAL TEARS-HYPROMELLOSE DROPS 15 ML BTL BOTH EYES SCH (20:41)
[2020-12-20] MEDS: CHLORHEXIDINE GLUCONATE 15 ML CUP MUCOUS MEM SCH (20:41)
[2020-12-20] MEDS: NOREPINEPHRINE 8 MG in SODIUM CHLORIDE 0.9% 250 ML IV SCH (21:02)
[2020-12-20 21:08] LABS: ABG Base Excess -4.4 mmol/L; ABG HCO3 23 mmol/L (21-25); ABG Oxygen Saturation 78.9 % (94-97); ABG PCO2 56 mmHg (35-45); ABG PH 7.23 (7.35-7.45); ABG TCO2 25 mmol/L (19-24); Allen Test Performed? Yes
[2020-12-20 21:10] LABS: ABG PO2 50 mmHg (83-108)
[2020-12-21 00:13] LABS: Glucose,Whole Blood 203 mg/dL (75-99)
[2020-12-21] MEDS: INSULIN ASPART (NovoLOG) 100 UNIT/ML VIAL SQ SCH ×4 (00:29→16:20)
[2020-12-21] MEDS: ARTIFICIAL TEARS-HYPROMELLOSE DROPS 15 ML BTL BOTH EYES SCH ×6 (00:30→21:20)
[2020-12-21] MEDS: ALBUTEROL HFA INHALER INHALATION SCH ×6 (00:36→20:56)
[2020-12-21 04:38] LABS: ABG Base Excess -5.4 mmol/L; ABG HCO3 23 mmol/L (21-25); ABG Oxygen Saturation 93.5 % (94-97); ABG PCO2 62 mmHg (35-45); ABG PO2 81 mmHg (83-108); ABG TCO2 25 mmol/L (19-24); Allen Test Performed? Yes
[2020-12-21 06:27] LABS: Glucose,Whole Blood 180 mg/dL (75-99)
--- NOTE | 2020-12-21 08:08 | XR ---
EXAMINATION TYPE: XR chest 1V portable DATE OF EXAM: 12/21/2020 Comparison: 12/20/2020 Clinical History: 75-year-old female Tube placement Findings: ET tube tip is satisfactory. NG tube courses below the diaphragm. Left tip cavoatrial junction. Heart normal size. Bilateral mid and lower lung consolidation, slightly increased on the right and backgro und diffuse interstitial opacities. No pleural effusion. Impression: Interstitial infiltrates as well as mid and lower lung consolidation, increasing on the right now.
[2020-12-21 08:11] LABS: Ionized Calcium 3.7 mg/dL (4.5-5.3)
[2020-12-21 08:13] LABS: Anisocytosis Slight; HCT 33.2 % (34.0-46.0); Hypochromasia Marked; Macrocytosis Slight; Mean Platelet Volume 9.5; Platelet Count 244 k/uL (150-450); RBC 3.37 m/uL (3.80-5.40); RDW 16.2 % (11.5-15.5); WBC 30.7 k/uL (3.8-10.6)
[2020-12-21 08:22] LABS: MCH 30.4 pg (25.0-35.0); MCHC 29.7 g/dL (31.0-37.0)
[2020-12-21 08:23] LABS: HGB 10.1 gm/dL (11.4-16.0); MCV 98.6 fL (80.0-100.0)
[2020-12-21] MEDS: dexAMETHasone 2 MG TAB PO SCH (08:56)
[2020-12-21] MEDS: ZINC SULFATE 220 MG CAP PO SCH (08:56)
[2020-12-21] MEDS: CHOLECALCIFEROL 25 MCG (1000 IU) TABLET PO SCH (08:56)
[2020-12-21] MEDS: MONTELUKAST 10 MG TAB PO SCH (08:56)
[2020-12-21] MEDS: ASCORBIC ACID 500 MG TAB PO SCH (08:56)
[2020-12-21] MEDS: PANTOPRAZOLE 40 MG/10 ML VIAL IV SCH (08:56)
[2020-12-21] MEDS: CHLORHEXIDINE GLUCONATE 15 ML CUP MUCOUS MEM SCH ×2 (08:57→21:19)
[2020-12-21] MEDS: ENOXAPARIN 40 MG/0.4 ML SYRINGE SQ SCH ×2 (08:57→21:20)
[2020-12-21] MEDS: SODIUM CHLORIDE 0.9% 1,000 ML IV SCH (08:57)
[2020-12-21] MEDS: METOPROLOL TARTRATE 25 MG TAB PO SCH (08:58)
[2020-12-21] MEDS ORDERED: FAT EMULSION 20% 250 ML in EMPTY BAG 1 BAG IV SCH (09:00)
[2020-12-21 09:06] LABS: Potassium 6.5 mmol/L (3.5-5.1)
[2020-12-21 09:08] LABS: Calcium 6.2 mg/dL (8.4-10.2)
[2020-12-21 09:09] LABS: Magnesium 1.8 mg/dL (1.6-2.3); Phosphorus 4.2 mg/dL (2.5-4.5)
[2020-12-21] MEDS ORDERED: CALCIUM GLUCONATE 1 GM in SODIUM CHLORIDE 0.9% 100 ML IVPB ONE ×2 (09:30→20:42)
--- NOTE | 2020-12-21 10:09 | PCN ---
PROCEDURE NOTE PROCEDURE: Right femoral arterial line. OPERATORS: Dr. Corcoran and Dr. Silva PREOPERATIVE DIAGNOSIS: Frequent blood draws and blood gas monitoring. POSTOPERATIVE DIAGNOSIS: Frequent blood draws and blood gas monitoring. ARTERIAL LINE PLACEMENT: Indications: Hemodynamic monitoring. A time-out was completed verifying correct patient, procedure, site, positioning, and implant(s) or special equipment if applicable. Steve's test was performed to ensure adequate perfusion. The patient's right groin was prepped and draped in sterile fashion. 1% Lidocaine was used to anesthetize the area. An 18G Arrow arterial line was introduced into the right femoral artery. The catheter was threaded over the guide wire and the needle was removed with appropriate pulsatile blood return. Blood loss was minimal. The catheter was then sutured in place to the skin and a sterile dressing applied. Perfusion to the extremity distal to the point of catheter insertion was checked and found to be adequate. The patient tolerated the procedure well and there were no complications. There was no immediate complication. There was good blood return and waveform. The patient tolerated the procedure well. The catheter was sutured in place. Sterile dressing applied by the nurse. There was no immediate complication. MMODL / IJN: [id number] /
[2020-12-21 10:10] LABS: Albumin 2.5 g/dL (3.5-5.0); Calcium 6.7 mg/dL (8.4-10.2); Magnesium 1.9 mg/dL (1.6-2.3); Potassium 5.6 mmol/L (3.5-5.1); Total Bilirubin 0.7 mg/dL (0.2-1.3); Total Protein 5.1 g/dL (6.3-8.2)
[2020-12-21 10:16] VITALS: BMI 36.8
[2020-12-21 11:56] LABS: Glucose,Whole Blood 133 mg/dL (75-99)
[2020-12-21 11:57] LABS: Band Neutrophils % 32 %; Lymphocytes # (M) 0.31 k/uL (1.0-4.8); Metamyelocytes # (M) 0.61 k/uL (0); Metamyelocytes % 2 %; Monocytes # (M) 0.61 k/uL (0-1.0); Myelocytes # (M) 0.31 k/uL (0); Myelocytes % 1 %; Neutrophils % (M) 64 %; Nucleated Red Blood Cells 0 /100 WBC (0-0); Total Cells Counted 200
[2020-12-21 11:58] LABS: Poikilocytosis (M) Present; Toxic Granulation Present; Toxic Vacuolation Present
--- NOTE | 2020-12-21 12:06 | P.PN ---
Subjective Progress Note Date: 12/21/20 Principal diagnosis: Acute hypoxemic respiratory failure. This is a 75-year-old female primarily a patient Dr. Thurston, patient is known to have history of COPD, hypertension, type 2 diabetes, chronic kidney disease. Patient was recently exposed to her granddaughter and she tested positive for covid 19. Patient tested positive last Thursday. However she had symptoms now for almost 10 days symptoms are classic symptoms of Covid 19 pneumonia. Patient had cough, shortness of breath, fever, nausea vomiting, diarrhea, fatigue, aches and pains. Patient was seen in the emergency room on 12/15/2020, and her chest x- ray showed evidence of bilateral infiltrates. Patient was also noted to be hypoxic, and she required high flow oxygen and high FiO2. Patient is presently on a nonrebreather mask, 100% FiO2, and her O2 saturation is marginal. Patient was admitted to the ICU after I reviewed her chest x-ray and I reviewed her vitals, and I saw her on consultation in the ICU. Patient is now on a high flow cannula at 50 L in the ICU, and her O2 saturation 92%. Hemodynamically stable. And she had a temp of 98. CBC was relatively normal. Electrolytes showed elevated potassium of 5.7 BUN is 71 creatinine 2.32. LDH was 1760, lactic acid was 1.8. And her PCR for wan virus was positive. D-dimer was 1.87. On 12/17/2020 patient seen in follow-up in intensive care unit, patient was admitted on 12/15/2020 with Covid pneumonia and acute kidney injury, onset of symptoms was 90s prior to presentation. Transfer to the ICU on the same day on 12/15/2020, patient is on 15 L of oxygen and 100% nonrebreather, and his pulse ox is between 85-88%. Patient has been afebrile. Hemodynamically stable, 0.9 normal saline was seen infusing at 75 ML per hour. Awake and alert, appears to be in no acute distress. Patient refused convalescent plasma transfusion, she is awaiting possibly some rehab today she is expected to be available this morning. Remains on dexamethasone 6 mg daily, vitamins, and prophylactic anticoagulation in the form of Lovenox. Today's potassium was 6.4 and patient was given insulin and dextrose, nephrology is following and managing electrolytes. Today's chest x-ray shows progression with more confluent formation of bilateral airspace disease. On 12/18/2020 patient seen in follow-up in the intensive care unit, currently remains on 15 L per high flow nasal cannula, and her percent nonrebreather, and only satting 83-80%, she will be switched over to Airvo to improve her O2 saturations, she remains on Decadron 6 mg daily, she is on prophylactic dose Lovenox 30 mg daily, today's chest x-ray is pending. Today's labs have been reviewed, showing white blood cell count 12.6, hemoglobin 12.2, last d-dimer was yesterday, today is d-dimer is pending, sodium is 137, potassium is 5.7, B1 of 51, creatinine is 1.46. LDH is still elevated at 2091, and CRP is 84.2. Progesterone level was negative at 0.19. Patient did receive a dose of Actemra on 12/17/2020 Progress note dated 12/19/2020. This is a 75-year-old female with a history of COPD, hypertension, diabetes, and chronic kidney disease. She is again seen here in the intensive care unit, room 266. She remains on AIRVO, at 60 L/m, and an estimated FiO2 of 92%. On top of that, she is wearing a nonrebreather mask. She is getting saline at 75 mL an hour. With that, saturations are in the mid to high. White count 18.6, he will let 0.5, hematocrit 34.2, and platelet count 283,000. D-dimer 13.81. Sodium and potassium are normal. Chloride 109, CO2 25, anion gap 4, BUN 44, creatinine 1.15. C-reactive protein is 44.1 and LDH is 2013. Chest x-ray shows persistent bilateral infiltrates, which may have progressed. Progress note dated 12/20/2020. 75-year-old female, who is again seen in the intensive care unit, room 266. She remains on BiPAP, 25/02, with an FiO2 100%. She's getting saline at 75 and hour. She could not tolerate the AIRVO. We are going to place a PICC line in her, for TPN. The patient is doing about the same. While on BiPAP, her saturations are in the low 90s. White count 18.3, hemoglobin, hematocrit, and platelet count normal. D-dimer greater than 34.10. Sodium 138, potassium 5.1, chlorides 107, CO2 27, anion gap 4, BUN 47, and creatinine 1.18. LDH is 2437. C- reactive protein is 26.3. There was no chest x-ray today. Progress note dated 12/21/2020. 75-year-old female, was intubated on December 20 for worsening hypoxemic respiratory failure. She was again seen in room 266 in the intensive care unit. Yesterday she was on BiPAP at 14/6 and 100%. I forcefully, Thursday, she got worse, and could not tolerate AIRVO. Currently, her ventilator settings are volume assist control mode, rate 36, tidal volume 400, FiO2 100%, PEEP of 21. Blood gases show a PaO2 of 81, PaCO2 of 62, and a pH is 7.18. Those blood gases were done on a rate of 30. She remains on norepinephrine at 1.7 mcg/m, propofol at 50 mcg/kg/m, Nimbex at 1.5 mcg/kg/m, TPN at 30 mL an hour which will be discontinued later today when tube feeds are started, and saline at 50 mL an hour. An arterial line was placed today on this patient. White count 30.7, hemoglobin pending, hematocrit 33.2, and platelet count was normal. Sodium 140, potassium 5.6, chlorides 112, CO2 20, anion gap 8, BUN 50, and creatinine 1.61. Albumin is 2.5. Ionized calcium is low at 3.7, and I told the nurse to give the patient an amp of either calcium chloride or calcium gluconate. Chest x-ray shows diffuse bilateral infiltrates. Objective - Vital Signs Vital signs: Vital Signs Temp 101.1 F H 12/21/20 08:00 Pulse 95 12/21/20 10:15 Resp 36 H 12/21/20 10:15 BP 90/56 12/21/20 10:15 Pulse Ox 88 L 12/21/20 10:15 Intake & Output 12/20/20 12/21/20 12/21/20 18:59 06:59 18:59 Intake Total 877.876 4051.930 314.847 Output Total 815 645 100 Balance -809.909 0582.930 214.847 Weight 81.7 kg 85.6 kg 85.6 kg Intake: IV 465 2990 160 Mvi, Adult No.4 with Vit 90 390 60 K 10 ml Trace (Conc-1Ml/ Dose) 1 ml Sodium Acetate 20 meq Sodium Phosphate 15 mmol Calcium Gluconate 1 gm Magnesium Sulfate gm 0.5 gm In Amino Acid 5 %-D15w 1,000 ml @ 30 mls/ hr IV .Q24H [facility] Rx#: [id number] Sodium Chloride 0.9% 1, 50 000 ml @ 50 mls/hr IV . Q20H [facility] Rx#:[id number] Sodium Chloride 0.9% 1, 375 000 ml @ 75 mls/hr IV . [id number] [facility] Rx#:[id number] Sodium Chloride 0.9% 2, 2600 50 000 ml @ 999 mls/hr IV . Q2H1M [facility] Rx#:[id number] Intake, IV Titration 9.601 291.930 154.847 Amount Cisatracurium 200 mg In 81.619 Sodium Chloride 0.9% 180 ml @ 1 MCG/KG/MIN 4.902 mls/hr IV .Q24H [facility] Rx#: [id number] Norepinephrine 8 mg In 42.500 55.990 Sodium Chloride 0.9% 250 ml @ 0.05 MCG/KG/MIN 7. 904 mls/hr IV .Q24H [facility] Rx#:[id number] propofoL 1,000 mg In 9.601 167.811 98.857 Empty Bag 1 bag @ Titrate IV .Q0M [facility] Rx#: [id number] Output: Urine 815 645 100 Other: Voiding Method Indwelling Catheter Indwelling Catheter Indwelling Catheter # Voids 0 ABP, PAP, CO, CI - Last Documented Arterial Blood Pressure 91/43 - Exam The patient is sedated and chemically paralyzed, intubated, with an orally placed endotracheal tube, and NG tube. HEENT examination is grossly unremarkable. Neck supple. Full range of motion. No adenopathy thyromegaly or neck vein distention. Cardiovascular examination reveals regular rhythm rate. S1-S2 normal. No S3 or S4. No discernible murmur noted. Heart rate 101 bpm. Lungs reveal diffuse bilateral rhonchi, and bilateral crackles. No wheezes. B reath sounds equal. Abdomen soft bowel sounds are heard. No masses or tenderness. Extremities are intact. No cyanosis clubbing or edema. Skin is without rash or lesion. Neurologic examination could not be evaluated as the patient's currently sedated and chemically paralyzed. - Labs CBC & Chem 7: 12/21/20 07:28 12/21/20 09:22 Labs: Abnormal Lab Results - Last 24 Hours (Table) 12/20/20 12/20/20 12/20/20 Range/Units 03:39 12:25 16:11 WBC (3.8-10.6) k/uL RBC (3.80-5.40) m/uL Hct (34.0-46.0) % RDW (11.5-15.5) % ABG pH 7.28 L (7.35-7.45) ABG pCO2 56 H (35-45) mmHg ABG pO2 45 L* (83-108) mmHg ABG HCO3 26 H (21-25) mmol/L ABG Total CO2 28 H (19-24) mmol/L ABG O2 Saturation 74.0 L (94-97) % Sodium (137-145) mmol/L Potassium (3.5-5.1) mmol/L Chloride (98-107) mmol/L Carbon Dioxide (22-30) mmol/L BUN (7-17) mg/dL Creatinine (0.52-1.04) mg/dL Glucose (74-99) mg/dL POC Glucose (mg/dL) 155 H (75-99) mg/dL Calcium (8.4-10.2) mg/dL Ionized Calcium Solomon (4.5-5.3) mg/dL AST (14-36) U/L ALT (4-34) U/L Alkaline Phosphatase (38-126) U/L Total Protein (6.3-8.2) g/dL Albumin (3.5-5.0) g/dL Triglycerides 278 H (<150) mg/dL 12/20/20 12/20/20 12/20/20 Range/Units 17:51 18:19 21:00 WBC (3.8-10.6) k/uL RBC (3.80-5.40) m/uL Hct (34.0-46.0) % RDW (11.5-15.5) % ABG pH 7.22 L 7.23 L (7.35-7.45) ABG pCO2 63 H 56 H (35-45) mmHg ABG pO2 39 L* 50 L* (83-108) mmHg ABG HCO3 26 H (21-25) mmol/L ABG Total CO2 28 H 25 H (19-24) mmol/L ABG O2 Saturation 62.2 L 78.9 L (94-97) % Sodium (137-145) mmol/L Potassium (3.5-5.1) mmol/L Chloride (98-107) mmol/L Carbon Dioxide (22-30) mmol/L BUN (7-17) mg/dL Creatinine (0.52-1.04) mg/dL Glucose (74-99) mg/dL POC Glucose (mg/dL) 227 H (75-99) mg/dL Calcium (8.4-10.2) mg/dL Ionized Calcium Solomon (4.5-5.3) mg/dL AST (14-36) U/L ALT (4-34) U/L Alkaline Phosphatase (38-126) U/L Total Protein (6.3-8.2) g/dL Albumin (3.5-5.0) g/dL Triglycerides (<150) mg/dL 12/21/20 12/21/20 12/21/20 Range/Units 00:12 04:28 06:16 WBC (3.8-10.6) k/uL RBC (3.80-5.40) m/uL Hct (34.0-46.0) % RDW (11.5-15.5) % ABG pH 7.18 L* (7.35-7.45) ABG pCO2 62 H (35-45) mmHg ABG pO2 81 L (83-108) mmHg ABG HCO3 (21-25) mmol/L ABG Total CO2 25 H (19-24) mmol/L ABG O2 Saturation 93.5 L (94-97) % Sodium (137-145) mmol/L Potassium (3.5-5.1) mmol/L Chloride (98-107) mmol/L Carbon Dioxide (22-30) mmol/L BUN (7-17) mg/dL Creatinine (0.52-1.04) mg/dL Glucose (74-99) mg/dL POC Glucose (mg/dL) 203 H 180 H (75-99) mg/dL Calcium (8.4-10.2) mg/dL Ionized Calcium Solomon (4.5-5.3) mg/dL AST (14-36) U/L ALT (4-34) U/L Alkaline Phosphatase (38-126) U/L Total Protein (6.3-8.2) g/dL Albumin (3.5-5.0) g/dL Triglycerides (<150) mg/dL 12/21/20 12/21/20 12/21/20 Range/Units 07:28 07:28 09:22 WBC 30.7 H (3.8-10.6) k/uL RBC 3.37 L (3.80-5.40) m/uL Hct 33.2 L (34.0-46.0) % RDW 16.2 H (11.5-15.5) % ABG pH (7.35-7.45) ABG pCO2 (35-45) mmHg ABG pO2 (83-108) mmHg ABG HCO3 (21-25) mmol/L ABG Total CO2 (19-24) mmol/L ABG O2 Saturation (94-97) % Sodium 127 L (137-145) mmol/L Potassium 6.5 H* 5.6 H (3.5-5.1) mmol/L Chloride 112 H (98-107) mmol/L Carbon Dioxide 15 L 20 L (22-30) mmol/L BUN 45 H 50 H (7-17) mg/dL Creatinine 1.15 H 1.61 H (0.52-1.04) mg/dL Glucose 147 H 161 H (74-99) mg/dL POC Glucose (mg/dL) (75-99) mg/dL Calcium 6.2 L* 6.7 L (8.4-10.2) mg/dL Ionized Calcium Solomon 3.7 L (4.5-5.3) mg/dL AST 119 H (14-36) U/L ALT 85 H (4-34) U/L Alkaline Phosphatase 218 H (38-126) U/L Total Protein 5.1 L (6.3-8.2) g/dL Albumin 2.5 L (3.5-5.0) g/dL Triglycerides (<150) mg/dL 12/21/20 Range/Units 11:55 WBC (3.8-10.6) k/uL RBC (3.80-5.40) m/uL Hct (34.0-46.0) % RDW (11.5-15.5) % ABG pH (7.35-7.45) ABG pCO2 (35-45) mmHg ABG pO2 (83-108) mmHg ABG HCO3 (21-25) mmol/L ABG Total CO2 (19-24) mmol/L ABG O2 Saturation (94-97) % Sodium (137-145) mmol/L Potassium (3.5-5.1) mmol/L Chloride (98-107) mmol/L Carbon Dioxide (22-30) mmol/L BUN (7-17) mg/dL Creatinine (0.52-1.04) mg/dL Glucose (74-99) mg/dL POC Glucose (mg/dL) 133 H (75-99) mg/dL Calcium (8.4-10.2) mg/dL Ionized Calcium Solomon (4.5-5.3) mg/dL AST (14-36) U/L ALT (4-34) U/L Alkaline Phosphatase (38-126) U/L Total Protein (6.3-8.2) g/dL Albumin (3.5-5.0) g/dL Triglycerides (<150) mg/dL Microbiology - Last 24 Hours (Table) 12/15/20 20:18 Blood Culture - Preliminary Blood No Growth after 120 hours 12/15/20 20:00 Blood Culture - Preliminary Blood No Growth after 120 hours Assessment and Plan Assessment: #1. Acute hypoxic respiratory failure secondary to acute COVID 19 pneumonitis, S/P Tocilizumab on 12/17/2020, refused convalescent plasma, with worsening hyp oxemic respiratory failure requiring intubation and mechanical ventilation on December 20. #2. Acute on chronic kidney disease, likely related to hypovolemia #3. Hypovolemic hyponatremia on presentation improvement with hydration #4. Acute hyperkalemia secondary to acute on chronic kidney disease #5. Elevated inflammatory markers #6. Type 2 diabetes mellitus #7. Benign essential hypertension #8. Dyslipidemia #9. History of underlying COPD Plan: Plan dated 12/19/2020. Currently, the patient's overall condition is quite tenuous. In the end, she may require intubation and mechanical ventilation. We'll continue to monitor her closely. X-ray does show some progression of disease. Labs are reviewed. Medications are reviewed. The patient is currently on vitamins, and Lovenox. Additional recommendations and suggestions are forthcoming. The patient did refuse convalescent plasma. She did receive a dose of TOCI. Plan dated 12/20/2020. The patient was placed back on BiPAP. She seemed to do better on that. A PICC line will be placed for TPN. Additional recommendations and suggestions are forthcoming. The patient did refuse convalescent plasma, but did get TOCI. We will continue to follow make recommendations were appropriate. Prognosis is guarded. The patient may end up on mechanical ventilator. Plan dated 12/21/2020. The patient was intubated on December 20, for worsening hypoxemic respiratory failure. Blood gases have been reviewed. She is currently on 1.7 mcg/m of norepinephrine, propofol at 50 mcg/kg/m, and Nimbex at 1.5 mcg/kg/m, with train of 4 monitoring. The patient will be started on tube feeds today. The TPN will be discontinued. Labs, x-rays, and medications are reviewed. She gets one amp of calcium chloride for calcium gluconate for a low ionized calcium. Prognosis is poor. Time with Patient: Greater than 30
--- NOTE | 2020-12-21 12:59 | P.PN ---
Subjective Progress Note Date: 12/21/20 HISTORY OF PRESENT ILLNESS: 75-year-old female one of Dr. Thurston's patient with multiple medical problem known to have history of COPD, type 2 diabetes, hypertension, chronic kidney disease who apparently was exposed to Covid 19 from her daughter and granddaughter 5 days ago, patient was tested on Thursday was positive. Patient developed to have worsening dyspnea and shortness of breath cough productive Dr. phlegm along with tightness and wheezes with low-grade temperature and nausea and abdominal pain with generalized fatigue tiredness become debilitated not been able to ambulate and walk her symptoms become much worse ended up coming to the emergency department at [facility] on 12/15/2020 where was seen and evaluated her chest x-ray showed bilateral infiltrate, patient was hypoxic requiring high flow O2. Patient was started on steroid pulmonary consultation was obtained patient will be hospitalized with above problem. 12/17: Patient remains in the ICU, on nonrebreather with pulse ox running between 85 and 92%. Respiratory rate in the 20s to 30, heart rate in the 70s and 80s, afebrile, blood pressure 126/59. Repeat blood work reveals WBC 14.4, hemoglobin 12.2, count 291. D-dimer 2.48. Sodium 134 initially 6.4 this morning repeat 5.9. Chloride 105, CO2 23, BUN 55 and creatinine 1.53. Blood sugars running between 143 and 244. Ferritin 2825. AST 85, ALT 53. LDH 2007. CK 146. Repeat chest x-ray reveals progression with more confluent formation of bilateral airspace disease. Renal ultrasound reveals no hydronephrosis. A 1.1 cm cortical cyst in the right kidney. There may be underlying hepatic steatosis. Patient is followed by nephrology with plan to continue IV fluids at 75 mL per hour, patient of losartan and allopurinol. Strict I&O, bladder scan. 12/18: Patient states that she is feeling more comfortable today. She is on AirVo and NRB with pulse ox of 95%. She has been afebrile, heart rate 86, respiratory rate 26-34, blood pressure 105/45. Repeat blood work reveals WBC 12.6, hemoglobin 12.2, platelet count 286. Lymphocytes 0.5. Sodium 137, potassium 5.7, chloride 108, CO2 23, BUN 51 and creatinine 1.46. Blood sugars running between 148 and 264. Repeat chest x-ray has been done and report is pending. Patient is followed by nephrology and is status post 1 dose of IV Lasix yesterday as well as dextrose, insulin,. Patient received Tocilizumab x1 yesterday 12/19: Patient's pulse ox readings have worsened and she has been on Airvo and NRB with pulse ox in the mid 80s and down to 79. Patient was placed on BiPAP. Patient is really not able to communicate at this time with pulse ox dropping with only speaking a few words. She has been afebrile, heart rate 80, blood pressure 147/67, pulse ox 74% on BiPAP. Repeat blood work reveals WBC 18.6, hemoglobin 11.5, platelet count 283. D-dimer 13.81. BUN 44 and creatinine 1.15. Blood sugars running between 100 3460. LDH 2013. C-reactive protein 44.1. 12/20: She remains in the intensive care unit currently on BiPAP pulse oxing 86% on 100% FiO2 with noted increased fatigue. Patient may require intubation. TPN is to be started today. She's been afebrile, heart rate in the 60s, blood pressure 151/71. WBC 18.3, hemoglobin 11.8, platelet count 220. D-dimer greater than 34.1. Electrolytes normal. BUN 47 creatinine 1.18. Blood sugars running between 119 and 145. AST 67, a ALT 80, alkaline phosphatase 169. LDH 2437. CK 52. C-reactive protein 26.3. 12/21: Patient remains in the intensive care unit. Her oxygenation continued to decline and she was intubated yesterday afternoon/evening. Patient is on norepinephrine, Nimbex, TPN. Patient is to start TPN today. Temperature max 101.1, heart rate 101, respiratory rate 36, blood pressure 130/70, pulse ox 91%. WBC 30.7, hemoglobin pending, platelet count 244. Initial sodium 127 with potassium 6.5, but repeat or sodium 140 and potassium 5.6, chloride 112, CO2 20, BUN 15 creatinine 1.61. Blood sugars running between 131 at 180. AST 119, ALT 85, alkaline phosphatase 218. Repeat chest x-ray reveals interstitial infiltrates as well as mid and lower lung consolidation, increasing on the rig ht. Patient's daughter is also admitted with Covid 19 infection and observation bed #160 and was updated. REVIEW OF SYSTEMS: Unable to obtain due to intubation PHYSICAL EXAMINATION: Gen: This is 75-year-old female iICU bed, she appears to be comfortable on ventilator HEENT: Head is atraumatic, normocephalic. Pupils equal, round. Sclerae is ani cteric. Oral ET tube. NECK: Supple. No JVD. No lymphadenopathy. No thyromegaly. LUNGS: Decreased breath some bilateral rhonchi slight crackles in the bases more in the right than the left side mild expiratory wheezes. HEART: Regular rate and rhythm. No murmur. ABDOMEN: Soft. Bowel sounds are present. No masses. No tenderness. Denson Catheter draining clear ayesha urine. EXTREMITIES: No pedal edema. NEUROLOGICAL: Patient is intubated. ASSESSMENT AND PLAN: 1. Acute hypoxic respiratory failure: Secondary to Covid 19 infection. Patient has required intubation and mechanical ventilation, status post Tocilizumab x1, continue Dexamethasone 6 mg daily, Lovenox 40 mg subcu twice daily, supplements. Pulmonary medicine consult appreciated. Lasix 20 mg IV 1 per ne phrology. 2. Acute Covid 19 pneumonitis. Continue in #1. 3. D-dimer elevation secondary to Covid 19. 4. Acute kidney injury with chronic kidney disease stage III: nephrology consult appreciated. 5. Severe hyponatremia, resolved: Most likely the effect of the Covid 19 causing mild SIADH. 6. Type 2 diabetes, uncontrolled with hyperglycemia. Continue Levemir 5 units daily, NovoLog scale. 7. COPD with slight exacerbation with the Covid 19 infection and pneumonitis continue dexamethasone 6 mg a day, continue albuterol inhaler. 8. Sepsis with septic shock secondary to Covid 19. Patient has been started on norepinephrine. 9. Moderate protein calorie malnutrition due to inability eat, nothing by mouth status. Patient to start tube feedings. 10. Hypertension: Hold losartan, and metoprolol due to hypotension. 11. Hyperlipidemia. Off Lipitor. 12. GI prophylaxis: Continue patient on pantoprazole 40 mg IV push daily. 13. DVT prophylaxis: Continue Lovenox 40 mg subcutaneous twice daily. CODE STATUS: Full code. Prognosis guarded. Impression and plan of care have been directed as dictated by the signing physician. Yecenia Mendosa nurse practitioner acting as scribe for signing physician. Objective - Vital Signs Vital signs: Vital Signs Temp 101.1 F H 12/21/20 08:00 Pulse 95 12/21/20 10:15 Resp 36 H 12/21/20 10:15 BP 90/56 12/21/20 10:15 Pulse Ox 88 L 12/21/20 10:15 Intake & Output 12/20/20 12/21/20 12/21/20 18:59 06:59 18:59 Intake Total 472.061 2741.930 222.822 Output Total 815 645 85 Balance -284.697 4016.930 137.822 Weight 81.7 kg 85.6 kg 85.6 kg Intake: IV 465 2990 110 Mvi, Adult No.4 with Vit 90 390 60 K 10 ml Trace (Conc-1Ml/ Dose) 1 ml Sodium Acetate 20 meq Sodium Phosphate 15 mmol Calcium Gluconate 1 gm Magnesium Sulfate gm 0.5 gm In Amino Acid 5 %-D15w 1,000 ml @ 30 mls/ hr IV .Q24H [facility] Rx#: [id number] Sodium Chloride 0.9% 1, 375 000 ml @ 75 mls/hr IV . [id number] [facility] Rx#:[id number] Sodium Chloride 0.9% 2, 2600 50 000 ml @ 999 mls/hr IV . Q2H1M [facility] Rx#:[id number] Intake, IV Titration 9.601 291.930 112.822 Amount Cisatracurium 200 mg In 81.619 Sodium Chloride 0.9% 180 ml @ 1 MCG/KG/MIN 4.902 mls/hr IV .Q24H [facility] Rx#: [id number] Norepinephrine 8 mg In 42.500 13.965 Sodium Chloride 0.9% 250 ml @ 0.05 MCG/KG/MIN 7. 904 mls/hr IV .Q24H [facility] Rx#:[id number] propofoL 1,000 mg In 9.601 167.811 98.857 Empty Bag 1 bag @ Titrate IV .Q0M [facility] Rx#: [id number] Output: Urine 815 645 85 Other: Voiding Method Indwelling Catheter Indwelling Catheter Indwelling Catheter # Voids 0 ABP, PAP, CO, CI - Last Documented Arterial Blood Pressure 91/43 - Labs CBC & Chem 7: 12/21/20 07:28 12/21/20 09:22 Labs: Abnormal Lab Results - Last 24 Hours (Table) 12/20/20 12/20/20 12/20/20 Range/Units 03:39 12:25 16:11 WBC (3.8-10.6) k/uL RBC (3.80-5.40) m/uL Hct (34.0-46.0) % RDW (11.5-15.5) % ABG pH 7.28 L (7.35-7.45) ABG pCO2 56 H (35-45) mmHg ABG pO2 45 L* (83-108) mmHg ABG HCO3 26 H (21-25) mmol/L ABG Total CO2 28 H (19-24) mmol/L ABG O2 Saturation 74.0 L (94-97) % Sodium (137-145) mmol/L Potassium (3.5-5.1) mmol/L Chloride (98-107) mmol/L Carbon Dioxide (22-30) mmol/L BUN (7-17) mg/dL Creatinine (0.52-1.04) mg/dL Glucose (74-99) mg/dL POC Glucose (mg/dL) 155 H (75-99) mg/dL Calcium (8.4-10.2) mg/dL Ionized Calcium Solomon (4.5-5.3) mg/dL AST (14-36) U/L ALT (4-34) U/L Alkaline Phosphatase (38-126) U/L Total Protein (6.3-8.2) g/dL Albumin (3.5-5.0) g/dL Triglycerides 278 H (<150) mg/dL 12/20/20 12/20/20 12/20/20 Range/Units 17:51 18:19 21:00 WBC (3.8-10.6) k/uL RBC (3.80-5.40) m/uL Hct (34.0-46.0) % RDW (11.5-15.5) % ABG pH 7.22 L 7.23 L (7.35-7.45) ABG pCO2 63 H 56 H (35-45) mmHg ABG pO2 39 L* 50 L* (83-108) mmHg ABG HCO3 26 H (21-25) mmol/L ABG Total CO2 28 H 25 H (19-24) mmol/L ABG O2 Saturation 62.2 L 78.9 L (94-97) % Sodium (137-145) mmol/L Potassium (3.5-5.1) mmol/L Chloride (98-107) mmol/L Carbon Dioxide (22-30) mmol/L BUN (7-17) mg/dL Creatinine (0.52-1.04) mg/dL Glucose (74-99) mg/dL POC Glucose (mg/dL) 227 H (75-99) mg/dL Calcium (8.4-10.2) mg/dL Ionized Calcium Solomon (4.5-5.3) mg/dL AST (14-36) U/L ALT (4-34) U/L Alkaline Phosphatase (38-126) U/L Total Protein (6.3-8.2) g/dL Albumin (3.5-5.0) g/dL Triglycerides (<150) mg/dL 12/21/20 12/21/20 12/21/20 Range/Units 00:12 04:28 06:16 WBC (3.8-10.6) k/uL RBC (3.80-5.40) m/uL Hct (34.0-46.0) % RDW (11.5-15.5) % ABG pH 7.18 L* (7.35-7.45) ABG pCO2 62 H (35-45) mmHg ABG pO2 81 L (83-108) mmHg ABG HCO3 (21-25) mmol/L ABG Total CO2 25 H (19-24) mmol/L ABG O2 Saturation 93.5 L (94-97) % Sodium (137-145) mmol/L Potassium (3.5-5.1) mmol/L Chloride (98-107) mmol/L Carbon Dioxide (22-30) mmol/L BUN (7-17) mg/dL Creatinine (0.52-1.04) mg/dL Glucose (74-99) mg/dL POC Glucose (mg/dL) 203 H 180 H (75-99) mg/dL Calcium (8.4-10.2) mg/dL Ionized Calcium Solomon (4.5-5.3) mg/dL AST (14-36) U/L ALT (4-34) U/L Alkaline Phosphatase (38-126) U/L Total Protein (6.3-8.2) g/dL Albumin (3.5-5.0) g/dL Triglycerides (<150) mg/dL 12/21/20 12/21/20 12/21/20 Range/Units 07:28 07:28 09:22 WBC 30.7 H (3.8-10.6) k/uL RBC 3.37 L (3.80-5.40) m/uL Hct 33.2 L (34.0-46.0) % RDW 16.2 H (11.5-15.5) % ABG pH (7.35-7.45) ABG pCO2 (35-45) mmHg ABG pO2 (83-108) mmHg ABG HCO3 (21-25) mmol/L ABG Total CO2 (19-24) mmol/L ABG O2 Saturation (94-97) % Sodium 127 L (137-145) mmol/L Potassium 6.5 H* 5.6 H (3.5-5.1) mmol/L Chloride 112 H (98-107) mmol/L Carbon Dioxide 15 L 20 L (22-30) mmol/L BUN 45 H 50 H (7-17) mg/dL Creatinine 1.15 H 1.61 H (0.52-1.04) mg/dL Glucose 147 H 161 H (74-99) mg/dL POC Glucose (mg/dL) (75-99) mg/dL Calcium 6.2 L* 6.7 L (8.4-10.2) mg/dL Ionized Calcium Solomon 3.7 L (4.5-5.3) mg/dL AST 119 H (14-36) U/L ALT 85 H (4-34) U/L Alkaline Phosphatase 218 H (38-126) U/L Total Protein 5.1 L (6.3-8.2) g/dL Albumin 2.5 L (3.5-5.0) g/dL Triglycerides (<150) mg/dL Microbiology - Last 24 Hours (Table) 12/15/20 20:18 Blood Culture - Preliminary Blood No Growth after 120 hours 12/15/20 20:00 Blood Culture - Preliminary Blood No Growth after 120 hours
[2020-12-21] MEDS ORDERED: SODIUM CHLORIDE 0.9% 1,000 ML IV ONE (14:00)
[2020-12-21] MEDS ORDERED: SODIUM CHLORIDE 0.9% 500 ML 500 ML IV ONE (14:00)
[2020-12-21] MEDS: NOREPINEPHRINE 8 MG in SODIUM CHLORIDE 0.9% 250 ML IV SCH ×3 (14:31→23:24)
[2020-12-21] MEDS ORDERED: [UNRECOGNIZED DRUG - REMARK] IV SCH ×7 (15:00)
[2020-12-21 19:02] LABS: Glucose,Whole Blood 147 mg/dL (75-99)
[2020-12-21] MEDS: CISATRACURIUM 200 MG in SODIUM CHLORIDE 0.9% 180 ML IV SCH ×2 (19:05→23:44)
[2020-12-21 19:30] LABS: Albumin 2.3 g/dL (3.5-5.0); Total Bilirubin 0.7 mg/dL (0.2-1.3)
[2020-12-21 19:46] LABS: Potassium 6.2 mmol/L (3.5-5.1)
--- NOTE | 2020-12-21 20:03 | PN ---
PROGRESS NOTE Patient is seen for followup for acute kidney injury. Patient's renal failure had been improving, with creatinine going down to about 1.1 yesterday. However, it appears that her creatinine has worsened, and it went up to 1.6 today. Patient's blood pressure had been low sporadically. Otherwise, urine output is maintained at about 100 to 50 mL/hour. Labs obtained early this morning were thought to be inaccurate, as they were obtained closed to the PICC line. Serum creatinine was 1.15 this morning; however, repeat labs 2 hours later showed creatinine of 1.6. Urine output, as mentioned, is maintained. Potassium was 6.5 earlier and now it is 5.6. Patient's respiratory status has worsened and she is currently needing 100% FiO2 with high PEEP. Blood pressure this morning 99/49, heart rate 90 per minute. She has had a fever of 101 degrees Fahrenheit. Patient is not examined. Case was discussed with nursing staff. Labs from this morning show sodium 140, potassium 5.6, chloride 112. CO2 is 20, BUN 50, creatinine 1.6, calcium 6.7. ASSESSMENT: 1. Acute kidney injury, acute tubular necrosis, associated with the underlying COVID infection, inflammatory response as well as hypotension. Renal function had improved, but as patient's general condition worsened with development of hypotension and hypoxia, renal function has also worsened. We will try a dose of Lasix. 2. Hyperkalemia associated with acute kidney injury and use of angiotensin receptor blockers. It had improved, but serum potassium is high again, most likely related to the new metabolic acidosis and worsening renal function. 3. COVID pneumonia. 4. Acute hypoxic respiratory failure secondary to COVID pneumonia. 5. Chronic kidney disease, stage 3. Baseline creatinine around 1.5 but as low as 1.1 for the last few days. Etiology is likely nephrosclerosis. 6. Metabolic acidosis. Serum CO2 had improved to 20 from repeat labs today. Therefore I will hold off on the IV bicarb for now and repeat potassium later on tonight. PLAN: Repeat electrolytes later on tonight. Consider adding bicarb drip if patient remains acidotic and hyperkalemic. Continue to avoid nephrotoxic agents. MMODL / IJN: [id number] /
[2020-12-21] MEDS ORDERED: SODIUM BICARB 8.4% 50 ML SYR (1 MEQ/ML) IV STA (20:41)
[2020-12-21] MEDS ORDERED: INSULIN REGULAR 100 UNIT/ML VIAL IV ONE (20:41)
[2020-12-21] MEDS ORDERED: DEXTROSE 50% SYRINGE 50 ML IVP STA (20:42)
[2020-12-21] MEDS ORDERED: DEXTROSE 5% IN WATER 1,000 ML with SODIUM BICARB (1 MEQ/ML) 150 ML IV SCH (20:45)
[2020-12-21 21:11] LABS: ABG Base Excess -6.3 mmol/L; ABG HCO3 22 mmol/L (21-25); ABG Oxygen Saturation 79.7 % (94-97); ABG PCO2 62 mmHg (35-45); ABG TCO2 24 mmol/L (19-24); Allen Test Performed? Yes
[2020-12-21 21:14] LABS: ABG PH 7.17 (7.35-7.45); ABG PO2 46 mmHg (83-108)
--- NOTE | 2020-12-21 21:22 | XR ---
EXAMINATION TYPE: XR chest 1V portable DATE OF EXAM: 12/21/2020 COMPARISON: 12/21/2020 INDICATION: Oxygen desaturation, rule out pneumothorax TECHNIQUE: Single frontal view of the chest is obtained. FINDINGS: The heart size is normal. The pulmonary vasculature is normal. Views increased lung markings are present bilaterally suspicious for the mid and lower lung strong. Endotracheal tube tip is above the tamica. Nasogastric tube transverses the thorax. Left-sided PICC l ine is present with the tip in the distal superior vena cava region There is interval development of a moderate size pneumothorax at the left apex. Small amount of locul ated pneumothorax is not excluded at the left base. Pleural fluid may be present. IMPRESSION: 1. Moderate sized left pneumothorax estimated at 35%. 2. Bilateral lung infiltrates similar to comparison. 3. Lines and catheters discussed above. A [place] critical message alert has been initiated for Yohannes Corcoran via the [employer] tical Results System on 12/21/2020 9:20 PM. This message alert has been sent to Yohannes Corcoran via the preferences provided by the clinician for the receipt of Radiology Critical Findings. Message ID [id number].
[2020-12-21] MEDS ORDERED: LIDOCAINE 1% INJ 10MG/ML (20 ML MDV) ONE (21:35)
--- NOTE | 2020-12-21 23:17 | XR ---
EXAMINATION TYPE: XR chest 1V portable DATE OF EXAM: 12/21/2020 COMPARISON: 3 views HISTORY: Check tube placement TECHNIQUE: Single view FINDINGS: There is left-sided chest tube. There is apparent clearing of the pneumothorax compared to exam 2 hours ago. There is extensive soft tissue air on the chest wall bilaterally. Heart size is nor mal. The endotracheal tube is 4 cm from the tamica. There is nasogastric tube. Trachea is midline. There is airspace consolidation in the left lower lobe and right upper lobe above the minor fissure. There is also a patch of infiltrate at the right lung base. IMPRESSION: Significant improvement in the pneumothorax. There is new extensive soft tissue air on th e chest. Bilateral patchy pneumonia unchanged. Normal heart size.
[2020-12-22 00:25] LABS: Glucose,Whole Blood 196 mg/dL (75-99)
[2020-12-22 00:47] LABS: Calcium 6.9 mg/dL (8.4-10.2); Potassium 5.9 mmol/L (3.5-5.1)
[2020-12-22] MEDS ORDERED: DEXTROSE 50% SYRINGE 50 ML IVP ONE ×2 (00:52→06:41)
[2020-12-22] MEDS ORDERED: SODIUM BICARB 8.4% 50 ML SYR (1 MEQ/ML) IV ONE ×2 (00:52→06:41)
[2020-12-22] MEDS ORDERED: CALCIUM GLUCONATE 1 GM in SODIUM CHLORIDE 0.9% 100 ML IVPB ONE ×2 (00:52→06:41)
[2020-12-22] MEDS ORDERED: INSULIN REGULAR 100 UNIT/ML VIAL IV ONE ×2 (00:52→06:41)
[2020-12-22] MEDS: INSULIN ASPART (NovoLOG) 100 UNIT/ML VIAL SQ SCH ×2 (01:10→05:30)
[2020-12-22] MEDS: ARTIFICIAL TEARS-HYPROMELLOSE DROPS 15 ML BTL BOTH EYES SCH ×2 (01:11→05:22)
[2020-12-22] MEDS: ALBUTEROL HFA INHALER INHALATION SCH ×3 (01:15→07:21)
[2020-12-22] MEDS: NOREPINEPHRINE 8 MG in SODIUM CHLORIDE 0.9% 250 ML IV SCH ×4 (01:59→07:25)
[2020-12-22 04:34] VITALS: BP 67/36; TEMP 98.1
[2020-12-22] MEDS: SODIUM CHLORIDE 0.9% 1,000 ML IV SCH (04:56)
[2020-12-22 05:30] LABS: Glucose,Whole Blood 102 mg/dL (75-99)
[2020-12-22 05:38] LABS: ABG Base Excess -26.3 mmol/L; ABG Oxygen Saturation 52.1 % (94-97); ABG TCO2 12 mmol/L (19-24); Allen Test Performed? Yes
[2020-12-22 05:40] LABS: ABG HCO3 9 mmol/L (21-25); ABG PCO2 72 mmHg (35-45); ABG PH <6.80 (7.35-7.45); ABG PO2 41 mmHg (83-108)
[2020-12-22 05:51] LABS: Albumin 1.8 g/dL (3.5-5.0); Calcium 6.8 mg/dL (8.4-10.2)
[2020-12-22 06:20] LABS: Anisocytosis Slight; HCT 39.7 % (34.0-46.0); HGB 12.1 gm/dL (11.4-16.0); Hypochromasia Marked; MCHC 30.4 g/dL (31.0-37.0); Macrocytosis Moderate; Mean Platelet Volume 10.4; Platelet Count 166 k/uL (150-450); RBC 3.77 m/uL (3.80-5.40); RDW 16.3 % (11.5-15.5)
[2020-12-22 06:26] LABS: MCV 105.2 fL (80.0-100.0)
[2020-12-22] MEDS: CISATRACURIUM 200 MG in SODIUM CHLORIDE 0.9% 180 ML IV SCH (07:11)
[2020-12-22 07:43] LABS: Band Neutrophils % 19 %; Metamyelocytes % 13 %; Myelocytes % 1 %; Neutrophils % (M) 58 %; Nucleated Red Blood Cells 3 /100 WBC (0-0); Total Cells Counted 200
[2020-12-22 07:44] LABS: Lymphocytes # (M) 1.16 k/uL (1.0-4.8); Metamyelocytes # (M) 2.52 k/uL (0); Monocytes # (M) 0.78 k/uL (0-1.0); Myelocytes # (M) 0.19 k/uL (0); Toxic Granulation Present; WBC 19.4 k/uL (3.8-10.6)
[2020-12-22 07:45] LABS: Toxic Vacuolation Present
--- NOTE | 2020-12-22 07:50 | PCN ---
PROCEDURE NOTE PROCEDURE: Left-sided chest tube. MANAGER INTEGRATION: Dr. Corcoran. PREOP DIAGNOSIS: Left pneumothorax. POSTOP DIAGNOSIS: Left pneumothorax. PROCEDURE IN DETAIL: The patient was placed in the usual position. A small incision was made between the anterior and mid axillary line at the 5th intercostal space. The forceps were used to dissect down between the rib. The forceps was then used to puncture into the pleural cavity. There was a whoosh of air. A #28-Italian tube was inserted. It was sutured in place. A sterile dressing was applied. The patient tolerated the procedure well. The chest x-ray showed excellent placement of the chest tube in the apex of the left lung. There was no immediate complication. The patient tolerated the procedure well. MMODL / IJN: [id number] /
[2020-12-22 08:08] VITALS: PULSE 82; RESP 24
--- NOTE | 2020-12-22 12:43 | P.DS ---
Providers Date of admission: 12/15/20 22:42 Expected date of discharge: 12/22/20 Attending physician: Hay Menon Consults: 12/16/20 05:57 Consult Physician Routine Consulting Provider: Jovon Wesley Consult Reason/Comments: COVID 19 Do you want consulting provider notified?: Yes 12/16/20 10:23 Consult Physician Routine Consulting Provider: Jackie Rome Consult Reason/Comments: CKD with Acute Kidney Injury Do you want consulting provider notified?: Yes Primary care physician: Nilsa Thurston [facility] Course: HISTORY OF PRESENT ILLNESS: 75-year-old female one of Dr. Thurston's patient with multiple medical problem known to have history of COPD, type 2 diabetes, hypertension, chronic kidney disease who apparently was exposed to Covid 19 from her daughter and granddaughter 5 days ago, patient was tested on Thursday was positive. Patient developed to have worsening dyspnea and shortness of breath cough productive Dr. phlegm along with tightness and wheezes with low-grade temperature and nausea and abdominal pain with generalized fatigue tiredness become debilitated not been able to ambulate and walk her symptoms become much worse ended up coming to the emergency department at [facility] on 12/15/2020 where was seen and evaluated her chest x-ray showed bilateral infiltrate, patient was hypoxic requiring high flow O2. Patient was started on steroid pulmonary consultation was obtained patient will be hospitalized with above problem. 12/17: Patient remains in the ICU, on nonrebreather with pulse ox running between 85 and 92%. Respiratory rate in the 20s to 30, heart rate in the 70s and 80s, afebrile, blood pressure 126/59. Repeat blood work reveals WBC 14.4, hemoglobin 12.2, count 291. D-dimer 2.48. Sodium 134 initially 6.4 this morning repeat 5.9. Chloride 105, CO2 23, BUN 55 and creatinine 1.53. Blood sugars running between 143 and 244. Ferritin 2825. AST 85, ALT 53. LDH 2007. CK 146. Repeat chest x-ray reveals progression with more confluent formation of bilateral airspace disease. Renal ultrasound reveals no hydronephrosis. A 1.1 cm cortical cyst in the right kidney. There may be underlying hepatic st eatosis. Patient is followed by nephrology with plan to continue IV fluids at 75 mL per hour, patient of losartan and allopurinol. Strict I&O, bladder scan. 12/18: Patient states that she is feeling more comfortable today. She is on AirVo and NRB with pulse ox of 95%. She has been afebrile, heart rate 86, respiratory rate 26-34, blood pressure 105/45. Repeat blood work reveals WBC 12.6, hemogl obin 12.2, platelet count 286. Lymphocytes 0.5. Sodium 137, potassium 5.7, chloride 108, CO2 23, BUN 51 and creatinine 1.46. Blood sugars running between 148 and 264. Repeat chest x-ray has been done and report is pending. Patient is followed by nephrology and is status post 1 dose of IV Lasix yesterday as well as dextrose, insulin,. Patient received Tocilizumab x1 yesterday 12/19: Patient's pulse ox readings have worsened and she has been on Airvo and NRB with pulse ox in the mid 80s and down to 79. Patient was placed on BiPAP. Patient is really not able to communicate at this time with pulse ox dropping with only speaking a few words. She has been afebrile, heart rate 80, blood pressure 147/67, pulse ox 74% on BiPAP. Repeat blood work reveals WBC 18.6, hemoglobin 11.5, platelet count 283. D-dimer 13.81. BUN 44 and creatinine 1.15. Blood sugars running between 100 3460. LDH 2013. C-reactive protein 44.1. 12/20: She remains in the intensive care unit currently on BiPAP pulse oxing 86% on 100% FiO2 with noted increased fatigue. Patient may require intubation. TPN is to be started today. She's been afebrile, heart rate in the 60s, blood pressure 151/71. WBC 18.3, hemoglobin 11.8, platelet count 220. D-dimer greater than 34.1. Electrolytes normal. BUN 47 creatinine 1.18. Blood sugars running between 119 and 145. AST 67, a ALT 80, alkaline phosphatase 169. LDH 2437. CK 52. C-reactive protein 26.3. 12/21: Patient remains in the intensive care unit. Her oxygenation continued to decline and she was intubated yesterday afternoon/evening. Patient is on nore pinephrine, Nimbex, TPN. Patient is to start TPN today. Temperature max 101.1, heart rate 101, respiratory rate 36, blood pressure 130/70, pulse ox 91%. WBC 30.7, hemoglobin pending, platelet count 244. Initial sodium 127 with potassium 6.5, but repeat or sodium 140 and potassium 5.6, chloride 112, CO2 20, BUN 15 creatinine 1.61. Blood sugars running between 131 at 180. AST 119, ALT 85, alkaline phosphatase 218. Repeat chest x-ray reveals interstitial infiltrates as well as mid and lower lung consolidation, increasing on the right. Patient's daughter is also admitted with Covid 19 infection and observation bed #160 and was updated. 12/22: Patient on the morning of December 22. Please see nursing documentation for detail. ASSESSMENT AND PLAN: 1. Acute hypoxic respiratory failure: Secondary to Covid 19 infection. 2. Acute Covid 19 pneumonitis. 3. D-dimer elevation secondary to Covid 19. 4. Acute kidney injury with chronic kidney disease stage III 5. Severe hyponatremia, resolved: Most likely the effect of the Covid 19 causing mild SIADH.6. Type 2 diabetes, uncontrolled with hyperglycemia. 7. COPD with slight exacerbation with the Covid 19 infection and pneumonitis. 8. Sepsis with septic shock secondary to Covid 19. 9. Moderate protein calorie malnutrition due to inability eat, nothing by mouth status. 10. Hypertension. 11. Hyperlipidemia. Impression and plan of care have been directed as dictated by the signing physician. Yecenia Mendosa nurse practitioner acting as scribe for signing physician. Patient Condition at Discharge: Undetermined Plan - Discharge Summary New Discharge Prescriptions: No Action Metoprolol Tartrate [Lopressor] 25 mg PO DAILY Glimepiride [Amaryl] 0.5 mg PO AC-BRKFST allopurinoL [Zyloprim] 300 mg PO DAILY Rosuvastatin [Crestor] 10 mg PO HS Montelukast Sodium [Singulair] 10 mg PO DAILY Azithromycin [Zithromax Z-pack (6 tabs)] See Taper PO DIRECTED Telmisartan [Micardis] 80 mg PO DAILY Pantoprazole Sodium [Protonix] 20 mg PO BID Dexamethasone 6 mg PO DAILY Discharge Medication List Metoprolol Tartrate [Lopressor] 25 mg PO DAILY 04/29/16 [History] Glimepiride [Amaryl] 0.5 mg PO AC-BRKFST 11/06/16 [History] allopurinoL [Zyloprim] 300 mg PO DAILY 11/06/16 [History] Azithromycin [Zithromax Z-pack (6 tabs)] See Taper PO DIRECTED 12/15/20 [History] Dexamethasone 6 mg PO DAILY 12/15/20 [History] Montelukast Sodium [Singulair] 10 mg PO DAILY 12/15/20 [History] Pantoprazole Sodium [Protonix] 20 mg PO BID 12/15/20 [History] Rosuvastatin [Crestor] 10 mg PO HS 12/15/20 [History] Telmisartan [Micardis] 80 mg PO DAILY 12/15/20 [History] Follow up Appointment(s)/Referral(s): Nilsa Thurston MD [Primary Care Provider] - 1-2 days Discharge Disposition: - Preliminary Cause of Preliminary Cause of : COVID-19 pneumonia
[2020-12-23 15:30] LABS: ABG PH 7.18 (7.35-7.45)
== END 2020-12-22 09:57 | disposition expired | DRG 871 ==
LOC: EC 18:39 → 4SSUR 22:42 → 3SCARD 23:10 → 2SICU 12-16 08:56
PROVIDERS: ADMIT Internal Medicine Geriatric Medicine; ATTEND Internal Medicine Geriatric Medicine
PROC: 5A0945A Assistance with Respiratory Ventilation, 24-96 Consecutive Hours, High Flow/Velocity Cannula (ICD-10-PCS; 2020-12-16)
PROC: XW033H5 Introduction of Tocilizumab into Peripheral Vein, Percutaneous Approach, New Technology Group 5 (ICD-10-PCS; 2020-12-17)
PROC: 5A09457 Assistance with Respiratory Ventilation, 24-96 Consecutive Hours, Continuous Positive Airway Pressure (ICD-10-PCS; 2020-12-19)
PROC: 02HV33Z Insertion of Infusion Device into Superior Vena Cava, Percutaneous Approach (ICD-10-PCS; 2020-12-20)
PROC: 0BH17EZ Insertion of Endotracheal Airway into Trachea, Via Natural or Artificial Opening (ICD-10-PCS; principal; 2020-12-20 12:00)
PROC: 5A1945Z Respiratory Ventilation, 24-96 Consecutive Hours (ICD-10-PCS; principal; 2020-12-20 12:00)
PROC: 3E043XZ Introduction of Vasopressor into Central Vein, Percutaneous Approach (ICD-10-PCS; principal; 2020-12-20 12:00)
PROC: 4A133B1 Monitoring of Arterial Pressure, Peripheral, Percutaneous Approach (ICD-10-PCS; 2020-12-21)
PROC: 04HY32Z Insertion of Monitoring Device into Lower Artery, Percutaneous Approach (ICD-10-PCS; 2020-12-21)
PROC: 4A133J1 Monitoring of Arterial Pulse, Peripheral, Percutaneous Approach (ICD-10-PCS; 2020-12-21)
PROC: 0W9B30Z Drainage of Left Pleural Cavity with Drainage Device, Percutaneous Approach (ICD-10-PCS; 2020-12-22)
DX: A41.89 Other specified sepsis (principal); U07.1 COVID-19; J95.811 Postprocedural pneumothorax; J96.01 Acute respiratory failure with hypoxia; N17.0 Acute kidney failure with tubular necrosis; J12.82 Pneumonia due to coronavirus disease 2019; R65.21 Severe sepsis with septic shock; E22.2 Syndrome of inappropriate secretion of antidiuretic hormone; J44.0 Chronic obstructive pulmonary disease with (acute) lower respiratory infection; E44.0 Moderate protein-calorie malnutrition; E87.2 Acidosis; D89.835 Cytokine release syndrome, grade 5; A08.39 Other viral enteritis; T82.898A Other specified complication of vascular prosthetic devices, implants and grafts, initial encounter; E11.22 Type 2 diabetes mellitus with diabetic chronic kidney disease; E11.65 Type 2 diabetes mellitus with hyperglycemia; N18.30 Chronic kidney disease, stage 3 unspecified; I12.9 Hypertensive chronic kidney disease with stage 1 through stage 4 chronic kidney disease, or unspecified chronic kidney disease; E78.5 Hyperlipidemia, unspecified; E86.1 Hypovolemia; E87.5 Hyperkalemia; E86.0 Dehydration; N28.1 Cyst of kidney, acquired; L40.9 Psoriasis, unspecified; M10.9 Gout, unspecified; Z68.36 Body mass index [BMI] 36.0-36.9, adult; Z79.84 Long term (current) use of oral hypoglycemic drugs; Z79.899 Other long term (current) drug therapy; Z87.891 Personal history of nicotine dependence; Z90.49 Acquired absence of other specified parts of digestive tract; Z98.51 Tubal ligation status; Z87.19 Personal history of other diseases of the digestive system; Z98.890 Other specified postprocedural states; Z82.3 Family history of stroke; Z80.3 Family history of malignant neoplasm of breast; Z82.49 Family history of ischemic heart disease and other diseases of the circulatory system; Z82.5 Family history of asthma and other chronic lower respiratory diseases; Z80.9 Family history of malignant neoplasm, unspecified
CPT/HCPCS: 36415; 36573; 36600; 71045; 71046; 76770; 78580; 80048; 80053; 81001; 82330; 82533; 82550; 82570; 82728; 82805; 83605; 83615; 83735; 83880; 84100; 84132; 84145; 84300; 84443; 84478; 84484; 84540; 85025; 85027; 85379; 85610; 85652; 85730; 86140; 86850; 86900; 86901; 87040; 87635; 93005; 94002; 94003; 94640; 94660; 96361; 96374; 99285